=== PATIENT | male | born 1940 | race Caucasian/White ===

== ENCOUNTER 2017-09-22 16:06 | Inpatient (IN) | payer MEDICARE, BC ==
[2017-09-22] MEDS ORDERED: Sodium Chloride 0.9% 1000 ML 1,000 ML IV STA (16:39)
[2017-09-22] MEDS ORDERED: ROCEPHIN 1 Gm-D5w 50 ml Bag** 1 G/50 ML IVPB IV STA (17:02)
[2017-09-22] MEDS ORDERED: Zithromax 500 MG/ 250 ML NaCl Premix 500 MG/250 ML IVPB IV STA (17:02)
--- NOTE | 2017-09-22 17:09 | ERPHSYRPT ---
- History of Present Illness Time Seen by Provider: 09/22/17 16:54 Source: patient Exam Limitations: no limitations Patient Subjective Stated Complaint: sob, cough and weakness. pt states onset approx 1.5 weeks service [employer] with decreased appetite pt had chest xray on 09/21 MD called him today and told him to come to er for pneumonia Triage Nursing Assessment: To er c/o sob with exertion and cough. pt arrives p/w /d resp easy and non labored. pt able to ambulate to room without difficulty. coarseness noted to left lungs upper and lower right cta. Physician History: Pt has been coughing for 10 days, diagnosed with Sinusitis by his doctor and completed a Z-pack 4 days ago. He went to a fishing trip over the past weekend, and became worse. He denies productive cough, wheezing, severe SOB, chest pain, vomiting or fever. He smokes pipes, denies cardiac history. He was sent for Chest X ray yesterday, the result was reported today to his doctor, and he was contacted to come here. Timing/Duration: day(s) (10) Cough Quality/Degree: moderate Possible Cause: occasional episodes Modifying Factors: Improves With: nothing Associated Symptoms: cough International travel in last 2 weeks: No Allergies/Adverse Reactions: sulfamethoxazole [From Bactrim] Allergy (Verified 09/22/17 16:24) trimethoprim [From Bactrim] Allergy (Verified 09/22/17 16:24) Home Medications: Bethanechol Chloride [Urecholine] 50 mg PO TID 07/30/13 [History] Tamsulosin HCl 0.4 mg [Flomax 0.4 MG] 0.4 mg PO DAILY 07/30/13 [History] Folic Acid 1 mg PO DAILY 10/04/14 [History] Gabapentin 300 mg PO BID 04/12/15 [History] Hx Tetanus, Diphtheria Vaccination/Date Given: No (UNKNOWN) Hx Influenza Vaccination/Date Given: No Hx Pneumococcal Vaccination/Date Given: Yes (2018) - Review of Systems Constitutional: No Symptoms Respiratory: Cough, No Dyspnea Cardiac: No Chest Pain, No Edema All Other Systems: Reviewed and Negative - Past Medical History Pertinent Past Medical History: Yes Neurological History: Peripheral Neuropathy ENT History: No Pertinent History Cardiac History: No Pertinent History Respiratory History: No Pertinent History Endocrine Medical History: No Pertinent History Musculoskeletal History: No Pertinent History GI Medical History: Colitis, Other History: Renal Disease, Other Psycho-Social History: No Pertinent History Male Reproductive Disorders: No Pertinent History Other Medical History: kidneys function at 33% - Past Surgical History Past Surgical History: Yes Neuro Surgical History: No Pertinent History Gastrointestinal: Colon Resection Musculoskeletal: Other Other Surgical History: ileostomy, R rotator cuff,R knee surgery. - Social History Smoking Status: Current every day smoker How long have you smoked: 50 years Exposure to second hand smoke: No Drug Use: none Patient Lives Alone: No - Nursing Vital Signs Nursing Vital Signs: Initial Vital Signs Temperature 97.8 F 09/22/17 16:13 Pulse Rate 61 09/22/17 16:13 Respiratory Rate 16 09/22/17 16:13 Blood Pressure 110/68 09/22/17 16:13 O2 Sat by Pulse Oximetry 98 09/22/17 16:13 Pain Scale Pain Intensity 0 - Physical Exam General Appearance: no apparent distress Eye Exam: eyes nml inspection Ears, Nose, Throat Exam: normal ENT inspection, pharynx normal, moist mucous membranes Neck Exam: normal inspection, non-tender, supple, No mass, No JVD Respiratory Exam: normal breath sounds, lungs clear, airway intact, No chest tenderness, No respiratory distress Cardiovascular Exam: regular rate/rhythm, normal heart sounds, normal peripheral pulses, No murmur Gastrointestinal/Abdomen Exam: soft, normal bowel sounds, No tenderness Back Exam: normal inspection, No CVA tenderness Extremity Exam: normal inspection, No calf tenderness, No donita's sign, No pedal edema Neurologic Exam: alert, oriented x 3, normal mood/affect Skin Exam: normal color, warm, dry, No rash Lymphatic Exam: No adenopathy SpO2 Interpretation: normal SpO2: 98 Oxygen Delivery: Room Air - Course Nursing assessment & vital signs reviewed: Yes EKG Interpreted by Me: RATE (62/min.), Right Tyro Deviation, Right Bundle Branch Block, Non-specific ST Changes, Other (unchanged from 04/12/2015) Ordered Tests: Active Orders 24 hr Category Date Time Status EKG-ER Only STAT Care 09/22/17 16:39 Active IV Insertion STAT Care 09/22/17 16:39 Active BLOOD CULTURE Stat Lab 09/22/17 16:55 Received CBC W DIFF Stat Lab 09/22/17 16:55 Completed CMP Stat Lab 09/22/17 16:55 Completed Lactic Acid Stat Lab 09/22/17 17:20 Completed Manual Differential NC Stat Lab 09/22/17 16:55 Completed Medication Summary Discontinued Medications Generic Name Dose Route Start Last Admin Trade Name Pamela PRN Reason Stop Dose Admin Sodium Chloride 1,000 mls @ 999 mls/hr 09/22/17 16:39 09/22/17 17:20 Sodium Chloride 0.9% 1000 Ml IV 09/22/17 17:39 999 mls/hr .Q1H1M STA Administration Ceftriaxone Sodium/Dextrose 1 g in 50 mls @ 100 mls/hr 09/22/17 17:02 17:21 Rocephin 1 Gm-D5w 50 Ml Bag IV 09/22/17 17:31 100 mls/hr STAT STA 100 mls/hr Administration Azithromycin 500 mg in 250 mls @ 250 mls/hr 09/22/17 17:02 09/22/17 18:05 Zithromax 500 Mg/ 250 Ml Nacl Premix IV 09/22/17 18:01 250 mls/hr STAT STA Administration Sodium Chloride Confirm 09/22/17 17:14 Sodium Chloride 0.9% 1000 Ml Administered 09/22/17 17:15 Dose 1,000 mls @ ud .ROUTE .STK-MED ONE Ceftriaxone Sodium/Dextrose Confirm 09/22/17 17:14 Rocephin 1 Gm-D5w 50 Ml Bag Administered 09/22/17 17:15 Dose 1 g in 50 mls @ ud IV .STK-MED ONE Azithromycin Confirm 09/22/17 17:57 Zithromax 500 Mg/ 250 Ml Nacl Premix Administered 09/22/17 17:58 Dose 500 mg in 250 mls @ ud IV .STK-MED ONE Lab/Rad Data: Laboratory Result Diagrams 09/22/17 16:55 09/22/17 16:55 Laboratory Results 09/22/17 09/22/17 09/22/17 Range/Units 17:20 16:55 16:55 WBC 14.6 H (4.0-10.5) K/mm3 RBC 5.21 (4.1-5.6) M/mm3 Hgb 15.6 (12.5-18.0) gm/dl Hct 43.9 (42-50) % MCV 84.3 (78-100) fl MCH 29.9 (26-32) pg MCHC 35.5 (32-36) g/dl RDW 13.2 (11.5-14.0) % Plt Count 367 (150-450) K/mm3 MPV 10.2 H (6-9.5) fl Absolute Granulocytes 12.49 H (1.4-6.9) Segmented Neutrophils 77 H (36.-66.) % Band Neutrophils 3 H (0.0-2.0) % Lymphocytes (Manual) 6 L (24-44) % Monocytes (Manual) 11 (0.0-12.0) % Eosinophils (Manual) 2 (0.00-3.0) % Metamyelocytes 1 % Platelet Estimate NORMAL (NORMAL) RBC Morphology NORMAL Sodium 132 L (137-145) mmol/L Potassium 4.3 (3.5-5.1) mmol/L Chloride 101 (98-107) mmol/L Carbon Dioxide 16 L (22-30) mmol/L Anion Gap 19.3 H (5-15) MEQ/L BUN 66 H (9-20) mg/dL Creatinine 2.30 H (0.66-1.25) mg/dL Estimated GFR 29.3 ML/MIN Glucose 134 H (74-106) mg/dL Lactic Acid 1.6 (0.4-2.0) Calcium 9.7 (8.4-10.2) mg/dL Total Bilirubin 0.30 (0.2-1.3) mg/dL AST 36 (17-59) U/L ALT 46 (0-50) U/L Alkaline Phosphatase 195 H (38-126) U/L Serum Total Protein 8.8 H (6.3-8.2) g/dL Albumin 4.7 (3.5-5.0) g/dL - Progress Progress: improved Air Movement: fair Progress Note: 09/22/17 18:26 I discussed our results with dr Torres, he agreed to admit him for further treatment, iv antibiotics. I informed patient, he agreed. Discussed with : Brigida Will see patient in: hospital (full admit) Counseled pt/family regarding: lab results, diagnosis, need for follow-up, rad results - Departure Time of Disposition: 18:28 Departure Disposition: In-patient Admission Clinical Impression: Pneumonia Qualifiers: Pneumonia type: due to unspecified organism Laterality: left Lung location: lower lobe of lung Qualified Code(s): J18.1 - Lobar pneumonia, unspecified organism Renal failure, chronic Qualifiers: Chronic kidney disease stage: unspecified stage Qualified Code(s): N18.9 - Chronic kidney disease, unspecified Condition: Stable Critical Care Time: No Referrals: NINO TORRES MD [Primary Care Provider] -
[2017-09-22] MEDS ORDERED: Sodium Chloride 0.9% 1000 ML 1,000 ML ONE (17:14)
[2017-09-22] MEDS ORDERED: ROCEPHIN 1 Gm-D5w 50 ml Bag** 1 G/50 ML IVPB IV ONE (17:14)
[2017-09-22 17:17] LABS: Granulocyte Absolute (ANC) 12.49 (1.4-6.9); Hematocrit 43.9 % (42-50); Hemoglobin 15.6 gm/dl (12.5-18.0); Mean Cell Volume 84.3 fl (78-100); Mean Corpuscular Hemoglobin 29.9 pg (26-32); Mean Corpuscular Hgb Concent. 35.5 g/dl (32-36); Mean Platelet Volume 10.2 fl (6-9.5); Platelet Count 367 K/mm3 (150-450); Red Blood Count 5.21 M/mm3 (4.1-5.6); Red Cell Distribution Width 13.2 % (11.5-14.0); White Blood Count 14.6 K/mm3 (4.0-10.5)
[2017-09-22 17:25] LABS: ALBUMIN 4.7 g/dL (3.5-5.0); ANION GAP 19.3 MEQ/L (5-15); BILIRUBIN,TOTAL 0.3 mg/dL (0.2-1.3); Calcium 9.7 mg/dL (8.4-10.2); Creatinine 1 2.3 mg/dL (0.66-1.25); Potassium 4.3 mmol/L (3.5-5.1); Total Protein 8.8 g/dL (6.3-8.2)
[2017-09-22 17:53] LABS: BAND 3 % (0.0-2.0); Eosinophil 2 % (0.00-3.0); Lymphocytes 6 % (24-44); Metamyelocyte 1 %; Monocyte 11 % (0.0-12.0); Neutrophils 77 % (36.-66.); Platelet Estimate NORMAL (NORMAL); Total Cells Counted 100
[2017-09-22] MEDS ORDERED: Zithromax 500 MG/ 250 ML NaCl Premix 500 MG/250 ML IVPB IV ONE (17:57)
[2017-09-22] MEDS ORDERED: Zofran 4 MG/2 ML VIAL IV PRN (21:00)
[2017-09-22] MEDS ORDERED: MILK OF MAGNESIA 30 ML PO PRN (21:00)
[2017-09-22] MEDS ORDERED: MAALOX ES 30 ML UNIT DOSE PO PRN (21:00)
[2017-09-22] MEDS ORDERED: TYLENOL 325 MG PO PRN (21:00)
[2017-09-22] MEDS ORDERED: Senokot-S Tablet PO PRN (21:00)
[2017-09-22] MEDS: FOLATE 1 MG PO SCH (23:56)
[2017-09-22] MEDS: NEURONTIN 300 MG PO SCH (23:56)
[2017-09-22] MEDS: Flomax 0.4 MG PO SCH (23:56)
[2017-09-23] MEDS: Sodium Chloride 0.9% 500 ML 500 ML IV SCH ×2 (01:35→06:46)
[2017-09-23 04:19] LABS: Risk Ratio 2.5
[2017-09-23] MEDS ORDERED: MEDICATION INTERVENTION PO SCH (07:30)
[2017-09-23] MEDS: Ecotrin 325 MG PO SCH (09:14)
[2017-09-23] MEDS ORDERED: BETHANECHOL CHLORIDE 50 MG PO SCH (10:00)
[2017-09-23 10:42] LABS: Hematocrit 37.6 % (42-50); Hemoglobin 12.8 gm/dl (12.5-18.0); Mean Cell Volume 86.8 fl (78-100); Mean Corpuscular Hemoglobin 29.6 pg (26-32); Mean Platelet Volume 10.6 fl (6-9.5); Platelet Count 334 K/mm3 (150-450); Red Blood Count 4.33 M/mm3 (4.1-5.6); Red Cell Distribution Width 13.3 % (11.5-14.0); White Blood Count 12.3 K/mm3 (4.0-10.5)
[2017-09-23 12:50] LABS: Calcium 8.7 mg/dL (8.4-10.2); Creatinine 1 1.51 mg/dL (0.66-1.25); Potassium 4.7 mmol/L (3.5-5.1)
[2017-09-23] MEDS: Sodium Chloride 0.9% 1000 ML 1,000 ML IV SCH (14:34)
--- NOTE | 2017-09-23 15:32 | PCM.HP ---
History of Present Illness - Chief Complaint Chief Complaint: Pneumonia & FAILED OUTPATIENT History of Present Illness: is a 77 year old male.Pt has been coughing for 10 days, diagnosed with Sinusitis by his doctor and completed a Z-pack 4 days ago. He went to a fishing trip over the past weekend, and became worse. He denies productive cough, wheezing, severe SOB, chest pain, vomiting or fever. He smokes pipes, denies cardiac history. He was sent for Chest X ray yesterday, the result was reported today showing CHF and pneumonia changes - Review of Systems Constitutional: No Fever, No Chills Eyes: No Symptoms Ears, Nose, & Throat: No Symptoms Respiratory: No Cough, No Short Of Breath Cardiac: No Chest Pain, No Edema, No Syncope Abdominal/Gastrointestinal: No Abdominal Pain, No Nausea, No Vomiting, No Diarrhea Genitourinary Symptoms: No Dysuria Musculoskeletal: No Back Pain, No Neck Pain Skin: No Rash Neurological: No Dizziness, No Focal Weakness, No Sensory Changes Psychological: No Symptoms Endocrine: No Symptoms Hematologic/Lymphatic: No Symptoms Immunological/Allergic: No Symptoms Medications & Allergies Home Medications: Home Medication List Bethanechol Chloride [Urecholine] 50 mg PO TID 07/30/13 [History Confirmed 09/22] Tamsulosin HCl 0.4 mg [Flomax 0.4 MG] 0.4 mg PO QHS 07/30/13 [History Confirmed 09/22/17] Folic Acid 1 mg PO QHS 10/04/14 [History Confirmed 09/22/17] Gabapentin 600 mg PO QHS 04/12/15 [History Confirmed 09/22/17] Allergies/Adverse Reactions: Allergies Allergy/AdvReac Type Severity Reaction Status Date / Time sulfamethoxazole Allergy Verified 09/22/17 16:24 [From Bactrim] trimethoprim [From Bactrim] Allergy Verified 09/22/17 16:24 - Past Medical History Past Medical History: Yes Neurological History: Peripheral Neuropathy ENT History: No Pertinent History Cardiac History: No Pertinent History Respiratory History: No Pertinent History Endocrine Medical History: No Pertinent History Musculoskelatal History: No Pertinent History GI Medical History: Colitis, Other History: Renal Disease, Other Pyscho-Social History: No Pertinent History Male Reproductive Disorders: No Pertinent History Comment: kidneys function at 33% - Past Surgical History Past Surgical History: Yes Neuro Surgical History: No Pertinent History Cardiac History: No Pertinent History Respiratory Surgery: No Pertinent History GI Surgical History: Colon Resection Genitourinary Surgical Hx: No Pertinent History Musculskeletal Surgical Hx: Other Male Surgical History: No Pertinent History Other Surgical History: ileostomy, R rotator cuff,R knee surgery, colon resection x2 - Social History Smoking Status: Current every day smoker How long have you smoked: 60 years Exposure to second hand smoke: No Alcohol: None Drug Use: none - Physical Exam Vital Signs: Vital Signs - 24 hr Temp Pulse Resp BP Pulse Ox 09/23/17 12:00 18 09/23/17 11:34 97.8 F 56 L 18 107/56 98 09/23/17 07:59 18 09/23/17 07:34 98.7 F 58 L 18 109/56 96 09/23/17 04:00 98.1 F 53 L 17 100/59 95 09/23/17 00:00 98 F 58 L 18 112/57 97 09/22/17 21:36 98.1 F 62 17 110/60 92 L 09/22/17 21:00 97 09/22/17 18:28 98 09/22/17 18:26 98.1 F 60 18 100/46 95 09/22/17 16:57 99/56 96 09/22/17 16:13 97.8 F 61 16 110/68 97 General Appearance: no apparent distress, alert Neurologic Exam: alert, oriented x 3, cooperative, normal mood/affect, nml cerebellar function, nml station & gait, sensation nml, No motor deficits Eye Exam: PERRL/EOMI, eyes nml inspection Ears, Nose, Throat Exam: normal ENT inspection, TMs normal, pharynx normal, moist mucous membranes Neck Exam: normal inspection, non-tender, supple, full range of motion Respiratory Exam: diminished breath sounds, crackles/rales, rhonchi, wheezing, No respiratory distress Cardiovascular Exam: regular rate/rhythm, normal heart sounds, normal peripheral pulses Gastrointestinal/Abdomen Exam: soft, normal bowel sounds, No tenderness, No mass Back Exam: normal inspection, normal range of motion, No CVA tenderness, No vertebral tenderness Extremity Exam: normal inspection, normal range of motion, pelvis stable Skin Exam: normal color, warm, dry, No rash Lymphatic Exam: No adenopathy Results - Labs Lab/Micro Results: Lab Results-Last 24 Hours 09/22/17 09/22/17 09/22/17 Range/Units 16:55 16:55 17:20 WBC 14.6 H (4.0-10.5) K/mm3 RBC 5.21 (4.1-5.6) M/mm3 Hgb 15.6 (12.5-18.0) gm/dl Hct 43.9 (42-50) % MCV 84.3 (78-100) fl MCH 29.9 (26-32) pg MCHC 35.5 (32-36) g/dl RDW 13.2 (11.5-14.0) % Plt Count 367 (150-450) K/mm3 MPV 10.2 H (6-9.5) fl Absolute Granulocytes 12.49 H (1.4-6.9) Segmented Neutrophils 77 H (36.-66.) % Band Neutrophils 3 H (0.0-2.0) % Lymphocytes (Manual) 6 L (24-44) % Monocytes (Manual) 11 (0.0-12.0) % Eosinophils (Manual) 2 (0.00-3.0) % Metamyelocytes 1 % Platelet Estimate NORMAL (NORMAL) RBC Morphology NORMAL Sodium 132 L (137-145) mmol/L Potassium 4.3 (3.5-5.1) mmol/L Chloride 101 (98-107) mmol/L Carbon Dioxide 16 L (22-30) mmol/L Anion Gap 19.3 H (5-15) MEQ/L BUN 66 H (9-20) mg/dL Creatinine 2.30 H (0.66-1.25) mg/dL Estimated GFR 29.3 ML/MIN Glucose 134 H (74-106) mg/dL Lactic Acid 1.6 (0.4-2.0) Calcium 9.7 (8.4-10.2) mg/dL Total Bilirubin 0.30 (0.2-1.3) mg/dL AST 36 (17-59) U/L ALT 46 (0-50) U/L Alkaline Phosphatase 195 H (38-126) U/L Troponin I (0.000-0.034) ng/mL Serum Total Protein 8.8 H (6.3-8.2) g/dL Albumin 4.7 (3.5-5.0) g/dL Triglycerides (30-150) mg/dL Cholesterol (50-200) mg/dL LDL Cholesterol (30-100) mg/dL HDL Cholesterol (40-60) mg/dL Heart Disease Risk Ratio 09/22/17 09/22/17 09/23/17 Range/Units 18:30 21:44 00:56 WBC (4.0-10.5) K/mm3 RBC (4.1-5.6) M/mm3 Hgb (12.5-18.0) gm/dl Hct (42-50) % MCV (78-100) fl MCH (26-32) pg MCHC (32-36) g/dl RDW (11.5-14.0) % Plt Count (150-450) K/mm3 MPV (6-9.5) fl Absolute Granulocytes (1.4-6.9) Segmented Neutrophils (36.-66.) % Band Neutrophils (0.0-2.0) % Lymphocytes (Manual) (24-44) % Monocytes (Manual) (0.0-12.0) % Eosinophils (Manual) (0.00-3.0) % Metamyelocytes % Platelet Estimate (NORMAL) RBC Morphology Sodium (137-145) mmol/L Potassium (3.5-5.1) mmol/L Chloride (98-107) mmol/L Carbon Dioxide (22-30) mmol/L Anion Gap (5-15) MEQ/L BUN (9-20) mg/dL Creatinine (0.66-1.25) mg/dL Estimated GFR ML/MIN Glucose (74-106) mg/dL Lactic Acid (0.4-2.0) Calcium (8.4-10.2) mg/dL Total Bilirubin (0.2-1.3) mg/dL AST (17-59) U/L ALT (0-50) U/L Alkaline Phosphatase (38-126) U/L Troponin I 0.043 H* 0.044 H* 0.044 H* (0.000-0.034) ng/mL Serum Total Protein (6.3-8.2) g/dL Albumin (3.5-5.0) g/dL Triglycerides (30-150) mg/dL Cholesterol (50-200) mg/dL LDL Cholesterol (30-100) mg/dL HDL Cholesterol (40-60) mg/dL Heart Disease Risk Ratio 09/23/17 09/23/17 09/23/17 Range/Units 03:47 03:47 06:00 WBC 12.3 H (4.0-10.5) K/mm3 RBC 4.33 (4.1-5.6) M/mm3 Hgb 12.8 (12.5-18.0) gm/dl Hct 37.6 L (42-50) % MCV 86.8 (78-100) fl MCH 29.6 (26-32) pg MCHC 34.0 (32-36) g/dl RDW 13.3 (11.5-14.0) % Plt Count 334 (150-450) K/mm3 MPV 10.6 H (6-9.5) fl Absolute Granulocytes (1.4-6.9) Segmented Neutrophils (36.-66.) % Band Neutrophils (0.0-2.0) % Lymphocytes (Manual) (24-44) % Monocytes (Manual) (0.0-12.0) % Eosinophils (Manual) (0.00-3.0) % Metamyelocytes % Platelet Estimate (NORMAL) RBC Morphology Sodium (137-145) mmol/L Potassium (3.5-5.1) mmol/L Chloride (98-107) mmol/L Carbon Dioxide (22-30) mmol/L Anion Gap (5-15) MEQ/L BUN (9-20) mg/dL Creatinine (0.66-1.25) mg/dL Estimated GFR ML/MIN Glucose (74-106) mg/dL Lactic Acid (0.4-2.0) Calcium (8.4-10.2) mg/dL Total Bilirubin (0.2-1.3) mg/dL AST (17-59) U/L ALT (0-50) U/L Alkaline Phosphatase (38-126) U/L Troponin I 0.046 H* (0.000-0.034) ng/mL Serum Total Protein (6.3-8.2) g/dL Albumin (3.5-5.0) g/dL Triglycerides 86 (30-150) mg/dL Cholesterol 94 (50-200) mg/dL LDL Cholesterol 31 (30-100) mg/dL HDL Cholesterol 37 L (40-60) mg/dL Heart Disease Risk Ratio 2.5 09/23/17 09/23/17 Range/Units 06:00 06:28 WBC (4.0-10.5) K/mm3 RBC (4.1-5.6) M/mm3 Hgb (12.5-18.0) gm/dl Hct (42-50) % MCV (78-100) fl MCH (26-32) pg MCHC (32-36) g/dl RDW (11.5-14.0) % Plt Count (150-450) K/mm3 MPV (6-9.5) fl Absolute Granulocytes (1.4-6.9) Segmented Neutrophils (36.-66.) % Band Neutrophils (0.0-2.0) % Lymphocytes (Manual) (24-44) % Monocytes (Manual) (0.0-12.0) % Eosinophils (Manual) (0.00-3.0) % Metamyelocytes % Platelet Estimate (NORMAL) RBC Morphology Sodium 137 (137-145) mmol/L Potassium 4.7 (3.5-5.1) mmol/L Chloride 111 H (98-107) mmol/L Carbon Dioxide 15 L* (22-30) mmol/L Anion Gap 17.0 H (5-15) MEQ/L BUN 51 H (9-20) mg/dL Creatinine 1.51 H (0.66-1.25) mg/dL Estimated GFR 47.6 ML/MIN Glucose 82 (74-106) mg/dL Lactic Acid (0.4-2.0) Calcium 8.7 (8.4-10.2) mg/dL Total Bilirubin (0.2-1.3) mg/dL AST (17-59) U/L ALT (0-50) U/L Alkaline Phosphatase (38-126) U/L Troponin I 0.043 H* (0.000-0.034) ng/mL Serum Total Protein (6.3-8.2) g/dL Albumin (3.5-5.0) g/dL Triglycerides (30-150) mg/dL Cholesterol (50-200) mg/dL LDL Cholesterol (30-100) mg/dL HDL Cholesterol (40-60) mg/dL Heart Disease Risk Ratio - Other Procedures and Tests Respiratory Therapy 09/24/17 05:00 EKG ROUTINE 09/25/17 05:00 EKG ROUTINE 09/26/17 05:00 EKG ROUTINE Assessment/Plan (1) CHF (congestive heart failure), NYHA class III Current Visit: Yes Status: Acute Qualifiers: Congestive heart failure type: combined Congestive heart failure chronicity : acute on chronic Qualified Code(s): I50.43 - Acute on chronic combined systolic (congestive) and diastolic (congestive) heart failure Code(s): I50.9 - HEART FAILURE, UNSPECIFIED (2) CHF, acute on chronic Current Visit: Yes Status: Acute Qualifiers: Heart failure type: combined systolic and diastolic Qualified Code(s): I50.43 - Acute on chronic combined systolic (congestive) and diastolic ( congestive) heart failure Code(s): I50.9 - HEART FAILURE, UNSPECIFIED (3) Pneumonia Current Visit: Yes Status: Acute Onset Date: ~09/22/17 Qualifiers: Pneumonia type: due to unspecified organism Laterality: left Lung location: lower lobe of lung Qualified Code(s): J18.1 - Lobar pneumonia, unspecified organism Code(s): J18.9 - PNEUMONIA, UNSPECIFIED ORGANISM (4) Renal failure, chronic Current Visit: Yes Status: Chronic Qualifiers: Chronic kidney disease stage: unspecified stage Qualified Code(s): N18.9 - Chronic kidney disease, unspecified (5) Renal failure Current Visit: No Status: Acute
--- NOTE | 2017-09-23 15:37 | PCM.NOTE ---
Date and Time: 09/23/17 1532 Subjective Assessment: doing better - Review of Systems Constitutional: No Fever, No Chills Eyes: No Symptoms Ears, Nose, & Throat: No Symptoms Respiratory: Orthopnea, Short Of Breath, No Cough Cardiac: No Chest Pain, No Edema, No Syncope Abdominal/Gastrointestinal: No Abdominal Pain, No Nausea, No Vomiting, No Diarrhea Genitourinary Symptoms: No Dysuria Musculoskeletal: No Back Pain, No Neck Pain Skin: No Rash Neurological: No Dizziness, No Focal Weakness, No Sensory Changes Psychological: No Symptoms Endocrine: No Symptoms Hematologic/Lymphatic: No Symptoms Immunological/Allergic: No Symptoms Objective Exam General Appearance: no apparent distress, alert Neurologic Exam: alert, oriented x 3, cooperative, normal mood/affect, nml cerebellar function, sensation nml, No motor deficits Skin Exam: normal color, warm, dry Eye Exam: PERRL, EOMI, eyes nml inspection Ears, Nose, Throat Exam: normal ENT inspection, pharynx normal, moist mucous membranes Neck Exam: normal inspection, non-tender, supple, full range of motion Respiratory Exam: normal breath sounds, crackles/rales, rhonchi, wheezing, No respiratory distress Cardiovascular Exam: regular rate/rhythm, normal heart sounds Gastrointestinal/Abdomen Exam: soft, No tenderness, No mass Extremity Exam: normal inspection, normal range of motion Back Exam: normal inspection, normal range of motion, No CVA tenderness, No vertebral tenderness Male Genitalia Exam: deferred Rectal Exam: deferred OBJECTIVE DATA Vital Signs: Vital Signs - 24 hr Temp Pulse Resp BP Pulse Ox 09/23/17 12:00 18 09/23/17 11:34 97.8 F 56 L 18 107/56 98 09/23/17 07:59 18 09/23/17 07:34 98.7 F 58 L 18 109/56 96 09/23/17 04:00 98.1 F 53 L 17 100/59 95 09/23/17 00:00 98 F 58 L 18 112/57 97 09/22/17 21:36 98.1 F 62 17 110/60 92 L 09/22/17 21:00 97 09/22/17 18:28 98 09/22/17 18:26 98.1 F 60 18 100/46 95 09/22/17 16:57 99/56 96 09/22/17 16:13 97.8 F 61 16 110/68 97 Pain Assessment - Last Documented Pain Intensity 2 Pain Scale Used [facility] Intake and Output: Intake & Output 09/21/17 09/22/17 09/23/17 09/24/17 11:59 11:59 11:59 11:59 Intake Total 2877 250 Output Total 1 Balance 2876 250 Weight 63.4 kg Lab Results: Lab Results-Last 24 Hours 09/22/17 09/22/17 09/22/17 Range/Units 16:55 16:55 17:20 WBC 14.6 H (4.0-10.5) K/mm3 RBC 5.21 (4.1-5.6) M/mm3 Hgb 15.6 (12.5-18.0) gm/dl Hct 43.9 (42-50) % MCV 84.3 (78-100) fl MCH 29.9 (26-32) pg MCHC 35.5 (32-36) g/dl RDW 13.2 (11.5-14.0) % Plt Count 367 (150-450) K/mm3 MPV 10.2 H (6-9.5) fl Absolute Granulocytes 12.49 H (1.4-6.9) Segmented Neutrophils 77 H (36.-66.) % Band Neutrophils 3 H (0.0-2.0) % Lymphocytes (Manual) 6 L (24-44) % Monocytes (Manual) 11 (0.0-12.0) % Eosinophils (Manual) 2 (0.00-3.0) % Metamyelocytes 1 % Platelet Estimate NORMAL (NORMAL) RBC Morphology NORMAL Sodium 132 L (137-145) mmol/L Potassium 4.3 (3.5-5.1) mmol/L Chloride 101 (98-107) mmol/L Carbon Dioxide 16 L (22-30) mmol/L Anion Gap 19.3 H (5-15) MEQ/L BUN 66 H (9-20) mg/dL Creatinine 2.30 H (0.66-1.25) mg/dL Estimated GFR 29.3 ML/MIN Glucose 134 H (74-106) mg/dL Lactic Acid 1.6 (0.4-2.0) Calcium 9.7 (8.4-10.2) mg/dL Total Bilirubin 0.30 (0.2-1.3) mg/dL AST 36 (17-59) U/L ALT 46 (0-50) U/L Alkaline Phosphatase 195 H (38-126) U/L Troponin I (0.000-0.034) ng/mL Serum Total Protein 8.8 H (6.3-8.2) g/dL Albumin 4.7 (3.5-5.0) g/dL Triglycerides (30-150) mg/dL Cholesterol (50-200) mg/dL LDL Cholesterol (30-100) mg/dL HDL Cholesterol (40-60) mg/dL Heart Disease Risk Ratio 09/22/17 09/22/17 09/23/17 Range/Units 18:30 21:44 00:56 WBC (4.0-10.5) K/mm3 RBC (4.1-5.6) M/mm3 Hgb (12.5-18.0) gm/dl Hct (42-50) % MCV (78-100) fl MCH (26-32) pg MCHC (32-36) g/dl RDW (11.5-14.0) % Plt Count (150-450) K/mm3 MPV (6-9.5) fl Absolute Granulocytes (1.4-6.9) Segmented Neutrophils (36.-66.) % Band Neutrophils (0.0-2.0) % Lymphocytes (Manual) (24-44) % Monocytes (Manual) (0.0-12.0) % Eosinophils (Manual) (0.00-3.0) % Metamyelocytes % Platelet Estimate (NORMAL) RBC Morphology Sodium (137-145) mmol/L Potassium (3.5-5.1) mmol/L Chloride (98-107) mmol/L Carbon Dioxide (22-30) mmol/L Anion Gap (5-15) MEQ/L BUN (9-20) mg/dL Creatinine (0.66-1.25) mg/dL Estimated GFR ML/MIN Glucose (74-106) mg/dL Lactic Acid (0.4-2.0) Calcium (8.4-10.2) mg/dL Total Bilirubin (0.2-1.3) mg/dL AST (17-59) U/L ALT (0-50) U/L Alkaline Phosphatase (38-126) U/L Troponin I 0.043 H* 0.044 H* 0.044 H* (0.000-0.034) ng/mL Serum Total Protein (6.3-8.2) g/dL Albumin (3.5-5.0) g/dL Triglycerides (30-150) mg/dL Cholesterol (50-200) mg/dL LDL Cholesterol (30-100) mg/dL HDL Cholesterol (40-60) mg/dL Heart Disease Risk Ratio 09/23/17 09/23/17 09/23/17 Range/Units 03:47 03:47 06:00 WBC 12.3 H (4.0-10.5) K/mm3 RBC 4.33 (4.1-5.6) M/mm3 Hgb 12.8 (12.5-18.0) gm/dl Hct 37.6 L (42-50) % MCV 86.8 (78-100) fl MCH 29.6 (26-32) pg MCHC 34.0 (32-36) g/dl RDW 13.3 (11.5-14.0) % Plt Count 334 (150-450) K/mm3 MPV 10.6 H (6-9.5) fl Absolute Granulocytes (1.4-6.9) Segmented Neutrophils (36.-66.) % Band Neutrophils (0.0-2.0) % Lymphocytes (Manual) (24-44) % Monocytes (Manual) (0.0-12.0) % Eosinophils (Manual) (0.00-3.0) % Metamyelocytes % Platelet Estimate (NORMAL) RBC Morphology Sodium (137-145) mmol/L Potassium (3.5-5.1) mmol/L Chloride (98-107) mmol/L Carbon Dioxide (22-30) mmol/L Anion Gap (5-15) MEQ/L BUN (9-20) mg/dL Creatinine (0.66-1.25) mg/dL Estimated GFR ML/MIN Glucose (74-106) mg/dL Lactic Acid (0.4-2.0) Calcium (8.4-10.2) mg/dL Total Bilirubin (0.2-1.3) mg/dL AST (17-59) U/L ALT (0-50) U/L Alkaline Phosphatase (38-126) U/L Troponin I 0.046 H* (0.000-0.034) ng/mL Serum Total Protein (6.3-8.2) g/dL Albumin (3.5-5.0) g/dL Triglycerides 86 (30-150) mg/dL Cholesterol 94 (50-200) mg/dL LDL Cholesterol 31 (30-100) mg/dL HDL Cholesterol 37 L (40-60) mg/dL Heart Disease Risk Ratio 2.5 09/23/17 09/23/17 Range/Units 06:00 06:28 WBC (4.0-10.5) K/mm3 RBC (4.1-5.6) M/mm3 Hgb (12.5-18.0) gm/dl Hct (42-50) % MCV (78-100) fl MCH (26-32) pg MCHC (32-36) g/dl RDW (11.5-14.0) % Plt Count (150-450) K/mm3 MPV (6-9.5) fl Absolute Granulocytes (1.4-6.9) Segmented Neutrophils (36.-66.) % Band Neutrophils (0.0-2.0) % Lymphocytes (Manual) (24-44) % Monocytes (Manual) (0.0-12.0) % Eosinophils (Manual) (0.00-3.0) % Metamyelocytes % Platelet Estimate (NORMAL) RBC Morphology Sodium 137 (137-145) mmol/L Potassium 4.7 (3.5-5.1) mmol/L Chloride 111 H (98-107) mmol/L Carbon Dioxide 15 L* (22-30) mmol/L Anion Gap 17.0 H (5-15) MEQ/L BUN 51 H (9-20) mg/dL Creatinine 1.51 H (0.66-1.25) mg/dL Estimated GFR 47.6 ML/MIN Glucose 82 (74-106) mg/dL Lactic Acid (0.4-2.0) Calcium 8.7 (8.4-10.2) mg/dL Total Bilirubin (0.2-1.3) mg/dL AST (17-59) U/L ALT (0-50) U/L Alkaline Phosphatase (38-126) U/L Troponin I 0.043 H* (0.000-0.034) ng/mL Serum Total Protein (6.3-8.2) g/dL Albumin (3.5-5.0) g/dL Triglycerides (30-150) mg/dL Cholesterol (50-200) mg/dL LDL Cholesterol (30-100) mg/dL HDL Cholesterol (40-60) mg/dL Heart Disease Risk Ratio Assessment/Plan (1) CHF (congestive heart failure), NYHA class III Current Visit: Yes Status: Acute Qualifiers: Congestive heart failure type: combined Congestive heart failure chronicity : acute on chronic Qualified Code(s): I50.43 - Acute on chronic combined systolic (congestive) and diastolic (congestive) heart failure Code(s): I50.9 - HEART FAILURE, UNSPECIFIED (2) CHF, acute on chronic Current Visit: Yes Status: Acute Qualifiers: Heart failure type: combined systolic and diastolic Qualified Code(s): I50.43 - Acute on chronic combined systolic (congestive) and diastolic ( congestive) heart failure Code(s): I50.9 - HEART FAILURE, UNSPECIFIED (3) Pneumonia Current Visit: Yes Status: Acute Onset Date: ~09/22/17 Qualifiers: Pneumonia type: due to unspecified organism Laterality: left Lung location: lower lobe of lung Qualified Code(s): J18.1 - Lobar pneumonia, unspecified organism Code(s): J18.9 - PNEUMONIA, UNSPECIFIED ORGANISM (4) Renal failure, chronic Current Visit: Yes Status: Chronic Qualifiers: Chronic kidney disease stage: unspecified stage Qualified Code(s): N18.9 - Chronic kidney disease, unspecified (5) Renal failure Current Visit: No Status: Acute
[2017-09-23] MEDS: Flomax 0.4 MG PO SCH (22:20)
[2017-09-23] MEDS: NEURONTIN 300 MG PO SCH (22:20)
[2017-09-23] MEDS: FOLATE 1 MG PO SCH (22:21)
[2017-09-24] MEDS: Sodium Chloride 0.9% 1000 ML 1,000 ML IV SCH (00:51)
[2017-09-24] MEDS: Ecotrin 325 MG PO SCH (09:53)
[2017-09-24] MEDS ORDERED: ROCEPHIN 1 Gm-D5w 50 ml Bag** 1 G/50 ML IVPB IV SCH (10:00)
[2017-09-24] MEDS ORDERED: Zithromax 500 MG/ 250 ML NaCl Premix 500 MG/250 ML IVPB IV SCH (10:00)
--- NOTE | 2017-09-24 11:59 | PCM.DS ---
Discharge Summary Date of Admission: 09/22/17 20:41 Admitting Physician: NINO TORRES Primary Care Provider: NINO TORRES Allergies Allergies sulfamethoxazole [From Bactrim] Allergy (Verified 09/22/17 16:24) trimethoprim [From Bactrim] Allergy (Verified 09/22/17 16:24) Hospital Summary - Hospital Course Hospital Course: Chief Complaint Diagnosis Pneumonia & FAILED OUTPATIENT Allergies Allergy/AdvReac Type Severity Reaction Status Date / Time sulfamethoxazole Allergy Verified 09/22/17 16:24 [From Bactrim] trimethoprim [From Bactrim] Allergy Verified 09/22/17 16:24 Vital Signs (Last 24 hours) Temp Pulse Resp BP Pulse Ox 09/24/17 08:00 18 09/24/17 07:41 97.6 F 51 L 18 118/57 98 09/24/17 04:00 97.8 F 57 L 14 109/53 94 L 09/24/17 00:00 98.8 F 57 L 16 100/52 97 09/23/17 20:00 97.4 F 58 L 19 112/55 97 09/23/17 16:00 97.8 F 64 18 108/58 96 09/23/17 12:00 18 Home Medications Medication Instructions Recorded Confirmed Last Taken Type Cephalexin Mh 500 mg [Keflex 500 500 mg PO QID #28 capsule 09/24/17 Unknown Rx mg] Current Medications Generic Name Dose Route Start Last Admin Trade Name Freq PRN Reason Stop Dose Admin Acetaminophen 650 mg 09/22/17 21:00 Tylenol 325 Mg PO 10/22/17 20:59 Q4H PRN PRN PAIN AND/OR FEVER Al Hydrox/Mg Hydrox/Simethicone 30 ml 09/22/17 21:00 Maalox Es 30 Ml Unit Dose PO 10/22/17 20:59 Q4H PRN PRN INDIGESTION Aspirin 325 mg 09/23/17 10:00 09/24/17 09:53 Ecotrin 325 Mg PO 10/23/17 09:59 325 mg DAILY TUNG Administration Folic Acid 1 mg 09/22/17 23:45 09/23/17 22:21 Folate 1 Mg PO 10/22/17 23:44 1 mg QHS TUNG Administration Gabapentin 600 mg 09/22/17 23:46 09/23/17 22:20 Neurontin 300 Mg PO 10/22/17 23:45 600 mg HS TUNG Administration Sodium Chloride 1,000 mls @ 30 mls/hr 09/23/17 07:15 09/24/17 00:51 Sodium Chloride 0.9% 1000 Ml IV 10/23/17 07:14 100 mls/hr .Q24H TUNG Administration Azithromycin 500 mg in 250 mls @ 250 mls/hr 09/24/17 10:00 09/24/17 09:55 Zithromax 500 Mg/ 250 Ml Nacl Premix IV 10/24/17 09:59 250 mls/hr Q24H10 TUNG Administration Ceftriaxone Sodium/Dextrose 1 g in 50 mls @ 100 mls/hr 09/24/17 10:00 09:53 Rocephin 1 Gm-D5w 50 Ml Bag IV 10/24/17 09:59 100 mls/hr Q24H10 TUNG Administration Magnesium Hydroxide 30 - 60 ml 09/22/17 21:00 Milk Of Magnesia 30 Ml PO 10/22/17 20:59 QDP PRN CONSTIPATION Miscellaneous Information 1 each 09/23/17 07:30 Medication Intervention PO 10/23/17 07:29 .RN TO CHECK ON TUNG Ondansetron HCl 4 mg 09/22/17 21:00 Zofran 4 Mg/2 Ml Vial IV 10/22/17 20:59 Q4H PRN PRN NAUSEA/VOMITING Senna/Docusate Sodium 2 udtab 09/22/17 21:00 Senokot-S Tablet PO 10/22/17 20:59 BID PRN PRN CONSTIPATION Tamsulosin HCl 0.4 mg 09/22/17 23:45 09/23/17 22:20 Flomax 0.4 Mg PO 10/22/17 23:44 0.4 mg HS TUNG Administration Discontinued Medications Generic Name Dose Route Start Last Admin Trade Name Freq PRN Reason Stop Dose Admin Sodium Chloride 1,000 mls @ 999 mls/hr 09/22/17 16:39 09/22/17 19:11 Sodium Chloride 0.9% 1000 Ml IV 09/22/17 17:39 Infused .Q1H1M STA Infusion Ceftriaxone Sodium/Dextrose 1 g in 50 mls @ 100 mls/hr 09/22/17 17:02 19:10 Rocephin 1 Gm-D5w 50 Ml Bag IV 09/22/17 17:31 Infused STAT STA Infusion Azithromycin 500 mg in 250 mls @ 250 mls/hr 09/22/17 17:02 09/22/17 19:12 Zithromax 500 Mg/ 250 Ml Nacl Premix IV 09/22/17 18:01 Infused STAT STA Infusion Sodium Chloride Confirm 09/22/17 17:14 Sodium Chloride 0.9% 1000 Ml Administered 09/22/17 17:15 Dose 1,000 mls @ ud .ROUTE .STK-MED ONE Ceftriaxone Sodium/Dextrose Confirm 09/22/17 17:14 Rocephin 1 Gm-D5w 50 Ml Bag Administered 09/22/17 17:15 Dose 1 g in 50 mls @ ud IV .STK-MED ONE Azithromycin Confirm 09/22/17 17:57 Zithromax 500 Mg/ 250 Ml Nacl Premix Administered 09/22/17 17:58 Dose 500 mg in 250 mls @ ud IV .STK-MED ONE Sodium Chloride 500 mls @ 100 mls/hr 09/22/17 21:00 09/23/17 06:46 Sodium Chloride 0.9% 500 Ml IV 10/22/17 20:59 100 mls/hr .Q5H TUNG Administration Intake & Output (Last 24 hours) 09/21/17 09/22/17 09/23/17 09/24/17 11:59 11:59 11:59 11:59 Intake Total 2877 3592 Output Total 1 Balance 2876 3592 Weight 63.4 kg 64 kg Microbiology Results (Last 24 hours) 09/22/17 16:55 Blood Blood Culture Gram Stain - Pending 09/22/17 16:55 Blood Blood Culture - Preliminary NO GROWTH TO DATE 09/22/17 16:55 Blood Blood Culture Gram Stain - Pending 09/22/17 16:55 Blood Blood Culture - Preliminary NO GROWTH TO DATE Laboratory Results (Last 24 hours) 09/23/17 06:00 Sodium 137 Potassium 4.7 Chloride 111 H Carbon Dioxide 15 L* Anion Gap 17.0 H BUN 51 H Creatinine 1.51 H Estimated GFR 47.6 Glucose 82 Calcium 8.7 Orders (Last 24 hours) Category Date Time Status Discharge Routine Discharge 09/24/17 Ordered Azithromycin 500 mg/250 ml [Zithromax 500 MG/ 250 ML Med 09/24/17 10:00 Active NaCl Premix] 500 mg in 250 ml IV Q24H10 Ceftriaxone 1 GM/50 ML PREMIX* [ROCEPHIN 1 Gm-D5w 50 ml Med 09/24/17 10:00 Active Bag] 1 g in 50 ml IV Q24H10 EKG ROUTINE RT 09/24/17 05:00 Completed EKG ROUTINE RT 09/25/17 05:00 Active EKG ROUTINE RT 09/26/17 05:00 Active Patient Care Notes (Last 24 hours) 09/24/17 11:11 Nursing Note by Nimisha Smith delivered antibiotic. Discharge instructions reviewed with pt. Pt denies any questions at this time. Pt. states his son is going to pick him up after he is off work at 1430. Needs met at this time. Initialized on 09/24/17 11:11 - END OF NOTE 09/23/17 21:06 Nursing Note by Faye Alcala 20:00 VITAL SIGNS DONE BY ROSALIA, CHARTED BY FREDERICK [place] Initialized on 09/23/17 21:06 - END OF NOTE - Vitals & Intake/Output Vital Signs: Vital Signs Temperature 97.6 F 09/24/17 07:41 Pulse Rate 51 L 09/24/17 07:41 Respiratory Rate 18 09/24/17 08:00 Blood Pressure 118/57 09/24/17 07:41 O2 Sat by Pulse Oximetry 98 09/24/17 07:41 Intake & Output: Intake & Output 09/21/17 09/22/17 09/23/17 09/24/17 11:59 11:59 11:59 11:59 Intake Total 2877 3592 Output Total 1 Balance 2876 3592 Weight 63.4 kg 64 kg - Lab Result Diagrams: 09/23/17 06:00 09/23/17 06:00 Lab Results-Last 24 Hrs: Lab Results-Last 24 Hours 09/23/17 Range/Units 06:00 Sodium 137 (137-145) mmol/L Potassium 4.7 (3.5-5.1) mmol/L Chloride 111 H (98-107) mmol/L Carbon Dioxide 15 L* (22-30) mmol/L Anion Gap 17.0 H (5-15) MEQ/L BUN 51 H (9-20) mg/dL Creatinine 1.51 H (0.66-1.25) mg/dL Estimated GFR 47.6 ML/MIN Glucose 82 (74-106) mg/dL Calcium 8.7 (8.4-10.2) mg/dL Micro Results-Entire Visit: Microbiology 09/22/17 16:55 Blood Culture - Preliminary Blood NO GROWTH TO DATE 09/22/17 16:55 Blood Culture - Preliminary Blood NO GROWTH TO DATE - Procedures and Test Procedures and Tests throughout Hospitalization: Therapy Orders & Screens 09/22/17 22:08 Smoking Cessation Education ONCE Comment: Diagnosis: PNE Smoking Status: Current every day smoker How long have you smoked: 60 years Have you smoked in the past 12 months: Yes Approximately how many cigarettes per day: Smokes a pipe all day long. Do you dip or chew tobacco: No 09/23/17 01:09 EKG ROUTINE Comment: 09/24/17 05:00 EKG ROUTINE Comment: 09/25/17 05:00 EKG ROUTINE Comment: 09/26/17 05:00 EKG ROUTINE Comment: Discharge Exam General Appearance: no apparent distress, alert Neurologic Exam: alert, oriented x 3, cooperative, normal mood/affect, nml cerebellar function, sensation nml, No motor deficits Skin Exam: normal color, warm, dry Eye Exam: PERRL, EOMI, eyes nml inspection Ears, Nose, Throat Exam: normal ENT inspection, pharynx normal, moist mucous membranes Neck Exam: normal inspection, non-tender, supple, full range of motion Respiratory Exam: normal breath sounds, lungs clear, No respiratory distress Cardiovascular Exam: regular rate/rhythm, normal heart sounds Gastrointestinal/Abdomen Exam: soft, No tenderness, No mass Extremity Exam: normal inspection, normal range of motion Back Exam: normal inspection, normal range of motion, No CVA tenderness, No vertebral tenderness Male Genitalia Exam: deferred Rectal Exam: deferred Final Diagnosis/Problem List - Final Discharge Diagnosis/Problem (1) CHF (congestive heart failure), NYHA class III Current Visit: Yes Status: Resolved (2) CHF, acute on chronic Current Visit: Yes Status: Resolved (3) Pneumonia Current Visit: Yes Status: Resolved Onset Date: ~09/22/17 (4) Renal failure, chronic Current Visit: Yes Status: Chronic (5) Renal failure Current Visit: No Status: Chronic - Discharge Discharge Date: 09/24/17 Disposition: Home, Self-Care Condition: Stable Prescriptions: New Cephalexin Mh 500 mg [Keflex 500 mg] 500 mg PO QID #28 capsule Continue Bethanechol Chloride [Urecholine] 50 mg PO TID Tamsulosin HCl 0.4 mg [Flomax 0.4 MG] 0.4 mg PO QHS Folic Acid 1 mg PO QHS Gabapentin 600 mg PO QHS Instructions: Pneumonia, Adult (DC) Follow up with: NINO TORRES MD [Primary Care Provider] - 10/02/17 9:15 am ([facility]) Forms: Discharge Instructions
[2017-09-24 12:29] VITALS: BP 94/52; PULSE 53; O2SAT 99
== END 2017-09-24 14:42 | disposition home or self-care (01) | DRG 291 ==
LOC: ED 16:06 → MED SURG 20:41
PROVIDERS: ADMIT General Practice; ATTEND General Practice
DX: I50.43 Acute on chronic combined systolic (congestive) and diastolic (congestive) heart failure (principal); J18.9 Pneumonia, unspecified organism; I50.84 End stage heart failure; J18.1 Lobar pneumonia, unspecified organism; N18.9 Chronic kidney disease, unspecified; Z79.899 Other long term (current) drug therapy; G62.9 Polyneuropathy, unspecified; Z72.0 Tobacco use; Z90.49 Acquired absence of other specified parts of digestive tract
CPT/HCPCS: 36000; 36415; 80048; 80053; 80061; 83605; 83721; 84484; 85025; 85027; 87040; 93005; 96360; 96365; 96368; 99285; J0456; J0696; A9270-GY

== ENCOUNTER 2019-01-09 09:34 | Emergency (ER) | payer MEDICARE, BC ==
[2019-01-09] MEDS ORDERED: Sodium Chloride 0.9% 1000 ML 1,000 ML IV STA (09:51)
--- NOTE | 2019-01-09 09:53 | ERPHSYRPT ---
- History of Present Illness Time Seen by Provider: 01/09/19 09:45 Source: patient Exam Limitations: no limitations Physician History: Left sided angle of the jaw swelling, worsening. He saw his dentist two days ago after the swelling, but the dentist did not address the swelling, order any testing or start any treatments. Patient has not had any recent dental work. He denies any odynophagia, difficulty controlling secretions, throat swelling, or tongue swelling. Timing/Duration: abrupt onset, days (3) Severity: severe ENT Location: facial (left sided of the jaw in front of the ear) Prearrival Treatment: no prearrival treatment Modifying Factors: Worsens With: other (opening his mouth) Associated Symptoms: facial pain/swelling (left side of the jaw), jaw pain ( left side at the angle), No ear pain (R), No ear pain (L), No cough, No fever, No chills, No change in hearing, No dizziness, No drooling, No ear drainage, No headache, No hearing loss, No malaise, No motion sickness, No nasal congestion/ drainage, No epistaxis, No nasal foreign body, No neck pain, No poor fluid intake, No poor solids intake, No ringing of ears, No swollen glands, No sinus infection, No sore throat, No tooth pain, No difficulty swallowing, No voice change Allergies/Adverse Reactions: sulfamethoxazole [From Bactrim] Allergy (Verified 01/09/19 09:58) trimethoprim [From Bactrim] Allergy (Verified 09/22/17 16:24) Home Medications: Bethanechol Chloride [Urecholine] 50 mg PO TID 07/30/13 [History] Tamsulosin HCl 0.4 mg [Flomax 0.4 MG] 0.4 mg PO QHS 07/30/13 [History] Folic Acid 1 mg PO QHS 10/04/14 [History] Gabapentin 600 mg PO QHS 04/12/15 [History] Hx Tetanus, Diphtheria Vaccination/Date Given: No (UNKNOWN) Hx Influenza Vaccination/Date Given: No Hx Pneumococcal Vaccination/Date Given: Yes (2018) - Review of Systems Constitutional: No Fever, No Chills, No Fatigue, No Lethargy, No Malaise Eyes: No Discharge, No Eye Pain, No Vision Changes Ears, Nose, & Throat: No Ear Pain, No Nose Pain, No Nose Congestion, No Epistaxis, No Mouth Pain, No Mouth Swelling, No Throat Pain, No Painful Swallowing Respiratory: No Cough, No Dyspnea Cardiac: No Chest Pain, No Edema, No Palpitations Abdominal/Gastrointestinal: No Abdominal Pain, No Nausea, No Vomiting, No Hematochezia, No Melena Genitourinary Symptoms: No Dysuria, No Hematuria, No Flank Pain Musculoskeletal: No Back Pain, No Neck Pain Skin: No Pruritis, No Rash Neurological: No Focal Weakness, No Lethargy, No Parasthesia, No Tremors, No Vertigo Psychological: No Anxiety, No Emotional Lability Endocrine: No Polyuria, No Polydipsia Hematologic/Lymphatic: No Easy Bleeding, No Easy Bruising All Other Systems: Reviewed and Negative - Past Medical History Pertinent Past Medical History: Yes Neurological History: Peripheral Neuropathy ENT History: No Pertinent History Cardiac History: No Pertinent History Respiratory History: No Pertinent History Endocrine Medical History: No Pertinent History Musculoskeletal History: No Pertinent History GI Medical History: Colitis, Other History: Renal Disease, Other Psycho-Social History: No Pertinent History Male Reproductive Disorders: No Pertinent History Other Medical History: kidneys function at 33% - Past Surgical History Past Surgical History: Yes Neuro Surgical History: No Pertinent History Cardiac: No Pertinent History Respiratory: No Pertinent History Gastrointestinal: Colon Resection Genitourinary: No Pertinent History Musculoskeletal: Other Male Surgical History: No Pertinent History Other Surgical History: ileostomy, R rotator cuff,R knee surgery, colon resection x2 - Social History Smoking Status: Current every day smoker How long have you smoked: 60 years Exposure to second hand smoke: No Drug Use: none Patient Lives Alone: No - Nursing Vital Signs Nursing Vital Signs: Initial Vital Signs Temperature 97.7 F 01/09/19 09:46 Pulse Rate 59 L 01/09/19 09:46 Blood Pressure 106/52 01/09/19 09:46 O2 Sat by Pulse Oximetry 98 01/09/19 09:46 Pain Scale Pain Intensity 9 - Physical Exam General Appearance: no apparent distress Eye Exam: bilateral eye: normal inspection, PERRL, EOMI Ear Exam: left ear: other (swollen, enlarged and tender left parotid gland), bilateral ear: auricle normal, canal normal, TM normal Nasal Exam: normal inspection, No active bleeding, No dried blood Throat Exam: normal, pharynx normal, No dental tenderness, No excessive drooling , No mandibular swelling, No maxillary swelling, No pharynx swelling, No tongue swollen, No tonsillar swelling, No trismus, No uvula swelling Neck Exam: normal inspection, non-tender, supple, full range of motion, trachea midline, No JVD, No lymphadenopathy (R), No lymphadenopathy (L), No stiff neck Cardiovascular/Respiratory Exam: chest non-tender, normal breath sounds, regular rate/rhythm, heart sounds normal Abdominal Exam: non-tender, soft Neurologic Exam: alert, oriented x 3, cooperative, screwhead polisher II-XII nml as tested, normal mood/affect Skin Exam: normal color, warm, dry, No rash, No petechiae SpO2 Interpretation: normal O2 Delivery: Room Air - Course Nursing assessment & vital signs reviewed: Yes - CT Exams Maxillofacial Bones CT Interpretation: Other (per radiologist interpretation: Marked asymmetric enlargement/edema and inflammatory stranding seen associate of the left parotid gland which statistically more likely be postinflammatory or less likely postinfectious bronchitis. He more focal wanted to center focus containing mineralization seen within the superficial lobe is indeterminate but should be followup. No drainable collection/abscess is seen within the scope of this nondetailed evaluation. No acute abdomen I seen involving the left mandible proper. Eventually, MRI may be required to rule out underlying mass.) Ordered Tests: Active Orders 24 hr Category Date Time Status IV Insertion STAT Care 01/09/19 10:00 Active FACIAL BONES WO CONTRAST [CT] Stat Exams 01/09/19 09:54 Taken AMYLASE Stat Lab 01/09/19 10:20 Completed CBC W DIFF Stat Lab 01/09/19 10:10 Completed CMP Stat Lab 01/09/19 10:20 Completed Lactic Acid Stat Lab 01/09/19 10:01 Completed Medication Summary Discontinued Medications Generic Name Dose Route Start Last Admin Trade Name Freq PRN Reason Stop Dose Admin Furosemide 40 mg 01/09/19 10:27 01/09/19 11:01 Lasix 40 Mg/4 Ml IV 01/09/19 10:28 40 mg STAT ONE Administration Furosemide Confirm 01/09/19 10:56 Lasix 40 Mg/4 Ml Administered 01/09/19 10:57 Dose 40 mg .ROUTE .STK-MED ONE Sodium Chloride 1,000 mls @ 999 mls/hr 01/09/19 09:51 01/09/19 11:08 Sodium Chloride 0.9% 1000 Ml IV 01/09/19 10:51 Infused .Q1H1M STA Infusion Sodium Chloride Confirm 01/09/19 10:02 Sodium Chloride 0.9% 1000 Ml Administered 01/09/19 10:03 Dose 1,000 mls @ ud .ROUTE .STK-MED ONE Morphine Sulfate 4 mg 01/09/19 11:55 01/09/19 12:01 Morphine Sulfate 4 Mg Inj IV 01/09/19 11:56 4 mg STAT ONE Administration Morphine Sulfate Confirm 01/09/19 11:57 Morphine Sulfate 4 Mg Inj Administered 01/09/19 11:58 Dose 4 mg .ROUTE .STK-MED ONE Lab/Rad Data: Laboratory Result Diagrams 01/09/19 10:10 01/09/19 10:20 Laboratory Results 01/09/19 01/09/19 01/09/19 Range/Units 10:20 10:10 10:01 WBC 10.4 (4.0-10.5) K/mm3 RBC 4.34 (4.1-5.6) M/mm3 Hgb 13.3 (12.5-18.0) gm/dl Hct 39.8 L (42-50) % MCV 91.7 (78-100) fl MCH 30.6 (26-32) pg MCHC 33.4 (32-36) g/dl RDW 14.8 H (11.5-14.0) % Plt Count 184 (150-450) K/mm3 MPV 11.1 H (6-9.5) fl Gran % 81.8 H (36.0-66.0) % Eos # (Auto) 0.32 (0-0.5) Absolute Lymphs (auto) 0.53 L (1.0-4.6) Absolute Monos (auto) 1.00 (0.0-1.3) Lymphocytes % 5.1 L (24.0-44.0) % Monocytes % 9.6 (0.0-12.0) % Eosinophils % 3.1 (0.00-5.0) % Basophils % 0.4 (0.0-0.4) % Absolute Granulocytes 8.54 H (1.4-6.9) Basophils # 0.04 (0-0.4) Sodium 140 (137-145) mmol/L Potassium 4.2 (3.5-5.1) mmol/L Chloride 108 H (98-107) mmol/L Carbon Dioxide 21 L (22-30) mmol/L Anion Gap 16.1 H (5-15) MEQ/L BUN 26 H (9-20) mg/dL Creatinine 1.52 H (0.66-1.25) mg/dL Estimated GFR 47.1 ML/MIN Glucose 98 (74-106) mg/dL Lactic Acid 1.1 (0.4-2.0) Calcium 9.5 (8.4-10.2) mg/dL Total Bilirubin 0.60 (0.2-1.3) mg/dL AST 32 (17-59) U/L ALT 16 (0-50) U/L Alkaline Phosphatase 54 (38-126) U/L Serum Total Protein 7.7 (6.3-8.2) g/dL Albumin 4.5 (3.5-5.0) g/dL Amylase 131 H (30-110) U/L Slides for Path Review YES - Progress Progress: unchanged Progress Note: 01/09/19 10:28 Patient has no difficulty breathing or swallowing or any neck pain. 01/09/19 11:45 Patient is having pain to the left parotid gland. Family member will be able to drive him home. 01/09/19 12:36 Patient's pain is better controlled and patient denies any dyspnea. Counseled pt/family regarding: lab results, diagnosis, need for follow-up, rad results - Departure Departure Disposition: Home Clinical Impression: Acute parotitis Renal failure, chronic Qualifiers: Chronic kidney disease stage: stage 3 (moderate) Qualified Code(s): N18.3 - Chronic kidney disease, stage 3 (moderate) Condition: Good Critical Care Time: No Referrals: NINO TORRES MD [Primary Care Provider] - 01/10/19 BRYAN ABDI MD [CONSULTING PHYSICIAN] - 01/10/19 (ENT specialist for your reference) Instructions: Parotitis, Chronic Kidney Disease (DC) Additional Instructions: It is important to follow-up with your doctor or the ENT referral to check response to your Parotid gland inflammation. Multiple things can cause it, including mumps, stone blockage or an unseen mass. Return if pain is worse, difficulty opening your jaw, difficulty swallowing, any shortness of breath or problems breathing or any other concerning signs or symptoms that were not present at today's emergency department visit for immediate reevaluation in the emergency department. You may eventually need an MRI to figure out what is causing the swelling and inflammation to your left parotid gland. Prescriptions: Hydrocodone/APAP 5-325 Tab^^^ [[place] 5-325 Tablet^^^] 1 tab PO Q6HPRN PRN #12 tablet MDD 6 PRN Reason: Pain Amoxicillin/Potassium Clav [Augmentin 875-125 Tablet] 1 each PO BID #14 tablet
[2019-01-09] MEDS ORDERED: Sodium Chloride 0.9% 1000 ML 1,000 ML ONE (10:02)
[2019-01-09 10:24] LABS: Absolute Neutrophil Ct (ANC) 8.54 (1.4-6.9); BASOPHIL % 0.4 % (0.0-0.4); Basophil (Absolute #) 0.04 (0-0.4); Eosinophil % 3.1 % (0.00-5.0); Eosinophil (Absolute #) 0.32 (0-0.5); Hematocrit 39.8 % (42-50); Hemoglobin 13.3 gm/dl (12.5-18.0); Lymphocyte (Absolute #) 0.53 (1.0-4.6); Lymphocytes % 5.1 % (24.0-44.0); Mean Cell Volume 91.7 fl (78-100); Mean Corpuscular Hemoglobin 30.6 pg (26-32); Mean Corpuscular Hgb Concent. 33.4 g/dl (32-36); Mean Platelet Volume 11.1 fl (6-9.5); Monocytes % 9.6 % (0.0-12.0); Neutrophil % 81.8 % (36.0-66.0); Platelet Count 184 K/mm3 (150-450); Red Blood Count 4.34 M/mm3 (4.1-5.6); Red Cell Distribution Width 14.8 % (11.5-14.0); White Blood Count 10.4 K/mm3 (4.0-10.5)
[2019-01-09] MEDS ORDERED: Lasix 40 MG/4 ML IV ONE (10:27)
[2019-01-09 10:36] LABS: ALBUMIN 4.5 g/dL (3.5-5.0); ANION GAP 16.1 MEQ/L (5-15); BILIRUBIN,TOTAL 0.6 mg/dL (0.2-1.3); Calcium 9.5 mg/dL (8.4-10.2); Creatinine 1 1.52 mg/dL (0.66-1.25); Potassium 4.2 mmol/L (3.5-5.1); Total Protein 7.7 g/dL (6.3-8.2)
[2019-01-09] MEDS ORDERED: Lasix 40 MG/4 ML ONE (10:56)
[2019-01-09 11:01] LABS: Slide Review 1 YES
[2019-01-09] MEDS ORDERED: MORPHINE SULFATE 4 MG INJ IV ONE (11:55)
[2019-01-09] MEDS ORDERED: MORPHINE SULFATE 4 MG INJ ONE (11:57)
[2019-01-09 12:06] VITALS: BP 139/71; PULSE 60; O2SAT 99
--- NOTE | 2019-01-09 20:52 | XRAY ---
Indication: Left mandible pain/swelling. Multiple contiguous axial images obtained through the facial bones without contrast as ordered. Comparison: None A few bilateral dental amalgams produces beam artifact. Left parotid gland is enlarged with stranding favoring parotiditis. A few small bilateral cervical and submandibular lymph nodes probably reactive. No suspicious air or fluid collection. Submandibular glands are bilaterally symmetric. Elsewhere no acute fracture, suspicious bony lesions, or osseous destructive process. Orbits including roof, rodriguez, and floors intact. Minimal degenerative changes of the visualized cervical spine. Paranasal sinuses and nasal passages are clear. Mildly septal deviation to the left. Remaining visualized noncontrasted soft tissues including globes and base of the brain unremarkable. Impression: 1. Left parotiditis. 2. Incidental minimal degenerative changes of the cervical spine and mild nasal septal deviation. Comment: Preliminary interpretation was made by [facility]. No critical discrepancy. CTDI 59.47
== END 2019-01-09 13:02 | disposition home or self-care (01) ==
LOC: ED 09:34
DX: K11.20 Sialoadenitis, unspecified (principal); N18.3 Chronic kidney disease, stage 3 (moderate)
CPT/HCPCS: 36000; 36415; 70486; 80053; 82150; 83605; 85025; 86735; 96360; 96374; 96375; 99284; J1940; J2270

== ENCOUNTER 2020-10-29 15:40 | Inpatient (IN) | payer MEDICARE, BC ==
[2020-10-29] MEDS ORDERED: NON-FORMULARY ITEM (Hydrocodone/Apap 5-325 Tab^^^ 1 TAB) PO PRN (17:28)
[2020-10-29] MEDS ORDERED: NORCO 5/325 MG PO PRN (17:33)
[2020-10-29] MEDS: Lactated Ringers 1,000 ML IV SCH (18:05)
[2020-10-29 18:12] LABS: INR 0.92 (0.8-3.0); PROTIME 10.9 SECONDS (9.4-12.5)
[2020-10-29 18:14] LABS: Hematocrit 42.5 % (42-50); Hemoglobin 14.3 gm/dl (12.5-18.0); Mean Cell Volume 88.2 fl (78-100); Mean Corpuscular Hemoglobin 29.7 pg (26-32); Mean Corpuscular Hgb Concent. 33.6 g/dl (32-36); Mean Platelet Volume 11.9 fl (7.5-11.0); PTT 25.1 SECONDS (25.1-36.5); Platelet Count 260 K/mm3 (150-450); Red Blood Count 4.82 M/mm3 (4.1-5.6); Red Cell Distribution Width 13.7 % (11.5-14.0); White Blood Count 7.6 K/mm3 (4.0-10.5)
[2020-10-29 18:28] LABS: ALBUMIN 4.9 g/dL (3.5-5.0); ANION GAP 21.3 MEQ/L (5-15); BILIRUBIN,TOTAL 0.2 mg/dL (0.2-1.3); Calcium 9.4 mg/dL (8.4-10.2); Creatinine 1 4.44 mg/dL (0.66-1.25); EST GLOMERULAR FILTRATION RATE 13.6 ML/MIN
[2020-10-29] MEDS: NEURONTIN 300 MG PO SCH (21:31)
[2020-10-29] MEDS: FOLATE 1 MG PO SCH (21:31)
[2020-10-29] MEDS: NON-FORMULARY ITEM PO SCH (21:31)
[2020-10-29] MEDS: Flomax 0.4 MG PO SCH (21:31)
[2020-10-29] MEDS: QUESTRAN Light 4 GM Packet PO SCH (21:32)
[2020-10-29] MEDS ORDERED: BETHANECHOL CHLORIDE 50 MG PO SCH (22:00)
[2020-10-30 00:11] LABS: Basophil 1 % (0.0-1.0); Eosinophil 2 % (0.00-3.0); Lymphocytes 13 % (24-44); Monocyte 2 % (0.0-12.0); Neutrophils 82 % (36.-66.); Platelet Estimate NORMAL (NORMAL); Total Cells Counted 100
[2020-10-30 05:25] LABS: Absolute Neutrophil Ct (ANC) 4.74 (1.4-6.9); BASOPHIL % 0.2 % (0.0-0.4); Basophil (Absolute #) 0.01 (0-0.4); Eosinophil % 2.8 % (0.00-5.0); Eosinophil (Absolute #) 0.18 (0-0.5); Hematocrit 36.2 % (42-50); Hemoglobin 11.9 gm/dl (12.5-18.0); Lymphocyte (Absolute #) 0.67 (1.0-4.6); Lymphocytes % 10.3 % (24.0-44.0); Mean Cell Volume 88.9 fl (78-100); Mean Corpuscular Hemoglobin 29.2 pg (26-32); Mean Corpuscular Hgb Concent. 32.9 g/dl (32-36); Mean Platelet Volume 11.2 fl (7.5-11.0); Monocyte (Absolute #) 0.93 (0.0-1.3); Monocytes % 14.2 % (0.0-12.0); Neutrophil % 72.5 % (36.0-66.0); Platelet Count 214 K/mm3 (150-450); Red Blood Count 4.07 M/mm3 (4.1-5.6); Red Cell Distribution Width 13.6 % (11.5-14.0); White Blood Count 6.5 K/mm3 (4.0-10.5)
[2020-10-30] MEDS: Lactated Ringers 1,000 ML IV SCH (05:47)
[2020-10-30 06:05] LABS: ALBUMIN 3.8 g/dL (3.5-5.0); ANION GAP 15.9 MEQ/L (5-15); BILIRUBIN,TOTAL 0.2 mg/dL (0.2-1.3); Calcium 8.8 mg/dL (8.4-10.2); Creatinine 1 3.64 mg/dL (0.66-1.25); EST GLOMERULAR FILTRATION RATE 17.1 ML/MIN; Total Protein 6.6 g/dL (6.3-8.2)
--- NOTE | 2020-10-30 09:10 | XRAY ---
Indication: Short of breath. Comparison: September 21, 2017. Portable chest remains hyperinflated again with a few incidental tiny calcified granulomas. No focal infiltrate, consolidation, or large effusion. Heart not enlarged. Bony thorax intact again with mild osteopenia, degenerative changes, and distal right clavicle resection. Impression: Nonacute hyperinflated chest with chronic features.
[2020-10-30] MEDS: NON-FORMULARY ITEM PO SCH ×3 (10:01→21:18)
[2020-10-30] MEDS: ENOXAPARIN SODIUM SQ SCH (10:01)
[2020-10-30] MEDS: QUESTRAN Light 4 GM Packet PO SCH ×2 (10:02→21:18)
[2020-10-30] MEDS ORDERED: SODIUM BICARBONATE 50 MEQ/50 ML ABBOJECT IV ONE (18:34)
[2020-10-30] MEDS ORDERED: Dextrose 5%/Water IV Soln. 1000 ML 1,000 ML IV ONE (18:35)
[2020-10-30] MEDS ORDERED: Sodium Bicarbonate 50 MEQ/50 ML VIAL ONE (18:36)
--- NOTE | 2020-10-30 18:47 | PCM.HP ---
History of Present Illness - Chief Complaint Chief Complaint: shortness of breath, abnormal renal function History of Present Illness: is a 80 year old male.who is COVID positive started having shortness of breath and found to have sudden rise in his creatinine - Review of Systems Constitutional: No Fever, No Chills Eyes: No Symptoms Ears, Nose, & Throat: No Symptoms Respiratory: Orthopnea, Short Of Breath, No Cough Cardiac: Edema, No Chest Pain, No Syncope Abdominal/Gastrointestinal: No Abdominal Pain, No Nausea, No Vomiting, No Diarrhea Genitourinary Symptoms: No Dysuria Musculoskeletal: No Back Pain, No Neck Pain Skin: No Rash Neurological: No Dizziness, No Focal Weakness, No Sensory Changes Psychological: No Symptoms Endocrine: No Symptoms Hematologic/Lymphatic: No Symptoms Immunological/Allergic: No Symptoms Medications & Allergies Home Medications: Home Medication List Bethanechol Chloride [Urecholine] 50 mg PO TID 07/30/13 [History Confirmed 10/29/20] Tamsulosin HCl 0.4 mg [Flomax 0.4 MG] 0.4 mg PO QHS 07/30/13 [History Confirmed 10/29/20] Folic Acid 1 mg PO QHS 10/04/14 [History Confirmed 10/29/20] Gabapentin 600 mg PO QHS 04/12/15 [History Confirmed 10/29/20] Hydrocodone/APAP 5-325 Tab^^^ [Erwin 5-325 Tablet^^^] 1 tab PO Q6HPRN PRN #12 tablet MDD 6 01/09/19 [Rx Confirmed 10/29/20] Cholestyramine Light 4 gm [QUESTRAN Light 4 GM Packet] 2 gm PO BID 10/29/20 [History Confirmed 10/29/20] Allergies/Adverse Reactions: Allergies Allergy/AdvReac Type Severity Reaction Status Date / Time sulfamethoxazole Allergy Verified 01/09/19 09:58 [From Bactrim] trimethoprim [From Bactrim] Allergy Verified 09/22/17 16:24 - Past Medical History Past Medical History: Yes Neurological History: No Pertinent History, Peripheral Neuropathy ENT History: No Pertinent History Cardiac History: No Pertinent History Respiratory History: No Pertinent History Endocrine Medical History: No Pertinent History Musculoskelatal History: No Pertinent History GI Medical History: Colitis, Other History: Renal Disease, Other Pyscho-Social History: No Pertinent History Male Reproductive Disorders: No Pertinent History Comment: kidneys function at 33%. 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 - Past Surgical History Past Surgical History: Yes Neuro Surgical History: No Pertinent History Cardiac History: No Pertinent History Respiratory Surgery: No Pertinent History GI Surgical History: Colon Resection Genitourinary Surgical Hx: No Pertinent History Musculskeletal Surgical Hx: Other Male Surgical History: No Pertinent History Other Surgical History: ileostomy, R rotator cuff,R knee surgery, colon resection x2 - Social History Smoking Status: Current every day smoker How long have you smoked: 60 years Exposure to second hand smoke: No Alcohol: Rarely Drug Use: none - Physical Exam Vital Signs: Vital Signs - 24 hr Temp Pulse Resp BP Pulse Ox 10/30/20 18:00 20 10/30/20 17:55 70 16 97 10/30/20 16:15 97.9 F 60 16 92/52 95 10/30/20 16:00 20 10/30/20 14:00 18 10/30/20 13:44 61 16 97 10/30/20 12:18 97.7 F 68 18 98/54 96 10/30/20 12:00 18 10/30/20 10:00 18 10/30/20 09:54 104 H 18 95 10/30/20 07:46 97.6 F 60 16 101/55 97 10/30/20 07:41 16 10/30/20 07:05 94 L 10/30/20 06:00 55 L 16 94 L 10/30/20 04:00 97.8 F 60 18 119/53 95 10/30/20 02:00 60 18 95 10/29/20 23:27 98.7 F 70 16 100/53 96 10/29/20 22:00 64 16 94 L 10/29/20 20:00 72 16 101/59 96 10/29/20 19:54 95 General Appearance: no apparent distress, alert Neurologic Exam: alert, oriented x 3, cooperative, normal mood/affect, nml cerebellar function, nml station & gait, sensation nml, No motor deficits Eye Exam: PERRL/EOMI, eyes nml inspection Ears, Nose, Throat Exam: normal ENT inspection, TMs normal, pharynx normal, moist mucous membranes Neck Exam: normal inspection, non-tender, supple, full range of motion Respiratory Exam: diminished breath sounds, crackles/rales, rhonchi, No respiratory distress Cardiovascular Exam: regular rate/rhythm, normal heart sounds, normal peripheral pulses Gastrointestinal/Abdomen Exam: soft, normal bowel sounds, No tenderness, No mass Back Exam: normal inspection, normal range of motion, No CVA tenderness, No vertebral tenderness Extremity Exam: normal inspection, normal range of motion, pelvis stable Skin Exam: normal color, warm, dry, No rash Lymphatic Exam: No adenopathy Results - Labs Lab/Micro Results: Lab Results-Last 24 Hours 10/29/20 10/29/20 10/29/20 Range/Units 17:48 17:49 17:49 WBC 7.6 (4.0-10.5) K/mm3 RBC 4.82 (4.1-5.6) M/mm3 Hgb 14.3 (12.5-18.0) gm/dl Hct 42.5 (42-50) % MCV 88.2 (78-100) fl MCH 29.7 (26-32) pg MCHC 33.6 (32-36) g/dl RDW 13.7 (11.5-14.0) % Plt Count 260 (150-450) K/mm3 MPV 11.9 H (7.5-11.0) fl Gran % (36.0-66.0) % Eos # (Auto) (0-0.5) Absolute Lymphs (auto) (1.0-4.6) Absolute Monos (auto) (0.0-1.3) Lymphocytes % (24.0-44.0) % Monocytes % (0.0-12.0) % Eosinophils % (0.00-5.0) % Basophils % (0.0-0.4) % Absolute Granulocytes (1.4-6.9) Segmented Neutrophils 82 H (36.-66.) % Lymphocytes (Manual) 13 L (24-44) % Monocytes (Manual) 2 (0.0-12.0) % Eosinophils (Manual) 2 (0.00-3.0) % Basophils (Manual) 1 (0.0-1.0) % Basophils # (0-0.4) Platelet Estimate NORMAL (NORMAL) RBC Morphology NORMAL PT (9.4-12.5) SECONDS INR (0.8-3.0) APTT (25.1-36.5) SECONDS D-Dimer (215-500) ng/mL Sodium 133 L (137-145) mmol/L Potassium 5.0 (3.5-5.1) mmol/L Chloride 103 (98-107) mmol/L Carbon Dioxide 13 L* (22-30) mmol/L Anion Gap 21.3 H (5-15) MEQ/L BUN 79 H (9-20) mg/dL Creatinine 4.44 H (0.66-1.25) mg/dL Estimated GFR 13.6 ML/MIN Glucose 114 H (74-106) mg/dL Hemoglobin A1c (4.5-6.0) % Calcium 9.4 (8.4-10.2) mg/dL Total Bilirubin 0.20 (0.2-1.3) mg/dL AST 40 (17-59) U/L ALT 22 (0-50) U/L Alkaline Phosphatase 73 (38-126) U/L Troponin I 0.082 H* (0.000-0.034) ng/mL NT-Pro-B Natriuret Pep 7130 H (0-1800) pg/mL Serum Total Protein 8.0 (6.3-8.2) g/dL Albumin 4.9 (3.5-5.0) g/dL SARS-CoV-2 (PCR) (NEGATIVE) 10/29/20 10/29/20 10/30/20 Range/Units 17:49 19:00 04:43 WBC 6.5 (4.0-10.5) K/mm3 RBC 4.07 L (4.1-5.6) M/mm3 Hgb 11.9 L (12.5-18.0) gm/dl Hct 36.2 L (42-50) % MCV 88.9 (78-100) fl MCH 29.2 (26-32) pg MCHC 32.9 (32-36) g/dl RDW 13.6 (11.5-14.0) % Plt Count 214 (150-450) K/mm3 MPV 11.2 H (7.5-11.0) fl Gran % 72.5 H (36.0-66.0) % Eos # (Auto) 0.18 (0-0.5) Absolute Lymphs (auto) 0.67 L (1.0-4.6) Absolute Monos (auto) 0.93 (0.0-1.3) Lymphocytes % 10.3 L (24.0-44.0) % Monocytes % 14.2 H (0.0-12.0) % Eosinophils % 2.8 (0.00-5.0) % Basophils % 0.2 (0.0-0.4) % Absolute Granulocytes 4.74 (1.4-6.9) Segmented Neutrophils (36.-66.) % Lymphocytes (Manual) (24-44) % Monocytes (Manual) (0.0-12.0) % Eosinophils (Manual) (0.00-3.0) % Basophils (Manual) (0.0-1.0) % Basophils # 0.01 (0-0.4) Platelet Estimate (NORMAL) RBC Morphology PT 10.9 (9.4-12.5) SECONDS INR 0.92 (0.8-3.0) APTT 25.1 (25.1-36.5) SECONDS D-Dimer 3151 H* (215-500) ng/mL Sodium (137-145) mmol/L Potassium (3.5-5.1) mmol/L Chloride (98-107) mmol/L Carbon Dioxide (22-30) mmol/L Anion Gap (5-15) MEQ/L BUN (9-20) mg/dL Creatinine (0.66-1.25) mg/dL Estimated GFR ML/MIN Glucose (74-106) mg/dL Hemoglobin A1c (4.5-6.0) % Calcium (8.4-10.2) mg/dL Total Bilirubin (0.2-1.3) mg/dL AST (17-59) U/L ALT (0-50) U/L Alkaline Phosphatase (38-126) U/L Troponin I (0.000-0.034) ng/mL NT-Pro-B Natriuret Pep (0-1800) pg/mL Serum Total Protein (6.3-8.2) g/dL Albumin (3.5-5.0) g/dL SARS-CoV-2 (PCR) POSITIVE A (NEGATIVE) 10/30/20 10/30/20 10/30/20 Range/Units 04:43 05:00 14:14 WBC (4.0-10.5) K/mm3 RBC (4.1-5.6) M/mm3 Hgb (12.5-18.0) gm/dl Hct (42-50) % MCV (78-100) fl MCH (26-32) pg MCHC (32-36) g/dl RDW (11.5-14.0) % Plt Count (150-450) K/mm3 MPV (7.5-11.0) fl Gran % (36.0-66.0) % Eos # (Auto) (0-0.5) Absolute Lymphs (auto) (1.0-4.6) Absolute Monos (auto) (0.0-1.3) Lymphocytes % (24.0-44.0) % Monocytes % (0.0-12.0) % Eosinophils % (0.00-5.0) % Basophils % (0.0-0.4) % Absolute Granulocytes (1.4-6.9) Segmented Neutrophils (36.-66.) % Lymphocytes (Manual) (24-44) % Monocytes (Manual) (0.0-12.0) % Eosinophils (Manual) (0.00-3.0) % Basophils (Manual) (0.0-1.0) % Basophils # (0-0.4) Platelet Estimate (NORMAL) RBC Morphology PT (9.4-12.5) SECONDS INR (0.8-3.0) APTT (25.1-36.5) SECONDS D-Dimer (215-500) ng/mL Sodium 134 L (137-145) mmol/L Potassium 5.0 (3.5-5.1) mmol/L Chloride 109 H (98-107) mmol/L Carbon Dioxide 14 L* (22-30) mmol/L Anion Gap 15.9 H (5-15) MEQ/L BUN 75 H (9-20) mg/dL Creatinine 3.64 H (0.66-1.25) mg/dL Estimated GFR 17.1 ML/MIN Glucose 77 (74-106) mg/dL Hemoglobin A1c 5.79 (4.5-6.0) % Calcium 8.8 (8.4-10.2) mg/dL Total Bilirubin 0.20 (0.2-1.3) mg/dL AST 30 (17-59) U/L ALT 17 (0-50) U/L Alkaline Phosphatase 69 (38-126) U/L Troponin I 0.094 H* (0.000-0.034) ng/mL NT-Pro-B Natriuret Pep (0-1800) pg/mL Serum Total Protein 6.6 (6.3-8.2) g/dL Albumin 3.8 (3.5-5.0) g/dL SARS-CoV-2 (PCR) (NEGATIVE) Accuchecks Date 10/30/20 Date 10/30/20 - Radiology Impressions Radiology Exams & Impressions: Radiology Procedures Category Date Time Status BLADDER [US] Routine Exams 10/31/20 08:00 Ordered CHEST 1 VIEW (PORTABLE) Routine Exams 10/29/20 22:30 Completed Assessment/Plan (1) Acute kidney injury due to COVID-19 Current Visit: Yes Status: Acute Assessment & Plan: Chief Complaint Diagnosis shortness of breath, abnormal renal function Allergies Allergy/AdvReac Type Severity Reaction Status Date / Time sulfamethoxazole Allergy Verified 01/09/19 09:58 [From Bactrim] trimethoprim [From Bactrim] Allergy Verified 09/22/17 16:24 Vital Signs (Last 24 hours) Temp Pulse Resp BP Pulse Ox 10/30/20 18:00 20 10/30/20 17:55 70 16 97 10/30/20 16:15 97.9 F 60 16 92/52 95 10/30/20 16:00 20 10/30/20 14:00 18 10/30/20 13:44 61 16 97 10/30/20 12:18 97.7 F 68 18 98/54 96 10/30/20 12:00 18 10/30/20 10:00 18 10/30/20 09:54 104 H 18 95 10/30/20 07:46 97.6 F 60 16 101/55 97 10/30/20 07:41 16 10/30/20 07:05 94 L 10/30/20 06:00 55 L 16 94 L 10/30/20 04:00 97.8 F 60 18 119/53 95 10/30/20 02:00 60 18 95 10/29/20 23:27 98.7 F 70 16 100/53 96 10/29/20 22:00 64 16 94 L 10/29/20 20:00 72 16 101/59 96 10/29/20 19:54 95 Home Medications Medication Instructions Recorded Confirmed Last Taken Type Cholestyramine Light 4 gm 2 gm PO BID 10/29/20 10/29/20 Unknown History [QUESTRAN Light 4 GM Packet] Current Medications Generic Name Dose Route Start Last Admin Trade Name Freq PRN Reason Stop Dose Admin Hydrocodone Bitart/Acetaminophen 1 tab 10/29/20 17:33 Erwin 5/325 Mg PO 11/03/20 17:32 Q6HPRN PRN PAIN Cholestyramine Resin 2 gm 10/29/20 22:00 10/30/20 10:02 Questran Light 4 Gm Packet PO 11/28/20 21:59 2 gm BID TUNG Administration Enoxaparin Sodium 40 mg 10/30/20 10:00 10/30/20 10:01 Enoxaparin Sodium SQ 11/29/20 09:59 40 mg DAILY TUNG Administration Folic Acid 1 mg 10/29/20 22:00 10/29/20 21:31 Folate 1 Mg PO 11/28/20 21:59 1 mg QHS TUNG Administration Gabapentin 600 mg 10/29/20 22:00 10/29/20 21:31 Neurontin 300 Mg PO 11/28/20 21:59 600 mg QHS TUNG Administration Sodium Bicarbonate 150 meq/ 1,150 mls @ 100 mls/hr 10/30/20 18:30 Dextrose IV 11/29/20 18:29 .[id number] TUNG Bethanechol 50mg 1 each 10/29/20 22:00 10/30/20 14:27 Tablet PO 11/28/20 21:59 1 each TID TUNG Administration Tamsulosin HCl 0.4 mg 10/29/20 22:00 10/29/20 21:31 Flomax 0.4 Mg PO 11/28/20 21:59 0.4 mg QHS TUNG Administration Discontinued Medications Generic Name Dose Route Start Last Admin Trade Name Freq PRN Reason Stop Dose Admin Lactated Ringer's 1,000 mls @ 75 mls/hr 10/29/20 18:00 10/30/20 05:47 Lactated Ringers IV 11/28/20 17:59 75 mls/hr .[id number] TUNG Administration Dextrose Confirm 10/30/20 18:35 Dextrose 5%/Water Iv Soln. 1000 Ml Administered 10/30/20 18:36 Dose 1,000 mls @ ud IV .STK-MED ONE Non-Formulary Medication 50 mg 10/29/20 22:00 Bethanechol Chloride [Urecholine] PO 11/28/20 21:59 TID TUNG Sodium Bicarbonate Confirm 10/30/20 18:34 Sodium Bicarbonate 50 Meq/50 Ml Abboject Administered 10/30/20 18:35 Dose 100 meq IV .STK-MED ONE Sodium Bicarbonate Confirm 10/30/20 18:36 Sodium Bicarbonate 50 Meq/50 Ml Vial Administered 10/30/20 18:37 Dose 50 meq .ROUTE .STK-MED ONE Intake & Output (Last 24 hours) 10/28/20 10/29/20 10/30/20 10/31/20 11:59 11:59 11:59 11:59 Intake Total 1163 2121 Output Total 525 650 Balance 638 1471 Weight 61.1 kg Laboratory Results (Last 24 hours) 10/30/20 10/30/20 10/30/20 14:14 05:00 04:43 WBC RBC Hgb Hct MCV MCH MCHC RDW Plt Count MPV Gran % Eos # (Auto) Absolute Lymphs (auto) Absolute Monos (auto) Lymphocytes % Monocytes % Eosinophils % Basophils % Absolute Granulocytes Segmented Neutrophils Lymphocytes (Manual) Monocytes (Manual) Eosinophils (Manual) Basophils (Manual) Basophils # Platelet Estimate RBC Morphology PT INR APTT D-Dimer Sodium 134 L Potassium 5.0 Chloride 109 H Carbon Dioxide 14 L* Anion Gap 15.9 H BUN 75 H Creatinine 3.64 H Estimated GFR 17.1 Glucose 77 Hemoglobin A1c 5.79 Calcium 8.8 Total Bilirubin 0.20 AST 30 ALT 17 Alkaline Phosphatase 69 Troponin I 0.094 H* NT-Pro-B Natriuret Pep Serum Total Protein 6.6 Albumin 3.8 SARS-CoV-2 (PCR) 10/30/20 10/29/20 10/29/20 04:43 19:00 17:49 WBC 6.5 RBC 4.07 L Hgb 11.9 L Hct 36.2 L MCV 88.9 MCH 29.2 MCHC 32.9 RDW 13.6 Plt Count 214 MPV 11.2 H Gran % 72.5 H Eos # (Auto) 0.18 Absolute Lymphs (auto) 0.67 L Absolute Monos (auto) 0.93 Lymphocytes % 10.3 L Monocytes % 14.2 H Eosinophils % 2.8 Basophils % 0.2 Absolute Granulocytes 4.74 Segmented Neutrophils Lymphocytes (Manual) Monocytes (Manual) Eosinophils (Manual) Basophils (Manual) Basophils # 0.01 Platelet Estimate RBC Morphology PT 10.9 INR 0.92 APTT 25.1 D-Dimer 3151 H* Sodium Potassium Chloride Carbon Dioxide Anion Gap BUN Creatinine Estimated GFR Glucose Hemoglobin A1c Calcium Total Bilirubin AST ALT Alkaline Phosphatase Troponin I NT-Pro-B Natriuret Pep Serum Total Protein Albumin SARS-CoV-2 (PCR) POSITIVE A 10/29/20 10/29/20 10/29/20 17:49 17:49 17:48 WBC 7.6 RBC 4.82 Hgb 14.3 Hct 42.5 MCV 88.2 MCH 29.7 MCHC 33.6 RDW 13.7 Plt Count 260 MPV 11.9 H Gran % Eos # (Auto) Absolute Lymphs (auto) Absolute Monos (auto) Lymphocytes % Monocytes % Eosinophils % Basophils % Absolute Granulocytes Segmented Neutrophils 82 H Lymphocytes (Manual) 13 L Monocytes (Manual) 2 Eosinophils (Manual) 2 Basophils (Manual) 1 Basophils # Platelet Estimate NORMAL RBC Morphology NORMAL PT INR APTT D-Dimer Sodium 133 L Potassium 5.0 Chloride 103 Carbon Dioxide 13 L* Anion Gap 21.3 H BUN 79 H Creatinine 4.44 H Estimated GFR 13.6 Glucose 114 H Hemoglobin A1c Calcium 9.4 Total Bilirubin 0.20 AST 40 ALT 22 Alkaline Phosphatase 73 Troponin I 0.082 H* NT-Pro-B Natriuret Pep 7130 H Serum Total Protein 8.0 Albumin 4.9 SARS-CoV-2 (PCR) Orders (Last 24 hours) Category Date Time Status Miscellaneous Nursing Order ROUTINE Care 10/30/20 13:06 Active Consult Nephrology ROUTINE Cons 10/29/20 20:36 Completed BLADDER [US] Routine Exams 10/31/20 08:00 Ordered CHEST 1 VIEW (PORTABLE) Routine Exams 10/29/20 22:30 Completed CBC AM.LAB Lab 10/31/20 04:00 Ordered CBC AM.LAB Lab 11/01/20 04:00 Ordered CBC AM.LAB Lab 11/02/20 04:00 Ordered CBC W DIFF AM.LAB Lab 10/30/20 04:43 Completed CBC W DIFF Routine Lab 10/29/20 17:49 Completed CMP AM.LAB Lab 10/30/20 04:43 Completed CMP AM.LAB Lab 10/31/20 04:00 Ordered CMP AM.LAB Lab 11/01/20 04:00 Ordered CMP AM.LAB Lab 11/02/20 04:00 Ordered CMP Routine Lab 10/29/20 17:49 Completed D-DIMER QUANTITATIVE AM.LAB Lab 10/31/20 04:00 Ordered D-DIMER QUANTITATIVE Routine Lab 10/29/20 17:49 Completed HEMOGLOBIN A1C Urgent Lab 10/30/20 05:00 Completed MAG [MAGNESIUM] AM.LAB Lab 10/31/20 04:00 Ordered MAG [MAGNESIUM] AM.LAB Lab 11/01/20 04:00 Ordered MAG [MAGNESIUM] AM.LAB Lab 11/02/20 04:00 Ordered Manual Differential NC Routine Lab 10/29/20 17:49 Completed NT PRO BNP Routine Lab 10/29/20 17:49 Completed PROTIME WITH INR Routine Lab 10/29/20 17:49 Completed PTT Routine Lab 10/29/20 17:49 Completed SARS-CoV-2 Xpert Express Routine Lab 10/29/20 19:00 Completed TROPONIN Stat Lab 10/29/20 17:48 Completed TROPONIN Stat Lab 10/30/20 14:14 Completed Bethanechol Chloride [Urecholine] Med 10/29/20 22:00 Discontinued 50 mg PO TID Cholestyramine Light 4 gm [QUESTRAN Light 4 GM Med 10/29/20 22:00 Active Packet] 2 gm PO BID D5w 1000 ml [Dextrose 5%/Water IV Soln. 1000 ML] 1,000 Med 10/30/20 18:30 Ordered ml Sodium Bicarbonate 50Meq Vial* [Sodium Bicarbonate 50 MEQ/50 ML VIAL] 150 meq IV 100 mls/hr D5w 1000 ml [Dextrose 5%/Water IV Soln. 1000 ML] 1,000 Med 10/30/20 18:35 Discontinued ml IV UD Enoxaparin Sodium [Enoxaparin Sodium] Med 10/30/20 10:00 Active 40 mg SQ DAILY Folic Acid 1 mg [Folate 1 mg] Med 10/29/20 22:00 Active 1 mg PO QHS Gabapentin 300 mg [Neurontin 300 mg] Med 10/29/20 22:00 Active 600 mg PO QHS Non-Formulary Drug [Non-Formulary Item] Med 10/29/20 22:00 Active 1 each PO TID Ringers Solution,Lactated [Lactated Ringers] 1,000 ml Med 10/29/20 18:00 Discontinued IV 75 mls/hr Sodium Bicarbonate 50 Meq Abb* [Sodium Bicarbonate 50 Med 10/30/20 18:34 Discontinued Meq/50 ml Abboject] 100 meq IV .STK-MED ONE Sodium Bicarbonate 50Meq Vial* [Sodium Bicarbonate 50 Med 10/30/20 18:36 Discontinued MEQ/50 ML VIAL] 50 meq .ROUTE .STK-MED ONE Tamsulosin HCl 0.4 mg [Flomax 0.4 MG] Med 10/29/20 22:00 Active 0.4 mg PO QHS Patient Care Notes (Last 24 hours) 10/30/20 09:44 Nursing Note by Yu Gonsales CALLED DR GUAJARDO'S OFFICE TODAY @ [id number], SPOKE WITH CRYSTAL. SHE STATED THAT DR ARAGON IS COVERING FOR DR GUAJARDO. SHE TOOK ALL THE CONSULT INFORMATION AND SOMEONE WILL BE CALLING US BACK. Initialized on 10/30/20 09:44 - END OF NOTE 10/29/20 20:19 Nursing Note by Sonam Sommer Called and talked to Dr Allred regarding pt's labs. Dr Allred wishes Dr Aragon or Dr Guajardo to be consulted d/t BUN and creatinine values. Called Dr Guajardo's office since pt states he sees Dr Guajardo. Talked to after hours answering services for Dr Guajardo and they paged Dr Aragon who is information technology internship and tried to reach his cell. Dr Aragon did not answer so answering service left a message. Initialized on 10/29/20 20:19 - END OF NOTE Code(s): U07.1 - COVID-19; N17.9 - ACUTE KIDNEY FAILURE, UNSPECIFIED (2) Lab test positive for detection of COVID-19 virus Current Visit: Yes Status: Acute Code(s): U07.1 - COVID-19 (3) Renal failure, chronic Current Visit: No Status: Chronic
[2020-10-30] MEDS: Sodium Bicarbonate 50 MEQ/50 ML VIAL*** 150 MEQ in Dextrose 5%/Water IV Soln. 1000 ML 1... IV SCH (19:09)
--- NOTE | 2020-10-30 21:05 | PCM.NOTE ---
Date and Time: 10/30/202103 Subjective Assessment: doing better - Review of Systems Constitutional: No Fever, No Chills Eyes: No Symptoms Ears, Nose, & Throat: No Symptoms Respiratory: No Cough, No Short Of Breath Cardiac: No Chest Pain, No Edema, No Syncope Abdominal/Gastrointestinal: No Abdominal Pain, No Nausea, No Vomiting, No Diarrhea Genitourinary Symptoms: No Dysuria Musculoskeletal: No Back Pain, No Neck Pain Skin: No Rash Neurological: No Dizziness, No Focal Weakness, No Sensory Changes Psychological: No Symptoms Endocrine: No Symptoms Hematologic/Lymphatic: No Symptoms Immunological/Allergic: No Symptoms Objective Exam General Appearance: no apparent distress, alert Neurologic Exam: alert, oriented x 3, cooperative, normal mood/affect, nml cerebellar function, sensation nml, No motor deficits Skin Exam: normal color, warm, dry Eye Exam: PERRL, EOMI, eyes nml inspection Ears, Nose, Throat Exam: normal ENT inspection, pharynx normal, moist mucous membranes Neck Exam: normal inspection, non-tender, supple, full range of motion Respiratory Exam: normal breath sounds, lungs clear, No respiratory distress Cardiovascular Exam: regular rate/rhythm, normal heart sounds Gastrointestinal/Abdomen Exam: soft, No tenderness, No mass Extremity Exam: normal inspection, normal range of motion Back Exam: normal inspection, normal range of motion, No CVA tenderness, No vertebral tenderness Male Genitalia Exam: deferred Rectal Exam: deferred OBJECTIVE DATA Vital Signs: Vital Signs - 24 hr Temp Pulse Resp BP Pulse Ox 10/30/20 20:00 98.0 F 63 16 100/48 97 10/30/20 18:00 20 10/30/20 17:55 70 16 97 10/30/20 16:15 97.9 F 60 16 92/52 95 10/30/20 16:00 20 10/30/20 14:00 18 10/30/20 13:44 61 16 97 10/30/20 12:18 97.7 F 68 18 98/54 96 10/30/20 12:00 18 10/30/20 10:00 18 10/30/20 09:54 104 H 18 95 10/30/20 07:46 97.6 F 60 16 101/55 97 10/30/20 07:41 16 10/30/20 07:05 94 L 10/30/20 06:00 55 L 16 94 L 10/30/20 04:00 97.8 F 60 18 119/53 95 10/30/20 02:00 60 18 95 10/29/20 23:27 98.7 F 70 16 100/53 96 10/29/20 22:00 64 16 94 L Pain Assessment - Last Documented Pain Intensity 0 Intake and Output: Intake & Output 10/28/20 10/29/20 10/30/20 10/31/20 11:59 11:59 11:59 11:59 Intake Total 1163 2121 Output Total 525 650 Balance 638 3511 Weight 61.1 kg Lab Results: Lab Results-Last 24 Hours 10/29/20 10/30/20 10/30/20 Range/Units 17:49 04:43 04:43 WBC 6.5 (4.0-10.5) K/mm3 RBC 4.07 L (4.1-5.6) M/mm3 Hgb 11.9 L (12.5-18.0) gm/dl Hct 36.2 L (42-50) % MCV 88.9 (78-100) fl MCH 29.2 (26-32) pg MCHC 32.9 (32-36) g/dl RDW 13.6 (11.5-14.0) % Plt Count 214 (150-450) K/mm3 MPV 11.2 H (7.5-11.0) fl Gran % 72.5 H (36.0-66.0) % Eos # (Auto) 0.18 (0-0.5) Absolute Lymphs (auto) 0.67 L (1.0-4.6) Absolute Monos (auto) 0.93 (0.0-1.3) Lymphocytes % 10.3 L (24.0-44.0) % Monocytes % 14.2 H (0.0-12.0) % Eosinophils % 2.8 (0.00-5.0) % Basophils % 0.2 (0.0-0.4) % Absolute Granulocytes 4.74 (1.4-6.9) Segmented Neutrophils 82 H (36.-66.) % Lymphocytes (Manual) 13 L (24-44) % Monocytes (Manual) 2 (0.0-12.0) % Eosinophils (Manual) 2 (0.00-3.0) % Basophils (Manual) 1 (0.0-1.0) % Basophils # 0.01 (0-0.4) Platelet Estimate NORMAL (NORMAL) RBC Morphology NORMAL Sodium 134 L (137-145) mmol/L Potassium 5.0 (3.5-5.1) mmol/L Chloride 109 H (98-107) mmol/L Carbon Dioxide 14 L* (22-30) mmol/L Anion Gap 15.9 H (5-15) MEQ/L BUN 75 H (9-20) mg/dL Creatinine 3.64 H (0.66-1.25) mg/dL Estimated GFR 17.1 ML/MIN Glucose 77 (74-106) mg/dL Hemoglobin A1c (4.5-6.0) % Calcium 8.8 (8.4-10.2) mg/dL Total Bilirubin 0.20 (0.2-1.3) mg/dL AST 30 (17-59) U/L ALT 17 (0-50) U/L Alkaline Phosphatase 69 (38-126) U/L Troponin I (0.000-0.034) ng/mL Serum Total Protein 6.6 (6.3-8.2) g/dL Albumin 3.8 (3.5-5.0) g/dL 10/30/20 10/30/20 Range/Units 05:00 14:14 WBC (4.0-10.5) K/mm3 RBC (4.1-5.6) M/mm3 Hgb (12.5-18.0) gm/dl Hct (42-50) % MCV (78-100) fl MCH (26-32) pg MCHC (32-36) g/dl RDW (11.5-14.0) % Plt Count (150-450) K/mm3 MPV (7.5-11.0) fl Gran % (36.0-66.0) % Eos # (Auto) (0-0.5) Absolute Lymphs (auto) (1.0-4.6) Absolute Monos (auto) (0.0-1.3) Lymphocytes % (24.0-44.0) % Monocytes % (0.0-12.0) % Eosinophils % (0.00-5.0) % Basophils % (0.0-0.4) % Absolute Granulocytes (1.4-6.9) Segmented Neutrophils (36.-66.) % Lymphocytes (Manual) (24-44) % Monocytes (Manual) (0.0-12.0) % Eosinophils (Manual) (0.00-3.0) % Basophils (Manual) (0.0-1.0) % Basophils # (0-0.4) Platelet Estimate (NORMAL) RBC Morphology Sodium (137-145) mmol/L Potassium (3.5-5.1) mmol/L Chloride (98-107) mmol/L Carbon Dioxide (22-30) mmol/L Anion Gap (5-15) MEQ/L BUN (9-20) mg/dL Creatinine (0.66-1.25) mg/dL Estimated GFR ML/MIN Glucose (74-106) mg/dL Hemoglobin A1c 5.79 (4.5-6.0) % Calcium (8.4-10.2) mg/dL Total Bilirubin (0.2-1.3) mg/dL AST (17-59) U/L ALT (0-50) U/L Alkaline Phosphatase (38-126) U/L Troponin I 0.094 H* (0.000-0.034) ng/mL Serum Total Protein (6.3-8.2) g/dL Albumin (3.5-5.0) g/dL Radiology Exams: Radiology Procedures Category Date Time Status BLADDER [US] Routine Exams 10/31/20 08:00 Ordered CHEST 1 VIEW (PORTABLE) Routine Exams 10/29/20 22:30 Completed Assessment/Plan (1) Acute kidney injury due to COVID-19 Current Visit: Yes Status: Acute Assessment & Plan: Chief Complaint Diagnosis shortness of breath, abnormal renal function Allergies Allergy/AdvReac Type Severity Reaction Status Date / Time sulfamethoxazole Allergy Verified 01/09/19 09:58 [From Bactrim] trimethoprim [From Bactrim] Allergy Verified 09/22/17 16:24 Vital Signs (Last 24 hours) Temp Pulse Resp BP Pulse Ox 10/30/20 20:00 98.0 F 63 16 100/48 97 10/30/20 18:00 20 10/30/20 17:55 70 16 97 10/30/20 16:15 97.9 F 60 16 92/52 95 10/30/20 16:00 20 10/30/20 14:00 18 10/30/20 13:44 61 16 97 10/30/20 12:18 97.7 F 68 18 98/54 96 10/30/20 12:00 18 10/30/20 10:00 18 10/30/20 09:54 104 H 18 95 10/30/20 07:46 97.6 F 60 16 101/55 97 10/30/20 07:41 16 10/30/20 07:05 94 L 10/30/20 06:00 55 L 16 94 L 10/30/20 04:00 97.8 F 60 18 119/53 95 10/30/20 02:00 60 18 95 10/29/20 23:27 98.7 F 70 16 100/53 96 10/29/20 22:00 64 16 94 L Home Medications Medication Instructions Recorded Confirmed Last Taken Type Cholestyramine Light 4 gm 2 gm PO BID 10/29/20 10/29/20 Unknown History [QUESTRAN Light 4 GM Packet] Current Medications Generic Name Dose Route Start Last Admin Trade Name Freq PRN Reason Stop Dose Admin Hydrocodone Bitart/Acetaminophen 1 tab 10/29/20 17:33 [place] 5/325 Mg PO 11/03/20 17:32 [id number] PRN PAIN Cholestyramine Resin 2 gm 10/29/20 22:00 10/30/20 10:02 Questran Light 4 Gm Packet PO 11/28/20 21:59 2 gm BID TUNG Administration Enoxaparin Sodium 40 mg 10/30/20 10:00 10/30/20 10:01 Enoxaparin Sodium SQ 11/29/20 09:59 40 mg DAILY TUNG Administration Folic Acid 1 mg 10/29/20 22:00 10/29/20 21:31 Folate 1 Mg PO 11/28/20 21:59 1 mg QHS TUNG Administration Gabapentin 600 mg 10/29/20 22:00 10/29/20 21:31 Neurontin 300 Mg PO 11/28/20 21:59 600 mg QHS TUNG Administration Sodium Bicarbonate 150 meq/ 1,150 mls @ 100 mls/hr 10/30/20 18:30 10/30/20 19:09 Dextrose IV 11/29/20 18:29 100 mls/hr .[id number] TUNG 100 mls/hr Administration Bethanechol 50mg 1 each 10/29/20 22:00 10/30/20 14:27 Tablet PO 11/28/20 21:59 1 each TID TUNG Administration Tamsulosin HCl 0.4 mg 10/29/20 22:00 10/29/20 21:31 Flomax 0.4 Mg PO 11/28/20 21:59 0.4 mg QHS TUNG Administration Discontinued Medications Generic Name Dose Route Start Last Admin Trade Name Pamela PRN Reason Stop Dose Admin Lactated Ringer's 1,000 mls @ 75 mls/hr 10/29/20 18:00 10/30/20 05:47 Lactated Ringers IV 11/28/20 17:59 75 mls/hr .[id number] TUNG Administration Dextrose Confirm 10/30/20 18:35 Dextrose 5%/Water Iv Soln. 1000 Ml Administered 10/30/20 18:36 Dose 1,000 mls @ ud IV .STK-MED ONE Non-Formulary Medication 50 mg 10/29/20 22:00 Bethanechol Chloride [Urecholine] PO 11/28/20 21:59 TID TUNG Sodium Bicarbonate Confirm 10/30/20 18:34 Sodium Bicarbonate 50 Meq/50 Ml Abboject Administered 10/30/20 18:35 Dose 100 meq IV .STK-MED ONE Sodium Bicarbonate Confirm 10/30/20 18:36 Sodium Bicarbonate 50 Meq/50 Ml Vial Administered 10/30/20 18:37 Dose 50 meq .ROUTE .STK-MED ONE Intake & Output (Last 24 hours) 10/28/20 10/29/20 10/30/20 10/31/20 11:59 11:59 11:59 11:59 Intake Total 1163 2121 Output Total 525 650 Balance 638 1471 Weight 61.1 kg Laboratory Results (Last 24 hours) 10/30/20 10/30/20 10/30/20 14:14 05:00 04:43 WBC RBC Hgb Hct MCV MCH MCHC RDW Plt Count MPV Gran % Eos # (Auto) Absolute Lymphs (auto) Absolute Monos (auto) Lymphocytes % Monocytes % Eosinophils % Basophils % Absolute Granulocytes Segmented Neutrophils Lymphocytes (Manual) Monocytes (Manual) Eosinophils (Manual) Basophils (Manual) Basophils # Platelet Estimate RBC Morphology Sodium 134 L Potassium 5.0 Chloride 109 H Carbon Dioxide 14 L* Anion Gap 15.9 H BUN 75 H Creatinine 3.64 H Estimated GFR 17.1 Glucose 77 Hemoglobin A1c 5.79 Calcium 8.8 Total Bilirubin 0.20 AST 30 ALT 17 Alkaline Phosphatase 69 Troponin I 0.094 H* Serum Total Protein 6.6 Albumin 3.8 10/30/20 10/29/20 04:43 17:49 WBC 6.5 RBC 4.07 L Hgb 11.9 L Hct 36.2 L MCV 88.9 MCH 29.2 MCHC 32.9 RDW 13.6 Plt Count 214 MPV 11.2 H Gran % 72.5 H Eos # (Auto) 0.18 Absolute Lymphs (auto) 0.67 L Absolute Monos (auto) 0.93 Lymphocytes % 10.3 L Monocytes % 14.2 H Eosinophils % 2.8 Basophils % 0.2 Absolute Granulocytes 4.74 Segmented Neutrophils 82 H Lymphocytes (Manual) 13 L Monocytes (Manual) 2 Eosinophils (Manual) 2 Basophils (Manual) 1 Basophils # 0.01 Platelet Estimate NORMAL RBC Morphology NORMAL Sodium Potassium Chloride Carbon Dioxide Anion Gap BUN Creatinine Estimated GFR Glucose Hemoglobin A1c Calcium Total Bilirubin AST ALT Alkaline Phosphatase Troponin I Serum Total Protein Albumin Orders (Last 24 hours) Category Date Time Status Miscellaneous Nursing Order ROUTINE Care 10/30/20 13:06 Active Consult Nephrology ROUTINE Cons 10/29/20 20:36 Completed BLADDER [US] Routine Exams 10/31/20 08:00 Ordered CHEST 1 VIEW (PORTABLE) Routine Exams 10/29/20 22:30 Completed CBC AM.LAB Lab 10/31/20 04:00 Ordered CBC AM.LAB Lab 11/01/20 04:00 Ordered CBC AM.LAB Lab 11/02/20 04:00 Ordered CBC W DIFF AM.LAB Lab 10/30/20 04:43 Completed CMP AM.LAB Lab 10/30/20 04:43 Completed CMP AM.LAB Lab 10/31/20 04:00 Ordered CMP AM.LAB Lab 11/01/20 04:00 Ordered CMP AM.LAB Lab 11/02/20 04:00 Ordered D-DIMER QUANTITATIVE AM.LAB Lab 10/31/20 04:00 Ordered HEMOGLOBIN A1C Urgent Lab 10/30/20 05:00 Completed MAG [MAGNESIUM] AM.LAB Lab 10/31/20 04:00 Ordered MAG [MAGNESIUM] AM.LAB Lab 11/01/20 04:00 Ordered MAG [MAGNESIUM] AM.LAB Lab 11/02/20 04:00 Ordered TROPONIN Stat Lab 10/30/20 14:14 Completed Bethanechol Chloride [Urecholine] Med 10/29/20 22:00 Discontinued 50 mg PO TID Cholestyramine Light 4 gm [QUESTRAN Light 4 GM Med 10/29/20 22:00 Active Packet] 2 gm PO BID D5w 1000 ml [Dextrose 5%/Water IV Soln. 1000 ML] 1,000 Med 10/30/20 18:30 Ordered ml Sodium Bicarbonate 50Meq Vial* [Sodium Bicarbonate 50 MEQ/50 ML VIAL] 150 meq IV 100 mls/hr D5w 1000 ml [Dextrose 5%/Water IV Soln. 1000 ML] 1,000 Med 10/30/20 18:35 Discontinued ml IV UD Enoxaparin Sodium [Enoxaparin Sodium] Med 10/30/20 10:00 Active 40 mg SQ DAILY Folic Acid 1 mg [Folate 1 mg] Med 10/29/20 22:00 Active 1 mg PO QHS Gabapentin 300 mg [Neurontin 300 mg] Med 10/29/20 22:00 Active 600 mg PO QHS Non-Formulary Drug [Non-Formulary Item] Med 10/29/20 22:00 Active 1 each PO TID Sodium Bicarbonate 50 Meq Abb* [Sodium Bicarbonate 50 Med 10/30/20 18:34 Discontinued Meq/50 ml Abboject] 100 meq IV .STK-MED ONE Sodium Bicarbonate 50Meq Vial* [Sodium Bicarbonate 50 Med 10/30/20 18:36 Discontinued MEQ/50 ML VIAL] 50 meq .ROUTE .STK-MED ONE Tamsulosin HCl 0.4 mg [Flomax 0.4 MG] Med 10/29/20 22:00 Active 0.4 mg PO QHS Patient Care Notes (Last 24 hours) 10/30/20 09:44 Nursing Note by Yu Gonsales CALLED DR SCHWARTZ'S OFFICE TODAY @ [id number], SPOKE WITH ESMER. SHE STATED THAT DR BIGGS IS COVERING FOR DR SCHWARTZ. SHE TOOK ALL THE CONSULT INFORMATION AND SOMEONE WILL BE CALLING US BACK. Initialized on 10/30/20 09:44 - END OF NOTE Code(s): U07.1 - COVID-19; N17.9 - ACUTE KIDNEY FAILURE, UNSPECIFIED (2) Lab test positive for detection of COVID-19 virus Current Visit: Yes Status: Acute Code(s): U07.1 - COVID-19 (3) Renal failure, chronic Current Visit: Yes Status: Chronic Qualifiers: Chronic kidney disease stage: stage 4 (severe) Qualified Code(s): N18.4 - Chronic kidney disease, stage 4 (severe)
[2020-10-30] MEDS: NEURONTIN 300 MG PO SCH (21:18)
[2020-10-30] MEDS: Flomax 0.4 MG PO SCH (21:18)
[2020-10-30] MEDS: FOLATE 1 MG PO SCH (21:18)
[2020-10-31] MEDS ORDERED: SODIUM BICARBONATE 50 MEQ/50 ML ABBOJECT IV ONE (04:56)
[2020-10-31] MEDS ORDERED: Dextrose 5%/Water IV Soln. 1000 ML 1,000 ML IV ONE (04:57)
[2020-10-31] MEDS: Sodium Bicarbonate 50 MEQ/50 ML VIAL*** 150 MEQ in Dextrose 5%/Water IV Soln. 1000 ML 1... IV SCH ×2 (05:05→20:15)
[2020-10-31 05:51] LABS: Hematocrit 32.1 % (42-50); Hemoglobin 10.4 gm/dl (12.5-18.0); Mean Cell Volume 88.7 fl (78-100); Mean Corpuscular Hemoglobin 28.7 pg (26-32); Mean Corpuscular Hgb Concent. 32.4 g/dl (32-36); Mean Platelet Volume 10.7 fl (7.5-11.0); Platelet Count 189 K/mm3 (150-450); Red Blood Count 3.62 M/mm3 (4.1-5.6); Red Cell Distribution Width 13.5 % (11.5-14.0); White Blood Count 5.7 K/mm3 (4.0-10.5)
[2020-10-31 06:12] LABS: ANION GAP 12.4 MEQ/L (5-15); BILIRUBIN,TOTAL 0.4 mg/dL (0.2-1.3); Calcium 7.3 mg/dL (8.4-10.2); Creatinine 1 2.39 mg/dL (0.66-1.25); EST GLOMERULAR FILTRATION RATE 27.8 ML/MIN; MAGNESIUM 1.4 mg/dL (1.6-2.3); Potassium 3.7 mmol/L (3.5-5.1); Total Protein 5.4 g/dL (6.3-8.2)
--- NOTE | 2020-10-31 09:29 | CONS ---
CONSULT DATE: 10/30/2020 REASON FOR CONSULT: Acute kidney injury, underlying chronic kidney disease. HISTORY: The patient is an 80 year-old gentleman who follows with Dr. Guajardo for chronic kidney disease and related problems. He apparently was feeling poorly and was seen by Dr. Allred and was a directly admitted to the hospital. The patient said he was diagnosed with COVID about two weeks ago. He denies any active vomiting. No diarrhea. He has noticed some increased output from his ostomy. He tries to empty it more than three or four times a day. He denies any vomiting or fever. He said he does not drink much water. REVIEW OF SYSTEMS: No vomiting. No fever. No chest pain. He said he has some shortness of breath on minimal exertion, denies any urinary difficulties. All other systems were reviewed and negative except as stated above. PAST MEDICAL HISTORY: Chronic kidney disease. Overactive bladder. Benign prostatic hypertrophy. MEDICATIONS: Home medications and medicines in the hospital were reviewed per the medication sheet. ALLERGIES: SULFAMETHOXAZOLE. TRIMETHOPRIM. SOCIAL HISTORY: Denies any tobacco, alcohol or illicit substance abuse. He lives at home by himself. PHYSICAL EXAMINATION: The patient is awake, alert, oriented and not in any acute distress. Vital signs reviewed. HEENT: Head normocephalic. Eyes nonicteric. No pallor. ENT mucosa moist. NECK: No JVD. Trachea midline. CHEST: Bilateral clear to auscultation. No rhonchi. No rales. No respiratory distress. CVS: Appears regular. EXTREMITIES: No peripheral edema. ABDOMEN: Soft, nontender, positive bowel sounds. No palpable edema or cyanosis. The patient has an ostomy. NEUROLOGIC: Awake, alert, oriented x3. Following commands and answering all questions appropriately. PSYCHIATRIC: Appropriate mood and affect. SKIN: Warm and dry. LAB DATA AND TESTS: Labs reviewed. BUN 75, creatinine 3.6, sodium 134, bicarb 14. Hemoglobin 11.9 and yesterday hemoglobin 14.3. COVID was positive. BUN 79, creatinine 4.4, bicarb 13. Troponin 0.082. A1C 5.79. Chest x-ray showed no focal infiltrate. COVID is positive. ASSESSMENT AND PLAN: An 80 year-old gentleman with medical problems of: 1) Acute kidney injury with creatinine of around 2, underlying acute kidney disease stage IV. Acute kidney injury likely related to dehydration and possibly increased ostomy output. Urinary retention needs to be ruled out. I will order a bladder stent. I will also order IV fluids with bicarb of 12 with acidosis and increased output from the ostomy. I agree with continuing cholestyramine and also may need Imodium, monitor fluid and electrolytes, monitor input/output at this time and will continue to follow him closely. 2) Metabolic acidosis, hyperkalemic, nonanion gap hyperkalemic likely due to bicarb loss from ostomy and from poor renal function. I will start bicarb drip and will monitor acid base levels closely; rule out overactive bladder. 3) Urinary retention. He is on Bethanechol which I will continue. I will check a bladder scan to rule out any ongoing retention. 4) High ostomy output. I will recommend cholestyramine and he may need Imodium as well as monitor bicarb and IV fluids. 5) COVID-19. The patient's chest x-ray is clear. He is on room air. He is two weeks out from his initial diagnosis so at this time he does not seem to require treatment. He was vaccinated. Continue to monitor his progress. Thank you for this consultation. Please do not hesitate to contact me if there are any questions.
--- NOTE | 2020-10-31 10:22 | XRAY ---
Indication: Bladder retention. Two-dimensional urinary bladder sonogram performed. Comparison: September 07, 2013. Urinary bladder moderately distended without focal mass or wall thickening. Ureteral jets not seen within the allotted exam time. Prevoid volume is 1012 cc. Postvoid volume is 740 cc. Impression: Large urinary bladder post void residual as detailed.
[2020-10-31] MEDS: QUESTRAN Light 4 GM Packet PO SCH ×2 (10:38→21:02)
[2020-10-31] MEDS: NON-FORMULARY ITEM PO SCH ×3 (10:38→21:01)
[2020-10-31] MEDS: ENOXAPARIN SODIUM SQ SCH (10:38)
--- NOTE | 2020-10-31 20:05 | PCM.NOTE ---
Date and Time: 10/31/202003 Subjective Assessment: doing better - Review of Systems Constitutional: No Fever, No Chills Eyes: No Symptoms Ears, Nose, & Throat: No Symptoms Respiratory: No Cough, No Short Of Breath Cardiac: No Chest Pain, No Edema, No Syncope Abdominal/Gastrointestinal: No Abdominal Pain, No Nausea, No Vomiting, No Diarrhea Genitourinary Symptoms: No Dysuria Musculoskeletal: No Back Pain, No Neck Pain Skin: No Rash Neurological: No Dizziness, No Focal Weakness, No Sensory Changes Psychological: No Symptoms Endocrine: No Symptoms Hematologic/Lymphatic: No Symptoms Immunological/Allergic: No Symptoms Objective Exam General Appearance: no apparent distress, alert Neurologic Exam: alert, oriented x 3, cooperative, normal mood/affect, nml cerebellar function, sensation nml, No motor deficits Skin Exam: normal color, warm, dry Eye Exam: PERRL, EOMI, eyes nml inspection Ears, Nose, Throat Exam: normal ENT inspection, pharynx normal, moist mucous membranes Neck Exam: normal inspection, non-tender, supple, full range of motion Respiratory Exam: normal breath sounds, lungs clear, No respiratory distress Cardiovascular Exam: regular rate/rhythm, normal heart sounds Gastrointestinal/Abdomen Exam: soft, No tenderness, No mass Extremity Exam: normal inspection, normal range of motion Back Exam: normal inspection, normal range of motion, No CVA tenderness, No vertebral tenderness Male Genitalia Exam: deferred Rectal Exam: deferred OBJECTIVE DATA Vital Signs: Vital Signs - 24 hr Temp Pulse Resp BP Pulse Ox 10/31/20 19:38 98.0 F 86 15 103/49 95 10/31/20 19:21 95 10/31/20 18:00 61 12 99 10/31/20 16:00 98.0 F 61 16 101/53 96 10/31/20 14:00 72 20 96 10/31/20 12:00 20 10/31/20 11:52 97.6 F 66 16 97/43 96 10/31/20 10:00 72 18 96 10/31/20 08:00 18 10/31/20 07:55 97.8 F 65 19 117/68 95 10/31/20 07:25 95 10/31/20 05:48 57 L 15 94 L 10/31/20 04:00 97.7 F 63 17 91/46 94 L 10/31/20 01:47 56 L 14 94 L 10/31/20 00:44 98/43 10/31/20 00:00 98.6 F 62 14 91/39 94 L 10/30/20 22:00 18 10/30/20 21:55 63 19 97 10/30/20 21:18 97 Pain Assessment - Last Documented Pain Intensity 0 Intake and Output: Intake & Output 10/29/20 10/30/20 10/31/20 11/01/20 11:59 11:59 11:59 11:59 Intake Total 1163 4467 480 Output Total 525 1900 1400 Balance 638 2567 -920 Weight 61.1 kg 61.3 kg Lab Results: Lab Results-Last 24 Hours 10/31/20 10/31/20 10/31/20 Range/Units 05:40 05:40 05:40 WBC 5.7 (4.0-10.5) K/mm3 RBC 3.62 L (4.1-5.6) M/mm3 Hgb 10.4 L (12.5-18.0) gm/dl Hct 32.1 L (42-50) % MCV 88.7 (78-100) fl MCH 28.7 (26-32) pg MCHC 32.4 (32-36) g/dl RDW 13.5 (11.5-14.0) % Plt Count 189 (150-450) K/mm3 MPV 10.7 (7.5-11.0) fl D-Dimer 2059 H* (215-500) ng/mL Sodium 134 L (137-145) mmol/L Potassium 3.7 D (3.5-5.1) mmol/L Chloride 107 (98-107) mmol/L Carbon Dioxide 18 L (22-30) mmol/L Anion Gap 12.4 (5-15) MEQ/L BUN 60 H (9-20) mg/dL Creatinine 2.39 H (0.66-1.25) mg/dL Estimated GFR 27.8 ML/MIN Glucose 90 (74-106) mg/dL Calcium 7.3 L D (8.4-10.2) mg/dL Magnesium 1.4 L (1.6-2.3) mg/dL Total Bilirubin 0.40 (0.2-1.3) mg/dL AST 31 (17-59) U/L ALT 13 (0-50) U/L Alkaline Phosphatase 45 (38-126) U/L Serum Total Protein 5.4 L (6.3-8.2) g/dL Albumin 3.0 L (3.5-5.0) g/dL Radiology Exams: Radiology Procedures Category Date Time Status BLADDER [US] Routine Exams 10/31/20 08:00 Completed CHEST 1 VIEW (PORTABLE) Routine Exams 10/29/20 22:30 Completed Multi-Disciplinary Progress Notes: Multi-Disciplinary Progress Notes 10/31/20 12:06 Case Management Note by Lila Black S/W APS TODAY- THEY ARE GETTING AHOLD OF THE OFFICE TO GET PATIENT'S FINANCIAL INFORMATION Initialized on 10/31/20 12:06 - END OF NOTE 10/31/20 10:33 Case Management Note by Lila Black S/Rajani PATIENT THIS AM- HE CONTINUES TO DENY ANY NEW NEEDS REGARDING DC AT THIS TIME- WILL CONTINUE TO FOLLOW Initialized on 10/31/20 10:33 - END OF NOTE Assessment/Plan (1) Acute kidney injury due to COVID-19 Current Visit: Yes Status: Acute Assessment & Plan: Chief Complaint Diagnosis ACUTE KIDNEY INJURY, METABOLIC ACIDOSIS Allergies Allergy/AdvReac Type Severity Reaction Status Date / Time sulfamethoxazole Allergy Verified 01/09/19 09:58 [From Bactrim] trimethoprim [From Bactrim] Allergy Verified 09/22/17 16:24 Vital Signs (Last 24 hours) Temp Pulse Resp BP Pulse Ox 10/31/20 19:38 98.0 F 86 15 103/49 95 10/31/20 19:21 95 10/31/20 18:00 61 12 99 10/31/20 16:00 98.0 F 61 16 101/53 96 10/31/20 14:00 72 20 96 10/31/20 12:00 20 10/31/20 11:52 97.6 F 66 16 97/43 96 10/31/20 10:00 72 18 96 10/31/20 08:00 18 10/31/20 07:55 97.8 F 65 19 117/68 95 10/31/20 07:25 95 10/31/20 05:48 57 L 15 94 L 10/31/20 04:00 97.7 F 63 17 91/46 94 L 10/31/20 01:47 56 L 14 94 L 10/31/20 00:44 98/43 10/31/20 00:00 98.6 F 62 14 91/39 94 L 10/30/20 22:00 18 10/30/20 21:55 63 19 97 10/30/20 21:18 97 Home Medications Medication Instructions Recorded Confirmed Last Taken Type Cholestyramine Light 4 gm 2 gm PO BID 10/29/20 10/29/20 Unknown History [QUESTRAN Light 4 GM Packet] Current Medications Generic Name Dose Route Start Last Admin Trade Name Freq PRN Reason Stop Dose Admin Hydrocodone Bitart/Acetaminophen 1 tab 10/29/20 17:33 [place] 5/325 Mg PO 11/03/20 17:32 Q6HPRN PRN PAIN Cholestyramine Resin 2 gm 10/29/20 22:00 10/31/20 10:38 Questran Light 4 Gm Packet PO 11/28/20 21:59 2 gm BID TUNG Administration Enoxaparin Sodium 40 mg 10/30/20 10:00 10/31/20 10:38 Enoxaparin Sodium SQ 11/29/20 09:59 40 mg DAILY UTNG Administration Folic Acid 1 mg 10/29/20 22:00 10/30/20 21:18 Folate 1 Mg PO 11/28/20 21:59 1 mg QHS TUNG Administration Gabapentin 600 mg 10/29/20 22:00 10/30/20 21:18 Neurontin 300 Mg PO 11/28/20 21:59 600 mg QHS TUNG Administration Sodium Bicarbonate 150 meq/ 1,150 mls @ 100 mls/hr 10/30/20 18:30 10/31/20 05:05 Dextrose IV 11/29/20 18:29 100 mls/hr .[id number] TUNG 100 mls/hr Administration Bethanechol 50mg 1 each 10/29/20 22:00 10/31/20 15:02 Tablet PO 11/28/20 21:59 1 each TID TUNG Administration Tamsulosin HCl 0.4 mg 10/29/20 22:00 10/30/20 21:18 Flomax 0.4 Mg PO 11/28/20 21:59 0.4 mg QHS TUNG Administration Discontinued Medications Generic Name Dose Route Start Last Admin Trade Name Freq PRN Reason Stop Dose Admin Lactated Ringer's 1,000 mls @ 75 mls/hr 10/29/20 18:00 10/30/20 05:47 Lactated Ringers IV 11/28/20 17:59 75 mls/hr .[id number] TUNG Administration Dextrose Confirm 10/30/20 18:35 Dextrose 5%/Water Iv Soln. 1000 Ml Administered 10/30/20 18:36 Dose 1,000 mls @ ud IV .STK-MED ONE Dextrose Confirm 10/31/20 04:57 Dextrose 5%/Water Iv Soln. 1000 Ml Administered 10/31/20 04:58 Dose 1,000 mls @ ud IV .STK-MED ONE Non-Formulary Medication 50 mg 10/29/20 22:00 Bethanechol Chloride [Urecholine] PO 11/28/20 21:59 TID TUNG Sodium Bicarbonate Confirm 10/30/20 18:34 Sodium Bicarbonate 50 Meq/50 Ml Abboject Administered 10/30/20 18:35 Dose 100 meq IV .STK-MED ONE Sodium Bicarbonate Confirm 10/30/20 18:36 Sodium Bicarbonate 50 Meq/50 Ml Vial Administered 10/30/20 18:37 Dose 50 meq .ROUTE .STK-MED ONE Sodium Bicarbonate Confirm 10/31/20 04:56 Sodium Bicarbonate 50 Meq/50 Ml Abboject Administered 10/31/20 04:57 Dose 50 meq IV .STK-MED ONE Intake & Output (Last 24 hours) 10/29/20 10/30/20 10/31/20 11/01/20 11:59 11:59 11:59 11:59 Intake Total 1163 4467 480 Output Total 525 1900 1400 Balance 638 2567 -920 Weight 61.1 kg 61.3 kg Laboratory Results (Last 24 hours) 10/31/20 10/31/20 10/31/20 05:40 05:40 05:40 WBC 5.7 RBC 3.62 L Hgb 10.4 L Hct 32.1 L MCV 88.7 MCH 28.7 MCHC 32.4 RDW 13.5 Plt Count 189 MPV 10.7 D-Dimer 2059 H* Sodium 134 L Potassium 3.7 D Chloride 107 Carbon Dioxide 18 L Anion Gap 12.4 BUN 60 H Creatinine 2.39 H Estimated GFR 27.8 Glucose 90 Calcium 7.3 L D Magnesium 1.4 L Total Bilirubin 0.40 AST 31 ALT 13 Alkaline Phosphatase 45 Serum Total Protein 5.4 L Albumin 3.0 L Orders (Last 24 hours) Category Date Time Status BLADDER [US] Routine Exams 10/31/20 08:00 Completed CBC AM.LAB Lab 10/31/20 05:40 Completed CBC AM.LAB Lab 11/01/20 04:00 Ordered CBC AM.LAB Lab 11/02/20 04:00 Ordered CMP AM.LAB Lab 10/31/20 05:40 Completed CMP AM.LAB Lab 11/01/20 04:00 Ordered CMP AM.LAB Lab 11/02/20 04:00 Ordered D-DIMER QUANTITATIVE AM.LAB Lab 10/31/20 05:40 Completed MAG [MAGNESIUM] AM.LAB Lab 10/31/20 05:40 Completed MAG [MAGNESIUM] AM.LAB Lab 11/01/20 04:00 Ordered MAG [MAGNESIUM] AM.LAB Lab 11/02/20 04:00 Ordered D5w 1000 ml [Dextrose 5%/Water IV Soln. 1000 ML] 1,000 Med 10/31/20 04:57 Discontinued ml IV UD Sodium Bicarbonate 50 Meq Abb* [Sodium Bicarbonate 50 Med 10/31/20 04:56 Discontinued Meq/50 ml Abboject] 50 meq IV .STK-MED ONE Patient Care Notes (Last 24 hours) 10/31/20 12:06 Case Management Note by Lila Black S/W APS TODAY- THEY ARE GETTING AHOLD OF THE OFFICE TO GET PATIENT'S FINANCIAL INFORMATION Initialized on 10/31/20 12:06 - END OF NOTE 10/31/20 10:33 Case Management Note by Lila Black S/Rajani PATIENT THIS AM- HE CONTINUES TO DENY ANY NEW NEEDS REGARDING DC AT THIS TIME- WILL CONTINUE TO FOLLOW Initialized on 10/31/20 10:33 - END OF NOTE 10/31/20 00:44 ADMINISTRATIVE SALES ASSISTANT Note by Ivette Devine was done on pts BP. FREDERICK Masters aware that is 98/43 Initialized on 10/31/20 00:44 - END OF NOTE 10/31/20 00:12 ADMINISTRATIVE SALES ASSISTANT Note by Ivette Devine RN is aware of pts BP being 91/39 will repeat within the hour Initialized on 10/31/20 00:12 - END OF NOTE Code(s): U07.1 - COVID-19; N17.9 - ACUTE KIDNEY FAILURE, UNSPECIFIED (2) Lab test positive for detection of COVID-19 virus Current Visit: Yes Status: Acute Code(s): U07.1 - COVID-19 (3) Renal failure, chronic Current Visit: Yes Status: Chronic Qualifiers: Chronic kidney disease stage: stage 4 (severe) Qualified Code(s): N18.4 - Chronic kidney disease, stage 4 (severe)
[2020-10-31] MEDS: Flomax 0.4 MG PO SCH (21:01)
[2020-10-31] MEDS: NEURONTIN 300 MG PO SCH (21:01)
[2020-10-31] MEDS: FOLATE 1 MG PO SCH (21:01)
[2020-11-01 05:20] LABS: Hematocrit 34.4 % (42-50); Hemoglobin 11.1 gm/dl (12.5-18.0); Mean Cell Volume 89.8 fl (78-100); Mean Corpuscular Hgb Concent. 32.3 g/dl (32-36); Mean Platelet Volume 11.1 fl (7.5-11.0); Platelet Count 200 K/mm3 (150-450); Red Blood Count 3.83 M/mm3 (4.1-5.6); Red Cell Distribution Width 13.4 % (11.5-14.0)
[2020-11-01 06:03] LABS: ALBUMIN 3.4 g/dL (3.5-5.0); ANION GAP 11.1 MEQ/L (5-15); BILIRUBIN,TOTAL 0.1 mg/dL (0.2-1.3); Calcium 7.3 mg/dL (8.4-10.2); Creatinine 1 2.1 mg/dL (0.66-1.25); EST GLOMERULAR FILTRATION RATE 32.3 ML/MIN; MAGNESIUM 1.3 mg/dL (1.6-2.3); Potassium 3.5 mmol/L (3.5-5.1); Total Protein 5.9 g/dL (6.3-8.2)
[2020-11-01 07:53] VITALS: BP 94/61
--- NOTE | 2020-11-01 08:18 | PCM.NOTE ---
Date and Time: 11/01/20816 Subjective Assessment: doing better, no COVID related symptoms - Review of Systems Constitutional: No Fever, No Chills Eyes: No Symptoms Ears, Nose, & Throat: No Symptoms Respiratory: No Cough, No Short Of Breath Cardiac: No Chest Pain, No Edema, No Syncope Abdominal/Gastrointestinal: No Abdominal Pain, No Nausea, No Vomiting, No Diarrhea Genitourinary Symptoms: No Dysuria Musculoskeletal: No Back Pain, No Neck Pain Skin: No Rash Neurological: No Dizziness, No Focal Weakness, No Sensory Changes Psychological: No Symptoms Endocrine: No Symptoms Hematologic/Lymphatic: No Symptoms Immunological/Allergic: No Symptoms Objective Exam General Appearance: no apparent distress, alert Neurologic Exam: alert, oriented x 3, cooperative, normal mood/affect, nml cerebellar function, sensation nml, No motor deficits Skin Exam: normal color, warm, dry Eye Exam: PERRL, EOMI, eyes nml inspection Ears, Nose, Throat Exam: normal ENT inspection, pharynx normal, moist mucous membranes Neck Exam: normal inspection, non-tender, supple, full range of motion Respiratory Exam: normal breath sounds, lungs clear, No respiratory distress Cardiovascular Exam: regular rate/rhythm, normal heart sounds Gastrointestinal/Abdomen Exam: soft, No tenderness, No mass Extremity Exam: normal inspection, normal range of motion Back Exam: normal inspection, normal range of motion, No CVA tenderness, No vertebral tenderness Male Genitalia Exam: deferred Rectal Exam: deferred OBJECTIVE DATA Vital Signs: Vital Signs - 24 hr Temp Pulse Resp BP Pulse Ox 11/01/20 08:00 12 11/01/20 07:50 96.9 F 82 12 94/61 93 L 11/01/20 06:39 92 L 11/01/20 05:45 66 22 93 L 11/01/20 04:00 16 11/01/20 03:43 98.5 F 60 20 84/42 94 L 11/01/20 01:49 65 16 94 L 11/01/20 01:47 16 11/01/20 00:00 97.7 F 76 15 145/48 95 10/31/20 22:00 62 18 96 10/31/20 20:00 66 10/31/20 19:38 98.0 F 86 15 103/49 95 10/31/20 19:21 95 10/31/20 18:00 61 12 99 10/31/20 16:00 98.0 F 61 16 101/53 96 10/31/20 14:00 72 20 96 10/31/20 12:00 20 10/31/20 11:52 97.6 F 66 16 97/43 96 10/31/20 10:00 72 18 96 Pain Assessment - Last Documented Pain Intensity 0 Intake and Output: Intake & Output 10/29/20 10/30/20 10/31/20 11/01/20 11:59 11:59 11:59 11:59 Intake Total 1163 4466 3648 Output Total 525 1900 1999 Balance 639 6040 0978 Weight 61.1 kg 61.3 kg Lab Results: Lab Results-Last 24 Hours 11/01/20 11/01/20 Range/Units 05:05 05:05 WBC 9.0 (4.0-10.5) K/mm3 RBC 3.83 L (4.1-5.6) M/mm3 Hgb 11.1 L (12.5-18.0) gm/dl Hct 34.4 L (42-50) % MCV 89.8 (78-100) fl MCH 29.0 (26-32) pg MCHC 32.3 (32-36) g/dl RDW 13.4 (11.5-14.0) % Plt Count 200 (150-450) K/mm3 MPV 11.1 H (7.5-11.0) fl Sodium 136 L (137-145) mmol/L Potassium 3.5 (3.5-5.1) mmol/L Chloride 100 (98-107) mmol/L Carbon Dioxide 28 (22-30) mmol/L Anion Gap 11.1 (5-15) MEQ/L BUN 46 H (9-20) mg/dL Creatinine 2.10 H (0.66-1.25) mg/dL Estimated GFR 32.3 ML/MIN Glucose 68 L (74-106) mg/dL Calcium 7.3 L (8.4-10.2) mg/dL Magnesium 1.3 L (1.6-2.3) mg/dL Total Bilirubin 0.10 L (0.2-1.3) mg/dL AST 34 (17-59) U/L ALT 14 (0-50) U/L Alkaline Phosphatase 46 (38-126) U/L Serum Total Protein 5.9 L (6.3-8.2) g/dL Albumin 3.4 L (3.5-5.0) g/dL Radiology Exams: Radiology Procedures Category Date Time Status BLADDER [US] Routine Exams 10/31/20 08:00 Completed Multi-Disciplinary Progress Notes: Multi-Disciplinary Progress Notes 10/31/20 12:06 Case Management Note by Lila Black S/Rajani APS TODAY- THEY ARE GETTING AHOLD OF THE OFFICE TO GET PATIENT'S FINANCIAL INFORMATION Initialized on 10/31/20 12:06 - END OF NOTE 10/31/20 10:33 Case Management Note by Lila Black/Rajani PATIENT THIS AM- HE CONTINUES TO DENY ANY NEW NEEDS REGARDING DC AT THIS TIME- WILL CONTINUE TO FOLLOW Initialized on 10/31/20 10:33 - END OF NOTE Assessment/Plan (1) Acute kidney injury due to COVID-19 Current Visit: Yes Status: Acute Assessment & Plan: Chief Complaint Diagnosis ACUTE KIDNEY INJURY, METABOLIC ACIDOSIS Allergies Allergy/AdvReac Type Severity Reaction Status Date / Time sulfamethoxazole Allergy Verified 01/09/19 09:58 [From Bactrim] trimethoprim [From Bactrim] Allergy Verified 09/22/17 16:24 Vital Signs (Last 24 hours) Temp Pulse Resp BP Pulse Ox 11/01/20 08:00 12 11/01/20 07:50 96.9 F 82 12 94/61 93 L 11/01/20 06:39 92 L 11/01/20 05:45 66 22 93 L 11/01/20 04:00 16 11/01/20 03:43 98.5 F 60 20 84/42 94 L 11/01/20 01:49 65 16 94 L 11/01/20 01:47 16 11/01/20 00:00 97.7 F 76 15 145/48 95 10/31/20 22:00 62 18 96 10/31/20 20:00 66 10/31/20 19:38 98.0 F 86 15 103/49 95 10/31/20 19:21 95 10/31/20 18:00 61 12 99 10/31/20 16:00 98.0 F 61 16 101/53 96 10/31/20 14:00 72 20 96 10/31/20 12:00 20 10/31/20 11:52 97.6 F 66 16 97/43 96 10/31/20 10:00 72 18 96 Home Medications Medication Instructions Recorded Confirmed Last Taken Type Cholestyramine Light 4 gm 2 gm PO BID 10/29/20 10/29/20 Unknown History [QUESTRAN Light 4 GM Packet] Current Medications Generic Name Dose Route Start Last Admin Trade Name Freq PRN Reason Stop Dose Admin Hydrocodone Bitart/Acetaminophen 1 tab 10/29/20 17:33 [place] 5/325 Mg PO 11/03/20 17:32 Q6HPRN PRN PAIN Cholestyramine Resin 2 gm 10/29/20 22:00 10/31/20 21:02 Questran Light 4 Gm Packet PO 11/28/20 21:59 2 gm BID TUNG Administration Enoxaparin Sodium 40 mg 10/30/20 10:00 10/31/20 10:38 Enoxaparin Sodium SQ 11/29/20 09:59 40 mg DAILY TUNG Administration Folic Acid 1 mg 10/29/20 22:00 10/31/20 21:01 Folate 1 Mg PO 11/28/20 21:59 1 mg QHS TUNG Administration Gabapentin 600 mg 10/29/20 22:00 10/31/20 21:01 Neurontin 300 Mg PO 11/28/20 21:59 600 mg QHS TUNG Administration Sodium Bicarbonate 150 meq/ 1,150 mls @ 100 mls/hr 10/30/20 18:30 10/31/20 20:15 Dextrose IV 11/29/20 18:29 100 mls/hr .[id number] TUNG 100 mls/hr Administration Bethanechol 50mg 1 each 10/29/20 22:00 10/31/20 21:01 Tablet PO 11/28/20 21:59 1 each TID TUNG Administration Tamsulosin HCl 0.4 mg 10/29/20 22:00 10/31/20 21:01 Flomax 0.4 Mg PO 11/28/20 21:59 0.4 mg QHS TUNG Administration Discontinued Medications Generic Name Dose Route Start Last Admin Trade Name Freq PRN Reason Stop Dose Admin Lactated Ringer's 1,000 mls @ 75 mls/hr 10/29/20 18:00 10/30/20 05:47 Lactated Ringers IV 11/28/20 17:59 75 mls/hr .[id number] TUNG Administration Dextrose Confirm 10/30/20 18:35 Dextrose 5%/Water Iv Soln. 1000 Ml Administered 10/30/20 18:36 Dose 1,000 mls @ ud IV .STK-MED ONE Dextrose Confirm 10/31/20 04:57 Dextrose 5%/Water Iv Soln. 1000 Ml Administered 10/31/20 04:58 Dose 1,000 mls @ ud IV .STK-MED ONE Non-Formulary Medication 50 mg 10/29/20 22:00 Bethanechol Chloride [Urecholine] PO 11/28/20 21:59 TID TUNG Sodium Bicarbonate Confirm 10/30/20 18:34 Sodium Bicarbonate 50 Meq/50 Ml Abboject Administered 10/30/20 18:35 Dose 100 meq IV .STK-MED ONE Sodium Bicarbonate Confirm 10/30/20 18:36 Sodium Bicarbonate 50 Meq/50 Ml Vial Administered 10/30/20 18:37 Dose 50 meq .ROUTE .STK-MED ONE Sodium Bicarbonate Confirm 10/31/20 04:56 Sodium Bicarbonate 50 Meq/50 Ml Abboject Administered 10/31/20 04:57 Dose 50 meq IV .STK-MED ONE Intake & Output (Last 24 hours) 10/29/20 10/30/20 10/31/20 11/01/20 11:59 11:59 11:59 11:59 Intake Total 1163 4467 3648 Output Total 525 1900 2000 Balance 638 2567 1648 Weight 61.1 kg 61.3 kg Laboratory Results (Last 24 hours) 11/01/20 11/01/20 05:05 05:05 WBC 9.0 RBC 3.83 L Hgb 11.1 L Hct 34.4 L MCV 89.8 MCH 29.0 MCHC 32.3 RDW 13.4 Plt Count 200 MPV 11.1 H Sodium 136 L Potassium 3.5 Chloride 100 Carbon Dioxide 28 Anion Gap 11.1 BUN 46 H Creatinine 2.10 H Estimated GFR 32.3 Glucose 68 L Calcium 7.3 L Magnesium 1.3 L Total Bilirubin 0.10 L AST 34 ALT 14 Alkaline Phosphatase 46 Serum Total Protein 5.9 L Albumin 3.4 L Orders (Last 24 hours) Category Date Time Status BLADDER [US] Routine Exams 10/31/20 08:00 Completed CBC AM.LAB Lab 11/01/20 05:05 Completed CBC AM.LAB Lab 11/02/20 04:00 Ordered CMP AM.LAB Lab 11/01/20 05:05 Completed CMP AM.LAB Lab 11/02/20 04:00 Ordered MAG [MAGNESIUM] AM.LAB Lab 11/01/20 05:05 Completed MAG [MAGNESIUM] AM.LAB Lab 11/02/20 04:00 Ordered Patient Care Notes (Last 24 hours) 11/01/20 03:45 LICENSING OFFICER Note by Ivette Devine RN Sonam aware of pts BP being 82/42 Initialized on 11/01/20 03:45 - END OF NOTE 10/31/20 12:06 Case Management Note by Lila Black S/W APS TODAY- THEY ARE GETTING AHOLD OF THE OFFICE TO GET PATIENT'S FINANCIAL INFORMATION Initialized on 10/31/20 12:06 - END OF NOTE 10/31/20 10:33 Case Management Note by Lila Black/Rajani PATIENT THIS AM- HE CONTINUES TO DENY ANY NEW NEEDS REGARDING DC AT THIS TIME- WILL CONTINUE TO FOLLOW Initialized on 10/31/20 10:33 - END OF NOTE Code(s): U07.1 - COVID-19; N17.9 - ACUTE KIDNEY FAILURE, UNSPECIFIED (2) Lab test positive for detection of COVID-19 virus Current Visit: Yes Status: Acute Code(s): U07.1 - COVID-19 (3) Renal failure, chronic Current Visit: Yes Status: Chronic Qualifiers: Chronic kidney disease stage: stage 4 (severe) Qualified Code(s): N18.4 - Chronic kidney disease, stage 4 (severe)
[2020-11-01] MEDS: Sodium Bicarbonate 50 MEQ/50 ML VIAL*** 150 MEQ in Dextrose 5%/Water IV Soln. 1000 ML 1... IV SCH (08:36)
[2020-11-01] MEDS: QUESTRAN Light 4 GM Packet PO SCH (09:04)
[2020-11-01] MEDS: NON-FORMULARY ITEM PO SCH (09:04)
[2020-11-01] MEDS: ENOXAPARIN SODIUM SQ SCH (09:05)
[2020-11-01 10:01] VITALS: PULSE 112; O2SAT 95
== END 2020-11-01 14:50 | disposition home or self-care (01) | DRG 178 ==
LOC: MED SURG 15:40 → OBSVTOIN 10-30 17:55
PROVIDERS: ADMIT General Practice; ATTEND General Practice
DX: U07.1 COVID-19 (principal); N17.9 Acute kidney failure, unspecified; N18.4 Chronic kidney disease, stage 4 (severe); E87.2 Acidosis; R06.02 Shortness of breath; Z20.822 Contact with and (suspected) exposure to COVID-19; R33.9 Retention of urine, unspecified; E87.5 Hyperkalemia; Z79.899 Other long term (current) drug therapy; E86.0 Dehydration
CPT/HCPCS: 36415; 71045; 76705; 80053; 83036; 83735; 83880; 84484; 85025; 85027; 85379; 85610; 85730; 93268; 94762; G0378; U0003; J1650; A9270-GY

== ENCOUNTER 2022-10-24 20:44 | Observation (INO) | payer MEDICARE, BC ==
[2022-10-24] MEDS ORDERED: Zofran 4 MG/2 ML VIAL IV ONE (21:22)
[2022-10-24] MEDS ORDERED: Sodium Chloride 0.9% 500 ML 500 ML IV ONE ×2 (21:22→21:37)
[2022-10-24] MEDS ORDERED: MORPHINE SULFATE 4 MG INJ IV ONE ×2 (21:22→23:16)
[2022-10-24 21:32] LABS: Absolute Neutrophil Ct (ANC) 6.63 x10^3/uL (1.4-6.9); Basophil (Absolute #) 0.08 x10^3/uL (0-0.4); Eosinophil % 2.7 % (0.00-5.0); Eosinophil (Absolute #) 0.22 x10^3/uL (0-0.5); Hematocrit 43.6 % (42-50); Hemoglobin 13.7 g/dL (12.5-18.0); IMMATURE GRAN # 0.02 x10^3u/L (0.00-0.03); IMMATURE GRAN % 0.2 % (0.00-0.4); Lymphocyte (Absolute #) 0.67 x10^3/uL (1.0-4.6); Lymphocytes % 8.1 % (24.0-44.0); Mean Cell Volume 96.2 fL (78-100); Mean Corpuscular Hemoglobin 30.2 pg (26-32); Mean Corpuscular Hgb Concent. 31.4 g/dL (32-36); Mean Platelet Volume 11.7 fL (7.5-11.0); Monocyte (Absolute #) 0.63 x10^3/uL (0.0-1.3); Monocytes % 7.6 % (0.0-12.0); Neutrophil % 80.4 % (36.0-66.0); Platelet Count 215 x10^3/uL (150-450); Red Blood Count 4.53 x10^6/uL (4.1-5.6); Red Cell Distribution Width 14.8 % (11.5-14.0); White Blood Count 8.3 x10^3/uL (4.0-10.5)
--- NOTE | 2022-10-24 21:34 | ERPHSYRPT ---
- History of Present Illness Time Seen by Provider: 10/24/22 20:47 Historian: patient Exam Limitations: no limitations Patient Subjective Stated Complaint: pt states that he ate a plate of spaghetti and 2 pieces of bread at 1600 then at 1630 started having bilat lower abdominal cramping that comes and goes and is rated 7/10 at max at with constant aching when cramping is gone. 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 states he has had several revision and stoma moved from side to side. he reports "I almost because I blew out the back of it". Triage Nursing Assessment: pt ambulated independently to room 6 with slow steady gait after standing on scales for weight acquisition. pt is alert and oriented times three, [place], able to speak in complete sentences, able to move all extremities, and is with resp even and unlabored. right lower abd ostomy with nonopaque appliance prohibiting visualization of contents but pt states that it is generally mostly liquid/ soft and reports no change this evening. denies nausea, vomiting, difficulty with urination. abd soft nontender and nondistended. Physician History: 82 years old male with history of hypertension, diabetes mellitus, permanent ostomy presented in the ER with chief complaint of abdominal cramping after he ate spaghetti's around 4:30 PM. Patient reports moderate intensity cramping without any significant aggravating or relieving factors. Reports associated nausea but no vomiting. Patient reports having similar symptoms in the past with obstruction. Allergies/Adverse Reactions: sulfamethoxazole [From Bactrim] Allergy (Verified 10/24/22 20:50) trimethoprim [From Bactrim] Allergy (Verified 10/24/22 20:50) Home Medications: Bethanechol Chloride [Urecholine] 1.5 tab PO TID 07/30/13 [History] Tamsulosin HCl 0.4 mg [Flomax 0.4 MG] 0.4 mg PO QHS 07/30/13 [History] Folic Acid 1 mg PO QHS 10/04/14 [History] Gabapentin 600 mg PO QHS 04/12/15 [History] Sodium Bicarbonate 1 tab PO HS 10/24/22 [History] Hx Tetanus, Diphtheria Vaccination/Date Given: No Hx Influenza Vaccination/Date Given: Yes Hx Pneumococcal Vaccination/Date Given: Yes Immunizations Up to Date: No Travel Risk - International Travel Have you traveled outside of the country in past 3 weeks: No - Coronavirus Screening Are you exhibiting any of the following symptoms?: No Close contact with a COVID-19 positive Pt in past 14-21 Days: No - Vaccine Status Have you recieved a Covid-19 vaccination: Yes Dairy Clerk: Unknown - Vaccination Dates Dates if Unknown: Apr 2020 - Review of Systems Constitutional: No Symptoms Eyes: No Symptoms Ears, Nose, & Throat: No Symptoms Respiratory: No Symptoms Cardiac: No Symptoms Abdominal/Gastrointestinal: Abdominal Pain, Nausea Genitourinary Symptoms: No Symptoms Musculoskeletal: Arthralgias Skin: No Symptoms Neurological: No Symptoms Psychological: No Symptoms Endocrine: No Symptoms Hematologic/Lymphatic: No Symptoms - Past Medical History Pertinent Past Medical History: Yes Neurological History: No Pertinent History, Peripheral Neuropathy ENT History: No Pertinent History Cardiac History: No Pertinent History Respiratory History: No Pertinent History Endocrine Medical History: No Pertinent History Musculoskeletal History: No Pertinent History GI Medical History: Colitis, Other History: Renal Disease, Other Psycho-Social History: No Pertinent History Male Reproductive Disorders: No Pertinent History Other Medical History: kidneys function at 33%. 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 - Past Surgical History Past Surgical History: Yes Neuro Surgical History: No Pertinent History Cardiac: No Pertinent History Respiratory: No Pertinent History Gastrointestinal: Colon Resection Genitourinary: No Pertinent History Musculoskeletal: Other Male Surgical History: No Pertinent History Other Surgical History: ileostomy, R rotator cuff,R knee surgery, colon resection x2 - Social History Smoking Status: Current every day smoker How long have you smoked: 60 years Exposure to second hand smoke: No Drug Use: none Patient Lives Alone: No - Nursing Vital Signs Nursing Vital Signs: Initial Vital Signs Temperature 97.5 F 10/24/22 20:51 Pulse Rate 87 10/24/22 20:51 Respiratory Rate 16 10/24/22 20:51 Blood Pressure 121/81 10/24/22 20:51 O2 Sat by Pulse Oximetry 98 10/24/22 20:51 Pain Scale Pain Intensity 4 - Physical Exam General Appearance: no apparent distress, alert Eye Exam: PERRL/EOMI, eyes nml inspection Ears, Nose, Throat Exam: normal ENT inspection, TMs normal, pharynx normal, moist mucous membranes Neck Exam: normal inspection, non-tender, supple, full range of motion Respiratory Exam: normal breath sounds, lungs clear Cardiovascular Exam: regular rate/rhythm, normal heart sounds Gastrointestinal/Abdomen Exam: soft, tenderness (Generalized), No normal bowel sounds (Hyperactive) Back Exam: normal inspection, normal range of motion Extremity Exam: normal inspection, normal range of motion Neurologic Exam: alert, oriented x 3, cooperative Skin Exam: normal color, warm SpO2 Interpretation: normal SpO2: 98 O2 Delivery: Room Air Ordered Tests: Active Orders 24 hr Category Date Time Status IV Insertion STAT Care 10/24/22 21:20 Active NPO (ED) STAT Care 10/24/22 21:20 Active ABDOMEN AND PELVIS W/0 CONTRAS [CT] Stat Exams 10/24/22 21:21 Completed BNPII [NT PRO BNPII] Stat Lab 10/24/22 22:00 Completed CBC W DIFF Stat Lab 10/24/22 21:25 Completed CMP Stat Lab 10/24/22 21:25 Completed LIPASE Stat Lab 10/24/22 21:25 Completed Lactic Acid Stat Lab 10/24/22 21:35 Completed UA W/RFX UR CULTURE Stat Lab 10/24/22 22:50 Completed Medication Summary Discontinued Medications Generic Name Dose Route Start Last Admin Trade Name Freq PRN Reason Stop Dose Admin Sodium Chloride 500 mls @ 500 mls/hr 10/24/22 21:22 10/24/22 22:38 Sodium Chloride 0.9% 500 Ml IV 10/24/22 22:21 Infused .Q1H ONE Infusion Sodium Chloride Confirm 10/24/22 21:37 Sodium Chloride 0.9% 500 Ml Administered 10/24/22 21:38 Dose 500 mls @ ud IV .STK-MED ONE Lidocaine HCl Confirm 10/24/22 22:56 Lidocaine Hcl 2% Viscous 15 Ml Udcup Administered 10/24/22 22:57 Dose 15 ml .ROUTE .STK-MED ONE Morphine Sulfate 4 mg 10/24/22 21:22 10/24/22 21:41 Morphine Sulfate 4 Mg/Ml Injection IV 10/24/22 21:23 4 mg STAT ONE Administration Morphine Sulfate Confirm 10/24/22 21:36 Morphine Sulfate 4 Mg/Ml Injection Administered 10/24/22 21:37 Dose 4 mg .ROUTE .STK-MED ONE Ondansetron HCl 4 mg 10/24/22 21:22 10/24/22 21:41 Ondansetron Hcl 4 Mg/2 Ml Vial IV 10/24/22 21:23 4 mg STAT ONE Administration Ondansetron HCl Confirm 10/24/22 21:36 Ondansetron Hcl 4 Mg/2 Ml Vial Administered 10/24/22 21:37 Dose 4 mg .ROUTE .STK-MED ONE Lab/Rad Data: Laboratory Result Diagrams 10/24/22 21:25 10/24/22 21:25 Laboratory Results 10/24/22 10/24/22 10/24/22 Range/Units 22:50 22:00 21:35 WBC (4.0-10.5) x10^3/uL RBC (4.1-5.6) x10^6/uL Hgb (12.5-18.0) g/dL Hct (42-50) % MCV (78-100) fL MCH (26-32) pg MCHC (32-36) g/dL RDW (11.5-14.0) % Plt Count (150-450) x10^3/uL MPV (7.5-11.0) fL Gran % (36.0-66.0) % Immature Gran % (Auto) (0.00-0.4) % Nucleat RBC Rel Count (0.00-0.1) % Eos # (Auto) (0-0.5) x10^3/uL Immature Gran # (Auto) (0.00-0.03) x10^3u/L Absolute Lymphs (auto) (1.0-4.6) x10^3/uL Absolute Monos (auto) (0.0-1.3) x10^3/uL Absolute Nucleated RBC (0.00-0.01) x10^3u/L Lymphocytes % (24.0-44.0) % Monocytes % (0.0-12.0) % Eosinophils % (0.00-5.0) % Basophils % (0.0-0.4) % Absolute Granulocytes (1.4-6.9) x10^3/uL Basophils # (0-0.4) x10^3/uL Sodium (137-145) mmol/L Potassium (3.5-5.1) mmol/L Chloride (98-107) mmol/L Carbon Dioxide (22-30) mmol/L Anion Gap (5-15) MEQ/L BUN (9-20) mg/dL Creatinine (0.66-1.25) mg/dL Estimated GFR ML/MIN Glucose (74-106) mg/dL Lactic Acid 1.2 (0.4-2.0) Calcium (8.4-10.2) mg/dL Total Bilirubin (0.2-1.3) mg/dL AST (17-59) U/L ALT (0-50) U/L Alkaline Phosphatase (38-126) U/L NT-Pro-B Natriuret Pep 08437 (<300) pg/mL Serum Total Protein (6.3-8.2) g/dL Albumin (3.5-5.0) g/dL Lipase (23-300) U/L Urine Color Yellow (Yellow) Urine Appearance Clear (Clear) Urine pH 5.5 (4.6-8.0) Ur Specific Excel 1.020 (1.005-1.030) Urine Protein 30 (Negative) Urine Glucose (UA) Negative (Negative) mg/dL Urine Ketones Negative (Negative) Urine Blood Negative (Negative) Urine Nitrite Negative (Negative) Urine Bilirubin Negative (Negative) Urine Urobilinogen 0.2 (0.2) mg/dL Ur Leukocyte Esterase Negative (Negative) U Hyaline Cast (Auto) 11-20 (0-2) /LPF Urine Microscopic RBC 0-2 (0-5) /HPF Urine Microscopic WBC 0-2 (0-5) /HPF Ur Epithelial Cells None Seen (None Seen) /HPF Urine Bacteria None Seen (None Seen) /HPF Urine Culture Reflexed NO (NO) 10/24/22 10/24/22 Range/Units 21:25 21:25 WBC 8.3 (4.0-10.5) x10^3/uL RBC 4.53 (4.1-5.6) x10^6/uL Hgb 13.7 (12.5-18.0) g/dL Hct 43.6 (42-50) % MCV 96.2 (78-100) fL MCH 30.2 (26-32) pg MCHC 31.4 L (32-36) g/dL RDW 14.8 H (11.5-14.0) % Plt Count 215 (150-450) x10^3/uL MPV 11.7 H (7.5-11.0) fL Gran % 80.4 H (36.0-66.0) % Immature Gran % (Auto) 0.2 (0.00-0.4) % Nucleat RBC Rel Count 0.0 (0.00-0.1) % Eos # (Auto) 0.22 (0-0.5) x10^3/uL Immature Gran # (Auto) 0.02 (0.00-0.03) x10^3u/L Absolute Lymphs (auto) 0.67 L (1.0-4.6) x10^3/uL Absolute Monos (auto) 0.63 (0.0-1.3) x10^3/uL Absolute Nucleated RBC 0.00 (0.00-0.01) x10^3u/L Lymphocytes % 8.1 L (24.0-44.0) % Monocytes % 7.6 (0.0-12.0) % Eosinophils % 2.7 (0.00-5.0) % Basophils % 1.0 (0.0-0.4) % Absolute Granulocytes 6.63 (1.4-6.9) x10^3/uL Basophils # 0.08 (0-0.4) x10^3/uL Sodium 137 (137-145) mmol/L Potassium 5.2 H (3.5-5.1) mmol/L Chloride 109 H (98-107) mmol/L Carbon Dioxide 15 L* (22-30) mmol/L Anion Gap 19.5 H (5-15) MEQ/L BUN 38 H (9-20) mg/dL Creatinine 2.20 H (0.66-1.25) mg/dL Estimated GFR 30.5 ML/MIN Glucose 111 H (74-106) mg/dL Lactic Acid (0.4-2.0) Calcium 9.4 (8.4-10.2) mg/dL Total Bilirubin 0.60 (0.2-1.3) mg/dL AST 38 (17-59) U/L ALT 27 (0-50) U/L Alkaline Phosphatase 86 (38-126) U/L NT-Pro-B Natriuret Pep (<300) pg/mL Serum Total Protein 7.4 (6.3-8.2) g/dL Albumin 4.5 (3.5-5.0) g/dL Lipase 684 H (23-300) U/L Urine Color (Yellow) Urine Appearance (Clear) Urine pH (4.6-8.0) Ur Specific Excel (1.005-1.030) Urine Protein (Negative) Urine Glucose (UA) (Negative) mg/dL Urine Ketones (Negative) Urine Blood (Negative) Urine Nitrite (Negative) Urine Bilirubin (Negative) Urine Urobilinogen (0.2) mg/dL Ur Leukocyte Esterase (Negative) U Hyaline Cast (Auto) (0-2) /LPF Urine Microscopic RBC (0-5) /HPF Urine Microscopic WBC (0-5) /HPF Ur Epithelial Cells (None Seen) /HPF Urine Bacteria (None Seen) /HPF Urine Culture Reflexed (NO) - Progress Progress: improved Progress Note: 10/24/22 21:34 82 years old male with history of hypertension, diabetes mellitus, permanent ostomy presented in the ER with chief complaint of abdominal cramping after he ate spaghetti's around 4:30 PM. Patient reports moderate intensity cramping without any significant aggravating or relieving factors. Reports associated nausea but no vomiting. Patient reports having similar symptoms in the past with obstruction. Abdominal exam reveals diffuse tenderness. Mild guarding. Hyperactive bowel sounds. Ostomy well in place. Will give fluids, symptomatic treatment for pain and CT abdomen pelvis along with acute abdomen labs. 10/24/22 23:10 Patient has normal white count and lactate. Bicarb of 15 and a gap of 19. Given fluids bolus. Feeling much better on reevaluation. Pain is better after morphine. I have obtained CT abdomen pelvis which showed distal small bowel obstruction with periumbilical hernia with a loop of bowel which is probably causing the obstruction. Discussed with Dr. Sona Sharma general surgery on-call, reviewed history, work-up, recommended NG tube placement and admission to hospitalist service. Discussed with , reviewed history, work-up, general surgery recommendations, agreed with admission. I have discussed the results of work-up and recommendations of general surgeon and hospitalist with patient and he agrees with admission. Patient does have CHF kind of picture wit h bilateral effusion and cardiomegaly with no known history of CHF. Patient clinically does not seem to be in CHF. We will give gentle hydration and keep him n.p.o. 10/24/22 23:[address] Samantha (At 2250) Will see patient in: hospital (observation) Counseled pt/family regarding: lab results, diagnosis, rad results Medical Desision Making - Independent Historian Additional History obtained from: Child - Discussion of managment Care discussed with:: hospitalist ( at 2300) Reviewed:: Test results Agreed on:: Treatment plan, place in obs Will see patient: in hospital - Diagnostic Testing Diagnostic test were ordered, analyzed, and reviewed by me: Yes Radiological Interpretation: Reviewed by me, Teleradiologist Report - Risk of complications The pt has a high risk of morbidity or mortality based on: Decision regarding hospitilization or escalation of hosp level of care - Departure Departure Disposition: Observation Clinical Impression: Small bowel obstruction, Urinary retention Condition: Stable Critical Care Time: No Referrals: NINO TORRES MD [Primary Care Provider] - Follow up/PCP as directed
[2022-10-24] MEDS ORDERED: Zofran 4 MG/2 ML VIAL ONE (21:36)
[2022-10-24] MEDS ORDERED: MORPHINE SULFATE 4 MG INJ ONE ×2 (21:36→23:16)
[2022-10-24 21:51] LABS: ALBUMIN 4.5 g/dL (3.5-5.0); ANION GAP 19.5 MEQ/L (5-15); BILIRUBIN,TOTAL 0.6 mg/dL (0.2-1.3); Calcium 9.4 mg/dL (8.4-10.2); Creatinine 1 2.2 mg/dL (0.66-1.25); EST GLOMERULAR FILTRATION RATE 30.5 ML/MIN; Potassium 5.2 mmol/L (3.5-5.1); Total Protein 7.4 g/dL (6.3-8.2)
--- NOTE | 2022-10-24 22:13 | XRAY ---
Indication: Abdomen pain and cramping. Obstruction. Multiple contiguous axial images obtained through the abdomen and pelvis without contrast. Comparison: July 30, 2013 Lung bases demonstrates new cardiomegaly with small right and tiny left effusions. Stable small hiatal hernia. Stomach again mildly fluid distended. There remains abnormal fluid distended bowel loops up to 3.7 cm with fluid leveling favoring obstruction. Stable umbilical hernia with a knuckle of small bowel loop, potential etiology for obstruction. Again colectomy with right lower quadrant ostomy and herniated decompressed small bowel loops. No free fluid/air. Again massively distended urinary bladder concerning for outlet obstruction versus neurogenic bladder. Stable 1.6 mm gallstone and splenic calcified granulomas. Remaining liver, pancreas, adrenal glands, kidneys, and ureters are unremarkable for noncontrast exam. Again mild scattered aortoiliac calcifications without AAA. Osseous structures intact again with mild degenerative changes throughout the spine and mild levoscoliosis. Progressive worsening advanced left hip and moderate right hip degenerative arthropathy. Impression: 1. Stable total colectomy with right lower quadrant ostomy. 2. Again distal small bowel obstruction. Suspect small periumbilical ventral hernia with herniated bowel loop as cause. 3. Again massive distended urinary bladder. Rule out outlet obstruction versus neurogenic bladder. 4. New cardiomegaly with bibasilar effusions, right greater than left. Rule out cardiac decompensation/CHF. Superimposed pneumonia not completely excluded. 5. Chronic findings including cholelithiasis, arteriosclerotic disease, chronic bony findings, and old granulomatous disease.
[2022-10-24] MEDS ORDERED: XYLOCAINE VISCOUS 2% 15 ML CUP ONE (22:56)
[2022-10-24 23:00] LABS: Appearance Clear (Clear); Bacteria None Seen /HPF (None Seen); Bilirubin Negative (Negative); Blood Negative (Negative); Epithelial Cells None Seen /HPF (None Seen); Glucose, Urine Negative (Negative); Ketones Negative (Negative); Leukocyte Esterase Negative (Negative); Nitrite Negative (Negative); Ph 5.5 (4.6-8.0); Protein,Urine Dip 30 (Negative); RBC 0-2 /HPF (0-5); Urobilinogen 0.2 mg/dL (0.2); WBC 0-2 /HPF (0-5)
[2022-10-24 23:01] LABS: ADD URINE CULTURE? NO (NO)
--- NOTE | 2022-10-24 23:27 | PCM.HP ---
History of Present Illness - Chief Complaint Chief Complaint: abd pain History of Present Illness: is a 82 year old male with hx of UC with permanent ostomy since age 16, CKD 3, chronic acidosis, and BPH presented tonight with c/o abd pain after eating dinner at 4pm. Pain came on 30 mins thereafter. No diarrhea, nausea, vomiting. He has had a few ostomy revisions over the years. Says he has had similar experiences in the past when eats too much and gets abd pain. Denies fever, chills. In ER, he is in NAD, no abd distention. Abd CT showed distal SBO. General surgery, Dr Moreira, who will see pt in AM. Plan NGT, NPO, and IVF - Review of Systems Constitutional: No Symptoms Eyes: No Symptoms Ears, Nose, & Throat: No Symptoms Respiratory: No Symptoms Cardiac: No Symptoms Abdominal/Gastrointestinal: Abdominal Pain Genitourinary Symptoms: No Symptoms Musculoskeletal: No Symptoms Skin: No Symptoms Neurological: No Symptoms Psychological: No Symptoms Endocrine: No Symptoms Hematologic/Lymphatic: No Symptoms Immunological/Allergic: No Symptoms Medications & Allergies Home Medications: Home Medication List Bethanechol Chloride [Urecholine] 1.5 tab PO TID 07/30/13 [History Confirmed 10/24/22] Tamsulosin HCl 0.4 mg [Flomax 0.4 MG] 0.4 mg PO QHS 07/30/13 [History Co nfirmed 10/24/22] Folic Acid 1 mg PO QHS 10/04/14 [History Confirmed 10/24/22] Gabapentin 600 mg PO QHS 04/12/15 [History Confirmed 10/24/22] Sodium Bicarbonate 1 tab PO HS 10/24/22 [History Confirmed 10/24/22] Allergies/Adverse Reactions: Allergies Allergy/AdvReac Type Severity Reaction Status Date / Time sulfamethoxazole Allergy Verified 10/24/22 20:50 [From Bactrim] trimethoprim [From Bactrim] Allergy Verified 10/24/22 20:50 - Past Medical History Past Medical History: Yes Neurological History: No Pertinent History, Peripheral Neuropathy ENT History: No Pertinent History Cardiac History: No Pertinent History Respiratory History: No Pertinent History Endocrine Medical History: No Pertinent History Musculoskelatal History: No Pertinent History GI Medical History: Colitis, Other History: Renal Disease, Other Pyscho-Social History: No Pertinent History Male Reproductive Disorders: No Pertinent History Comment: kidneys function at 33%. 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 - Past Surgical History Past Surgical History: Yes Neuro Surgical History: No Pertinent History Cardiac History: No Pertinent History Respiratory Surgery: No Pertinent History GI Surgical History: Colon Resection Genitourinary Surgical Hx: No Pertinent History Musculskeletal Surgical Hx: Other Male Surgical History: No Pertinent History Other Surgical History: ileostomy, R rotator cuff,R knee surgery, colon resection x2 - Social History Smoking Status: Current every day smoker How long have you smoked: 60 years Exposure to second hand smoke: No Alcohol: Rarely Drug Use: none - Physical Exam Vital Signs: Vital Signs - 24 hr Temp Pulse Resp BP BP Pulse Ox 10/24/22 23:13 98 10/24/22 22:00 68 18 112/70 98 10/24/22 21:00 76 16 131/85 99 10/24/22 20:51 97.5 F 87 16 121/81 98 General Appearance: no apparent distress Neurologic Exam: alert, oriented x 3, cooperative Eye Exam: PERRL/EOMI Ears, Nose, Throat Exam: normal ENT inspection Neck Exam: normal inspection, supple Respiratory Exam: normal breath sounds, lungs clear Cardiovascular Exam: regular rate/rhythm, normal heart sounds Gastrointestinal/Abdomen Exam: soft, normal bowel sounds, tenderness Rectal Exam: deferred Extremity Exam: normal inspection, normal range of motion Skin Exam: normal color, warm, dry Results - Labs Lab/Micro Results: Lab Results-Last 24 Hours 10/24/22 10/24/22 10/24/22 Range/Units 21:25 21:25 21:35 WBC 8.3 (4.0-10.5) x10^3/uL RBC 4.53 (4.1-5.6) x10^6/uL Hgb 13.7 (12.5-18.0) g/dL Hct 43.6 (42-50) % MCV 96.2 (78-100) fL MCH 30.2 (26-32) pg MCHC 31.4 L (32-36) g/dL RDW 14.8 H (11.5-14.0) % Plt Count 215 (150-450) x10^3/uL MPV 11.7 H (7.5-11.0) fL Gran % 80.4 H (36.0-66.0) % Immature Gran % (Auto) 0.2 (0.00-0.4) % Nucleat RBC Rel Count 0.0 (0.00-0.1) % Eos # (Auto) 0.22 (0-0.5) x10^3/uL Immature Gran # (Auto) 0.02 (0.00-0.03) x10^3u/L Absolute Lymphs (auto) 0.67 L (1.0-4.6) x10^3/uL Absolute Monos (auto) 0.63 (0.0-1.3) x10^3/uL Absolute Nucleated RBC 0.00 (0.00-0.01) x10^3u/L Lymphocytes % 8.1 L (24.0-44.0) % Monocytes % 7.6 (0.0-12.0) % Eosinophils % 2.7 (0.00-5.0) % Basophils % 1.0 (0.0-0.4) % Absolute Granulocytes 6.63 (1.4-6.9) x10^3/uL Basophils # 0.08 (0-0.4) x10^3/uL Sodium 137 (137-145) mmol/L Potassium 5.2 H (3.5-5.1) mmol/L Chloride 109 H (98-107) mmol/L Carbon Dioxide 15 L* (22-30) mmol/L Anion Gap 19.5 H (5-15) MEQ/L BUN 38 H (9-20) mg/dL Creatinine 2.20 H (0.66-1.25) mg/dL Estimated GFR 30.5 ML/MIN Glucose 111 H (74-106) mg/dL Lactic Acid 1.2 (0.4-2.0) Calcium 9.4 (8.4-10.2) mg/dL Total Bilirubin 0.60 (0.2-1.3) mg/dL AST 38 (17-59) U/L ALT 27 (0-50) U/L Alkaline Phosphatase 86 (38-126) U/L NT-Pro-B Natriuret Pep (<300) pg/mL Serum Total Protein 7.4 (6.3-8.2) g/dL Albumin 4.5 (3.5-5.0) g/dL Lipase 684 H (23-300) U/L Urine Color (Yellow) Urine Appearance (Clear) Urine pH (4.6-8.0) Ur Specific [place] (1.005-1.030) Urine Protein (Negative) Urine Glucose (UA) (Negative) mg/dL Urine Ketones (Negative) Urine Blood (Negative) Urine Nitrite (Negative) Urine Bilirubin (Negative) Urine Urobilinogen (0.2) mg/dL Ur Leukocyte Esterase (Negative) U Hyaline Cast (Auto) (0-2) /LPF Urine Microscopic RBC (0-5) /HPF Urine Microscopic WBC (0-5) /HPF Ur Epithelial Cells (None Seen) /HPF Urine Bacteria (None Seen) /HPF Urine Culture Reflexed (NO) 10/24/22 10/24/22 Range/Units 22:00 22:50 WBC (4.0-10.5) x10^3/uL RBC (4.1-5.6) x10^6/uL Hgb (12.5-18.0) g/dL Hct (42-50) % MCV (78-100) fL MCH (26-32) pg MCHC (32-36) g/dL RDW (11.5-14.0) % Plt Count (150-450) x10^3/uL MPV (7.5-11.0) fL Gran % (36.0-66.0) % Immature Gran % (Auto) (0.00-0.4) % Nucleat RBC Rel Count (0.00-0.1) % Eos # (Auto) (0-0.5) x10^3/uL Immature Gran # (Auto) (0.00-0.03) x10^3u/L Absolute Lymphs (auto) (1.0-4.6) x10^3/uL Absolute Monos (auto) (0.0-1.3) x10^3/uL Absolute Nucleated RBC (0.00-0.01) x10^3u/L Lymphocytes % (24.0-44.0) % Monocytes % (0.0-12.0) % Eosinophils % (0.00-5.0) % Basophils % (0.0-0.4) % Absolute Granulocytes (1.4-6.9) x10^3/uL Basophils # (0-0.4) x10^3/uL Sodium (137-145) mmol/L Potassium (3.5-5.1) mmol/L Chloride (98-107) mmol/L Carbon Dioxide (22-30) mmol/L Anion Gap (5-15) MEQ/L BUN (9-20) mg/dL Creatinine (0.66-1.25) mg/dL Estimated GFR ML/MIN Glucose (74-106) mg/dL Lactic Acid (0.4-2.0) Calcium (8.4-10.2) mg/dL Total Bilirubin (0.2-1.3) mg/dL AST (17-59) U/L ALT (0-50) U/L Alkaline Phosphatase (38-126) U/L NT-Pro-B Natriuret Pep 15689 (<300) pg/mL Serum Total Protein (6.3-8.2) g/dL Albumin (3.5-5.0) g/dL Lipase (23-300) U/L Urine Color Yellow (Yellow) Urine Appearance Clear (Clear) Urine pH 5.5 (4.6-8.0) Ur Specific [place] 1.020 (1.005-1.030) Urine Protein 30 (Negative) Urine Glucose (UA) Negative (Negative) mg/dL Urine Ketones Negative (Negative) Urine Blood Negative (Negative) Urine Nitrite Negative (Negative) Urine Bilirubin Negative (Negative) Urine Urobilinogen 0.2 (0.2) mg/dL Ur Leukocyte Esterase Negative (Negative) U Hyaline Cast (Auto) 11-20 (0-2) /LPF Urine Microscopic RBC 0-2 (0-5) /HPF Urine Microscopic WBC 0-2 (0-5) /HPF Ur Epithelial Cells None Seen (None Seen) /HPF Urine Bacteria None Seen (None Seen) /HPF Urine Culture Reflexed NO (NO) - Radiology Impressions Radiology Exams & Impressions: Radiology Procedures Category Date Time Status ABDOMEN AND PELVIS W/0 CONTRAS [CT] Stat Exams 10/24/22 21:21 Completed Assessment/Plan (1) Small bowel obstruction Current Visit: Yes Status: Acute Assessment & Plan: Hx of UC and ostomy. CT abd shows SBO. NPO, NGT to suction. IVF. General Surgery consulted, Dr Moreira, on and will see pt. Code(s): K56.609 - UNSP INTESTNL OBST, UNSP TO PARTIAL VERSUS COMPLETE OBST (2) Renal failure, chronic Current Visit: No Status: Chronic Qualifiers: Chronic kidney disease stage: stage 4 (severe) Qualified Code(s): N18.4 - Chronic kidney disease, stage 4 (severe) Assessment & Plan: Has hx of CKD. Baseline eGFR reportedly is around 33. GFR is 30.5 at this time, so not far off from his baseline. Avoid further nephrotoxins - IV contrast, NSAIDs, hypotension. Dose all meds accordingly BNP noted to be 14,000. CT shows BL basilar effusion and cardiomegaly - per ra diology report. But pt has no overt sign of CHF. He is getting IVF for NPO status, but will run it cautiously at 70ml/hr. He is not septic on arrival, so no need for aggressive fluid either (3) Acidosis, metabolic Current Visit: Yes Status: Acute Assessment & Plan: Has a hx of this, takes bicarb at home. HCO3 15. He is NPO due to SBO. Plan IVF Code(s): E87.20 - ACIDOSIS, UNSPECIFIED (4) Ulcerative colitis Current Visit: Yes Status: Acute Assessment & Plan: Has a hx of this and is not on any home med for this. Has ostomy creation/revisions over the years. CT did not show any inflammation, nor does pt have any symptoms to suggest an acute flare Code(s): K51.90 - ULCERATIVE COLITIS, UNSPECIFIED, WITHOUT COMPLICATIONS (5) BPH (benign prostatic hyperplasia) Current Visit: Yes Status: Acute Assessment & Plan: On Flomax at home, no acute complaint here. Once able to take oral, will resume home med Code(s): N40.0 - BENIGN PROSTATIC HYPERPLASIA WITHOUT LOWER URINRY TRACT SYMP (6) Pancreatitis Current Visit: Yes Status: Acute Assessment & Plan: Lipase 680s. May be due to lack of renal clearance. He has no hx of this. Monitor Code(s): K85.90 - ACUTE PANCREATITIS WITHOUT NECROSIS OR INFECTION, UNSP Telemedicine Encounter - Telemedicine Encounter Telemedicine Encounter: The entirety of this encounter was performed via Telemedicine" Pt gave me verbal consent to have this telemedicine visit
[2022-10-24] MEDS ORDERED: HUMALOG SQ PRN (23:39)
[2022-10-24] MEDS ORDERED: MORPHINE SULFATE 2 MG INJ IV PRN (23:44)
[2022-10-24] MEDS ORDERED: Sodium Chloride 0.9% 1000 ML 1,000 ML IV SCH (23:45)
[2022-10-24] MEDS ORDERED: Sodium Chloride 0.9% 1000 ML 1,000 ML ONE (23:53)
[2022-10-25] MEDS ORDERED: Lactated Ringers 1,000 ML IV SCH (00:01)
[2022-10-25] MEDS ORDERED: DUONEB 0.5-3 MG/3 ml Neb IH PRN (00:01)
[2022-10-25] MEDS ORDERED: MORPHINE SULFATE 2 MG INJ IV PRN (00:01)
[2022-10-25] MEDS ORDERED: Zofran 4 MG/2 ML VIAL IV PRN (00:01)
[2022-10-25] MEDS ORDERED: Sodium Chloride 0.9% 1000 ML 1,000 ML IV SCH (00:30)
[2022-10-25] MEDS ORDERED: MORPHINE SULFATE 2 MG INJ ONE (01:12)
[2022-10-25] MEDS: MORPHINE SULFATE 2 MG INJ IV PRN ×7 (03:43→23:48)
[2022-10-25 05:53] LABS: Hematocrit 42.9 % (42-50); Hemoglobin 13.5 g/dL (12.5-18.0); Mean Cell Volume 95.8 fL (78-100); Mean Corpuscular Hemoglobin 30.1 pg (26-32); Mean Corpuscular Hgb Concent. 31.5 g/dL (32-36); Mean Platelet Volume 11.2 fL (7.5-11.0); Platelet Count 193 x10^3/uL (150-450); Red Blood Count 4.48 x10^6/uL (4.1-5.6); Red Cell Distribution Width 14.8 % (11.5-14.0); White Blood Count 7.6 x10^3/uL (4.0-10.5)
[2022-10-25 06:21] LABS: BILIRUBIN,TOTAL 0.6 mg/dL (0.2-1.3); Calcium 8.7 mg/dL (8.4-10.2); Creatinine 1 2.17 mg/dL (0.66-1.25); EST GLOMERULAR FILTRATION RATE 30.9 ML/MIN; PREALBUMIN 20.92 mg/dL (17.6-36.0); Potassium 4.8 mmol/L (3.5-5.1); Total Protein 6.9 g/dL (6.3-8.2)
[2022-10-25 06:31] LABS: ANION GAP 17.8 MEQ/L (5-15)
--- NOTE | 2022-10-25 06:54 | XRAY ---
Indication: NG tube placement. Comparison: October 29, 2020 Portable chest demonstrates new NG tube traversing chest with tip in proximal stomach. Heart now enlarged. Lungs inflated and clear with a few incidental calcified granulomas. Bony thorax intact again with osteopenia and minimal dextroscoliosis.
[2022-10-25] MEDS: PROTONIX 40 MG IV IV SCH (10:19)
[2022-10-25] MEDS: HEPARIN 5000 UNITS/0.5 ML (HIGH RISK MED) SQ SCH ×2 (10:20→21:09)
[2022-10-25] MEDS: Dextrose 5%/Water IV Soln. 1000 ML 1,000 ML IV SCH (15:05)
[2022-10-26] MEDS: MORPHINE SULFATE 2 MG INJ IV PRN ×4 (04:06→21:11)
[2022-10-26 05:42] LABS: Hemoglobin 13.6 g/dL (12.5-18.0); Mean Cell Volume 97.6 fL (78-100); Mean Corpuscular Hemoglobin 30.2 pg (26-32); Mean Corpuscular Hgb Concent. 30.9 g/dL (32-36); Mean Platelet Volume 11.3 fL (7.5-11.0); Platelet Count 168 x10^3/uL (150-450); Red Blood Count 4.51 x10^6/uL (4.1-5.6); Red Cell Distribution Width 14.4 % (11.5-14.0); White Blood Count 4.3 x10^3/uL (4.0-10.5)
[2022-10-26 05:57] LABS: ANION GAP 16.2 MEQ/L (5-15); Calcium 8.5 mg/dL (8.4-10.2); Creatinine 1 2.41 mg/dL (0.66-1.25); EST GLOMERULAR FILTRATION RATE 27.4 ML/MIN; Potassium 5.2 mmol/L (3.5-5.1)
--- NOTE | 2022-10-26 07:02 | PCM.NOTE ---
Date and Time: 10/25/22 1251 Subjective Assessment: Seen by surgeon; ice chips today; not passinggas or stool; still with 2/10 abdominal pain that is crampy, not an imdiate surgical candidate due to renal function, had radical ileostomy in 1958, having some blood tinged urine since west insertion - Review of Systems Eyes: No Symptoms Ears, Nose, & Throat: No Symptoms Respiratory: No Symptoms Cardiac: No Symptoms Abdominal/Gastrointestinal: Abdominal Pain Genitourinary Symptoms: No Symptoms Musculoskeletal: No Symptoms Skin: No Symptoms Neurological: No Symptoms Objective Exam Neurologic Exam: alert, oriented x 3 Skin Exam: normal color Wound Assessment: Skin/Wound Assessment Wound/Incision Assessment Start: 10/25/22 00:57 Text: Status: Active Freq: Q6H Protocol: Document 10/26/22 02:00 MP (Rec: 10/26/22 03:22 MP [id number]) Wound/Incision Assessment Right Elbow Wound Assessment Shift Assessment Wound Type Skin Tear Wound Stage Non Pressure Wound Dressing Status Dry & Intact Drainage Amount None Primary Dressing steri strips Left Elbow Wound Assessment Shift Assessment Wound Type Skin Tear Wound Stage Non Pressure Wound Dressing Status Dry & Intact Drainage Amount None Drainage Odor None/Absent Length (cm) (cm) 7 Width (cm) (cm) 4 Depth (cm) (cm) 2 Primary Dressing window dressing Wound Photo Photo Taken No Eye Exam: PERRL Neck Exam: normal inspection Respiratory Exam: normal breath sounds Cardiovascular Exam: regular rate/rhythm, normal heart sounds Gastrointestinal/Abdomen Exam: soft OBJECTIVE DATA Vital Signs: Vital Signs - 24 hr Temp Pulse Resp BP Pulse Ox 10/26/22 03:56 97.7 F 73 16 93/58 97 10/26/22 00:00 97.8 F 72 16 118/56 90 L 10/25/22 19:52 97.8 F 76 16 95/53 90 L 10/25/22 15:55 97.9 F 73 16 106/62 97 10/25/22 11:30 97.7 F 76 16 102/56 96 Pain Assessment - Last Documented Pain Intensity 5 Pain Scale Used 0-10 Pain Scale Intake and Output: Intake & Output 10/23/22 10/24/22 10/25/22 10/26/22 11:59 11:59 11:59 11:59 Intake Total 248 1026 Output Total 2925 900 Balance -1597 126 Weight 68.719 kg Lab Results: Lab Results-Last 24 Hours 10/25/22 10/25/22 10/25/22 Range/Units 10:20 11:12 18:26 WBC (4.0-10.5) x10^3/uL RBC (4.1-5.6) x10^6/uL Hgb (12.5-18.0) g/dL Hct (42-50) % MCV (78-100) fL MCH (26-32) pg MCHC (32-36) g/dL RDW (11.5-14.0) % Plt Count (150-450) x10^3/uL MPV (7.5-11.0) fL Sodium (137-145) mmol/L Potassium (3.5-5.1) mmol/L Chloride (98-107) mmol/L Carbon Dioxide (22-30) mmol/L Anion Gap (5-15) MEQ/L BUN (9-20) mg/dL Creatinine (0.66-1.25) mg/dL Estimated GFR ML/MIN Glucose (74-106) mg/dL POC Glucometer 87 104 (74 to 106) mg/dL Hemoglobin A1c 5.83 (4.5-6.0) % Calcium (8.4-10.2) mg/dL 10/26/22 10/26/22 10/26/22 Range/Units 02:18 05:35 05:35 WBC 4.3 (4.0-10.5) x10^3/uL RBC 4.51 (4.1-5.6) x10^6/uL Hgb 13.6 (12.5-18.0) g/dL Hct 44.0 (42-50) % MCV 97.6 (78-100) fL MCH 30.2 (26-32) pg MCHC 30.9 L (32-36) g/dL RDW 14.4 H (11.5-14.0) % Plt Count 168 (150-450) x10^3/uL MPV 11.3 H (7.5-11.0) fL Sodium 137 (137-145) mmol/L Potassium 5.2 H (3.5-5.1) mmol/L Chloride 109 H (98-107) mmol/L Carbon Dioxide 18 L (22-30) mmol/L Anion Gap 16.2 H (5-15) MEQ/L BUN 46 H (9-20) mg/dL Creatinine 2.41 H (0.66-1.25) mg/dL Estimated GFR 27.4 ML/MIN Glucose 108 H (74-106) mg/dL POC Glucometer 111 H (74 to 106) mg/dL Hemoglobin A1c (4.5-6.0) % Calcium 8.5 (8.4-10.2) mg/dL Radiology Exams: Radiology Procedures Category Date Time Status ABDOMEN AND PELVIS W/0 CONTRAS [CT] Stat Exams 10/24/22 21:21 Completed CHEST 1 VIEW (PORTABLE) Stat Exams 10/24/22 23:33 Completed Assessment/Plan (1) Small bowel obstruction Current Visit: Yes Status: Acute Assessment & Plan: (1) Small bowel obstruction Current Visit: Yes Status: Acute Assessment & Plan: Hx of UC and ostomy. CT abd shows SBO. NPO, NGT to suction. IVF. General Surgery consulted, Dr Moreira, saw patient, not surgical candidate due to renal function, will reach out to surgeon and see if can advance diet if patient tolerates chips. Code(s): K56.609 - UNSP INTESTNL OBST, UNSP TO PARTIAL VERSUS COMPLETE OBST (2) Renal failure, chronic Current Visit: No Status: Chronic Qualifiers: Chronic kidney disease stage: stage 4 (severe) Qualified Code(s): N18.4 - Chronic kidney disease, stage 4 (severe) Assessment & Plan: Has hx of CKD. Baseline eGFR reportedly is around 33. GFR is 30.5 at this time, so not far off from his baseline. Avoid further nephrotoxins - IV contrast, NSAIDs, hypotension. Dose all meds accordingly BNP noted to be 14,000. CT shows BL basilar effusion and cardiomegaly - per radiology report. But pt has no overt sign of CHF. He is getting IVF for NPO status, but will run it cautiously at 70ml/hr. He is not septic on arrival, so no need for aggressive fluid either (3) Acidosis, metabolic Current Visit: Yes Status: Acute Assessment & Plan: Has a hx of this, takes bicarb at home. HCO3 15. He is NPO due to SBO. Plan IVF Code(s): E87.20 - ACIDOSIS, UNSPECIFIED (4) Ulcerative colitis Current Visit: Yes Status: Acute Assessment & Plan: Has a hx of this and is not on any home med for this. Has ostomy creation/revisions over the years. CT did not show any inflammation, nor does pt have any symptoms to suggest an acute flare Code(s): K51.90 - ULCERATIVE COLITIS, UNSPECIFIED, WITHOUT COMPLICATIONS (5) BPH (benign prostatic hyperplasia) Current Visit: Yes Status: Acute Assessment & Plan: On Flomax at home, no acute complaint here. Once able to take oral, will resume home med Code(s): N40.0 - BENIGN PROSTATIC HYPERPLASIA WITHOUT LOWER URINRY TRACT SYMP (6) Pancreatitis Current Visit: Yes Status: Acute Assessment & Plan: Lipase 680s. May be due to lack of renal clearance. He has no hx of this. Monitor Code(s): K85.90 - ACUTE PANCREATITIS WITHOUT NECROSIS OR INFECTION, UNSP Code(s): K56.609 - UNSP INTESTNL OBST, UNSP TO PARTIAL VERSUS COMPLETE OBST Telemedicine Encounter - Telemedicine Encounter Telemedicine Encounter: The entirety of this encounter was performed via Telemedicine"
--- NOTE | 2022-10-26 09:15 | PCM.NOTE ---
Date and Time: 10/26/22907 Subjective Assessment: Doing better today, more bowel sounds; no surgeon`s notes available for review - but it is unclear if surgeon wanted to suggest conservative management vs transfer for other surgical evaluation. Extensive discussion had with patient regarding option to trtansfer now to [facility]ional vs trial of NG tube clamping and ice chips - patient prefers to stay and try clamping. If does not tolerate, will initiate transfer to [facility] for surgical eval and urological eval ( Dr Cerda was planning suprapubic catheter per patient - Review of Systems Eyes: No Symptoms Ears, Nose, & Throat: No Symptoms Respiratory: No Symptoms Cardiac: No Symptoms Genitourinary Symptoms: No Symptoms Musculoskeletal: No Symptoms Objective Exam Neurologic Exam: alert, oriented x 3, cooperative Skin Exam: normal color Wound Assessment: Skin/Wound Assessment Wound/Incision Assessment Start: 10/25/22 00:57 Text: Status: Active Freq: Q6H Protocol: Document 10/26/22 07:59 ROXANA (Rec: 10/26/22 08:11 ROXANA [id number]) Wound/Incision Assessment Right Elbow Wound Assessment Shift Assessment Wound Type Skin Tear Wound Stage Non Pressure Wound Dressing Status Dry & Intact Drainage Amount None Primary Dressing steri strips Left Elbow Wound Assessment Shift Assessment Wound Type Skin Tear Wound Stage Non Pressure Wound Dressing Status Dry & Intact Drainage Amount None Drainage Odor None/Absent Length (cm) (cm) 7 Width (cm) (cm) 4 Depth (cm) (cm) 2 Primary Dressing window dressing Comment DRESSING REMAINS INTACT Wound Photo Photo Taken No Neck Exam: normal inspection Respiratory Exam: normal breath sounds Cardiovascular Exam: regular rate/rhythm, normal heart sounds OBJECTIVE DATA Vital Signs: Vital Signs - 24 hr Temp Pulse Resp BP Pulse Ox 10/26/22 07:24 97.8 F 88 17 108/55 96 10/26/22 03:56 97.7 F 73 16 93/58 97 10/26/22 00:00 97.8 F 72 16 118/56 90 L 10/25/22 19:52 97.8 F 76 16 95/53 90 L 10/25/22 15:55 97.9 F 73 16 106/62 97 10/25/22 11:30 97.7 F 76 16 102/56 96 Pain Assessment - Last Documented Pain Intensity 4 Pain Scale Used 0-10 Pain Scale Intake and Output: Intake & Output 10/23/22 10/24/22 10/25/22 10/26/22 11:59 11:59 11:59 11:59 Intake Total 248 1592 Output Total 0132 3208 Balance -1587 -267 Weight 68.719 kg Lab Results: Lab Results-Last 24 Hours 10/25/22 10/25/22 10/25/22 Range/Units 10:20 11:12 18:26 WBC (4.0-10.5) x10^3/uL RBC (4.1-5.6) x10^6/uL Hgb (12.5-18.0) g/dL Hct (42-50) % MCV (78-100) fL MCH (26-32) pg MCHC (32-36) g/dL RDW (11.5-14.0) % Plt Count (150-450) x10^3/uL MPV (7.5-11.0) fL Sodium (137-145) mmol/L Potassium (3.5-5.1) mmol/L Chloride (98-107) mmol/L Carbon Dioxide (22-30) mmol/L Anion Gap (5-15) MEQ/L BUN (9-20) mg/dL Creatinine (0.66-1.25) mg/dL Estimated GFR ML/MIN Glucose (74-106) mg/dL POC Glucometer 87 104 (74 to 106) mg/dL Hemoglobin A1c 5.83 (4.5-6.0) % Calcium (8.4-10.2) mg/dL 10/26/22 10/26/22 10/26/22 Range/Units 02:18 05:35 05:35 WBC 4.3 (4.0-10.5) x10^3/uL RBC 4.51 (4.1-5.6) x10^6/uL Hgb 13.6 (12.5-18.0) g/dL Hct 44.0 (42-50) % MCV 97.6 (78-100) fL MCH 30.2 (26-32) pg MCHC 30.9 L (32-36) g/dL RDW 14.4 H (11.5-14.0) % Plt Count 168 (150-450) x10^3/uL MPV 11.3 H (7.5-11.0) fL Sodium 137 (137-145) mmol/L Potassium 5.2 H (3.5-5.1) mmol/L Chloride 109 H (98-107) mmol/L Carbon Dioxide 18 L (22-30) mmol/L Anion Gap 16.2 H (5-15) MEQ/L BUN 46 H (9-20) mg/dL Creatinine 2.41 H (0.66-1.25) mg/dL Estimated GFR 27.4 ML/MIN Glucose 108 H (74-106) mg/dL POC Glucometer 111 H (74 to 106) mg/dL Hemoglobin A1c (4.5-6.0) % Calcium 8.5 (8.4-10.2) mg/dL 10/26/22 Range/Units 07:07 WBC (4.0-10.5) x10^3/uL RBC (4.1-5.6) x10^6/uL Hgb (12.5-18.0) g/dL Hct (42-50) % MCV (78-100) fL MCH (26-32) pg MCHC (32-36) g/dL RDW (11.5-14.0) % Plt Count (150-450) x10^3/uL MPV (7.5-11.0) fL Sodium (137-145) mmol/L Potassium (3.5-5.1) mmol/L Chloride (98-107) mmol/L Carbon Dioxide (22-30) mmol/L Anion Gap (5-15) MEQ/L BUN (9-20) mg/dL Creatinine (0.66-1.25) mg/dL Estimated GFR ML/MIN Glucose (74-106) mg/dL POC Glucometer 98 (74 to 106) mg/dL Hemoglobin A1c (4.5-6.0) % Calcium (8.4-10.2) mg/dL Radiology Exams: Radiology Procedures Category Date Time Status ABDOMEN AND PELVIS W/0 CONTRAS [CT] Stat Exams 10/24/22 21:21 Completed CHEST 1 VIEW (PORTABLE) Stat Exams 10/24/22 23:33 Completed Assessment/Plan (1) Small bowel obstruction Current Visit: Yes Status: Acute Assessment & Plan: (1) Small bowel obstruction Current Visit: Yes Status: Acute Assessment & Plan: Hx of UC and ostomy. CT abd shows SBO. NPO, NGT to suction. IVF. General Surgery consulted, Dr Moreira, saw patient, not surgical candidate due to renal function, surgical rec not entirely clear - transfer to regional vs conservative management. r patient, would like to stay and try clamping NG tube. if not tolerated; if diet cannot be advanced; will transfer to regional. Urologist Isis Cerda also there and was planning potential suprapubic catheter per patient in clinic Code(s): K56.609 - UNSP INTESTNL OBST, UNSP TO PARTIAL VERSUS COMPLETE OBST (2) Renal failure, chronic Current Visit: No Status: Chronic Qualifiers: Chronic kidney disease stage: stage 4 (severe) Qualified Code(s): N18.4 - Chronic kidney disease, stage 4 (severe) Assessment & Plan: Has hx of CKD. Baseline eGFR reportedly is around 33. GFR is 30.5 at this time, so not far off from his baseline. Avoid further nephrotoxins - IV contrast, NSAIDs, hypotension. Dose all meds accordingly BNP noted to be 14,000. CT shows BL basilar effusion and cardiomegaly - per radiology report. But pt has no overt sign of CHF. He is getting IVF for NPO status, but will run it cautiously at 70ml/hr. He is not septic on arrival, so no need for aggressive fluid either (3) Acidosis, metabolic Current Visit: Yes Status: Acute Assessment & Plan: Has a hx of this, takes bicarb at home. HCO3 15. He is NPO due to SBO. Plan IVF Code(s): E87.20 - ACIDOSIS, UNSPECIFIED (4) Ulcerative colitis Current Visit: Yes Status: Acute Assessment & Plan: Has a hx of this and is not on any home med for this. Has ostomy creation/revisions over the years. CT did not show any inflammation, nor does pt have any symptoms to suggest an acute flare Code(s): K51.90 - ULCERATIVE COLITIS, UNSPECIFIED, WITHOUT COMPLICATIONS (5) BPH (benign prostatic hyperplasia) Current Visit: Yes Status: Acute Assessment & Plan: On Flomax at home, no acute complaint here. Once able to take oral, will resume home med Code(s): N40.0 - BENIGN PROSTATIC HYPERPLASIA WITHOUT LOWER URINRY TRACT SYMP (6) Pancreatitis Current Visit: Yes Status: Acute Assessment & Plan: Lipase 680s. May be due to lack of renal clearance. He has no hx of this. Monitor Code(s): K85.90 - ACUTE PANCREATITIS WITHOUT NECROSIS OR INFECTION, UNSP Code(s): K56.609 - UNSP INTESTNL OBST, UNSP TO PARTIAL VERSUS COMPLETE OBST Code(s): K56.609 - UNSP INTESTNL OBST, UNSP TO PARTIAL VERSUS COMPLETE OBST Telemedicine Encounter - Telemedicine Encounter Telemedicine Encounter: The entirety of this encounter was performed via Telemedicine"
[2022-10-26] MEDS: PROTONIX 40 MG IV IV SCH (09:52)
[2022-10-26] MEDS: HEPARIN 5000 UNITS/0.5 ML (HIGH RISK MED) SQ SCH ×2 (09:52→21:11)
[2022-10-26] MEDS: Dextrose 5%/Water IV Soln. 1000 ML 1,000 ML IV SCH (10:50)
[2022-10-26 19:48] VITALS: BP 115/58; PULSE 81; RESP 16; TEMP 99.1; O2SAT 92
--- NOTE | 2022-10-26 22:14 | TM.IN ---
Tele-Medicine Incident Note - Incident Note Tel-Medicine Incident Note: 10/26/22 3588 Based on the recommendation for transfer by Dr. Moreira via the nursing staff, and the failed attempt to clamp the patient's NG tube, and the patient's renal failure and uropathy history, a request for transfer to [facility] has been initiated. Based on the initial dialog with the the hospitalist child care team lead production operations inspector, a repeat CT abdomen/pelvis without contrast has been ordered for reassessment. The on-call provider is attempting to further discuss the case with Dr. Moreira with the coordination of the transfer centerl, to determine whether the transfer will be accepted. Telemedicine Encounter - Telemedicine Encounter Telemedicine Encounter: The entirety of this encounter was performed via Telemedicine"
--- NOTE | 2022-10-26 22:48 | TM.IN ---
Tele-Medicine Incident Note - Incident Note Tel-Medicine Incident Note: 10/26/[address] scan pending, but in the interim, Dr. Moreira had a discussion with [facility] about surgical recommendations, and Sloane Blancas NP of the hospitalist service has accepted the transfer. Full discharge summary to be completed by Dr. Kim. Telemedicine Encounter - Telemedicine Encounter Telemedicine Encounter: The entirety of this encounter was performed via Telemedicine"
--- NOTE | 2022-10-27 00:18 | XRAY ---
CLINICAL HISTORY:BOWEL OBSTRUCTION COMPARISON:10/25/2022. TECHNIQUE:CT scan of the abdomen and pelvis was performed without contrast. Coronal and sagittal reconstructive images were also obtained. FINDINGS: An ostomy site is seen in the anterior right lower quadrant of the abdomen with herniated bowel. A bowel loop containing anterior hypogastric hernia is noted with dilation of the proximal bowel loops, likely the jejunum. The duodenum is normal in diameter. The stomach is normal distended with NGT within. A suspicious duodenal diverticulum with air-fluid level is seen along the medial aspect of the 3rd and 4th duodenum. The urinary bladder exhibit air-fluid levels with thickened wall and surrounding fat strandings. An indwelling Moncada catheter is noted within. New free fluid in the pelvis. The liver is normal in size measuring 12.6 cm craniocaudally. There are tiny calcifications in the caudate and left liver lobes. The portal vein, intrahepatic biliary radicals, and bile ducts are normal. The spleen is normal in size. Multiple tiny calcifications are scattered in the parenchyma. The pancreas is normal in size. Multiple coarse calcifications are seen adjacent to the pancreatic head and 2nd part of the duodenum. The adrenal glands are unremarkable. The kidneys are normal in size and shape. No cysts, mass, calculi, or hydronephrosis. The gallbladder is distended with a 1.4 cm stone within. There is no evidence of wall thickening/ pericholecystic collection. There is no evidence of significant enlargement of the mesenteric or retroperitoneal lymph nodes. Atherosclerotic aorta and its branches. No evidence of pelvic lymphadenopathy. Osteophytes are notes along the anterior endplates of the vertebrae. There is grade 1 retrolisthesis of L5 over S1. The rest of the osseous structures in the pelvis, lower rib cage, and lumbar spine show no abnormality. There is minimal bilateral pleural effusion. Consolidations are seen in the basal segment of the right lower lobe. IMPRESSION: 1. Ostomy site in the anterior right lower quadrant of the abdomen with herniated bowel. No signs of bowel obstruction. 2. Acute bowel obstruction involving the jejunum, secondary to bowel-loop containing hypogastric/epigastric hernia. Mild interval increase in bowel dilatation when compared with the previous study. No evidence of perforation. 3. Thickened urinary bladder wall with intraluminal air-fluid levels. An indwelling Moncada catheter is present. The air may be iatrogenic. 4. Free fluid in the pelvis. 5. Cholelithiasis with no sign of cholecystitis 6. Minimal bilateral pleural effusion with new consolidations in the basal segment of the right lower lobe, may be inflammatory or infectious in origin. Electronically Signed by: Ermias Alicia MD. (10/26/2022 23:16:57 [facility])
--- NOTE | 2022-10-27 10:17 | CONS ---
CONSULT DATE: 10/25/2022 HISTORY: I was called during the night for this 82-year-old with history of ulcerative colitis. It sounds like he had total colectomy or subtotal colectomy in the past. He has problems with benign prostatic hypertrophy and apparently Dr. Cerda had recommended what sounds like a suprapubic catheter or something in the past. He had ostomy revisions over the years. Dr. Limon worked on him in the past about three years ago. He came in and had a little bit of cramping. He had some fluid and gas-filled bowel loops. He does have multiple chronic hernias and question if he had obstruction. It was felt he needed admission. The emergency room doctor talked to me but did not tell me about his significant renal problems. He is followed by Dr. Cerda. Apparently his kidney function was 30-32% in the past. He has seen Dr. Guajardo. Dr. Cerda recommended suprapubic catheter in the past. PAST MEDICAL HISTORY: Ulcerative colitis. Renal disease. Renal failure which they did not notify me of the fact that he had been followed by wanda and Dr. Cerda in the past, this was not passed on to me from the emergency room physician. PAST SURGICAL HISTORY: Colectomy. Ileostomy. He had some ostomy revision in the past. Knee surgery. Rotator cuff. HOME MEDICATIONS: Urecholine, Flomax, folic acid, gabapentin, sodium bicarbonate. ALLERGIES: SULFAMETHOXAZOLE. TRIMETHOPRIM. FAMILY HISTORY: Negative in regards to this specific problem. SOCIAL HISTORY: No smoking or alcohol abuse. REVIEW OF SYSTEMS: Fourteen systems reviewed pertinent for as noted above in admission assessment. No chest pain or palpitations currently. PHYSICAL EXAMINATION: His vitals are on the chart. Blood pressure 112/70, pulse 68, respiratory rate 18. Pulse ox 92. GENERAL: No acute distress. HEENT: Sclera nonicteric. EOMI. Oral mucous membranes moist. NECK: No JVD. CHEST: Equal excursion, nonlabored breathing. CVS: Regular rate and rhythm. ABDOMEN: Very soft. He has got some mild distention but the palpable hernia mentioned by the radiology department on abdominal wall is soft and reducible at this time. He does have some stool and gas in his ostomy in the right abdomen. No peritoneal signs. EXTREMITIES: No significant edema. NEURO: Alert, moving extremities symmetrically. PSYCH: Appropriate mood and affect. : He does have a Moncada in place. There is a little bit of blood and urine in the catheter. SKIN: Dry. LAB DATA AND TESTS: White count 8.3, hemoglobin 13.7. PLT count 215,000. Liver function test unremarkable. Lipase elevated 684. Lactic acid 1.2. IMPRESSION: An 82-year-old has problem with benign prostatic hypertrophy. He has had renal failure and renal failure issues and in fact he is followed by Dr. Cerda which was not passed on to me when they called me last night. Otherwise he was admitted here. His abdomen was completely soft. He is nontoxic. He is medically stable. He does not need any emergent surgical intervention. He does have an NG and he is to continue bowel rest, IV hydration. He may very well have a hostile abdomen and the fact that he has had several ostomy revisions in the past. He has palpable but reducible hernias on his abdominal wall in the stomal area. So whether he has partial obstruction or whether he has some enteritis or ileus either way no emergent surgery is necessary. He would likely not be an easy case if he required surgery. He wants to continue trial of conservative management. If he fails to improve, will need consideration of operative intervention most likely would not be easy. He will have his bridge engineer and urologist to follow up. I will follow with you. No emergent surgery is necessary. Monitor his renal issues and obstructive bladder issues closely to decide if he needs to see nephrology. I will follow with you.
--- NOTE | 2022-10-27 12:03 | PROG NOTE ---
DATE: 10/26/2022 HISTORY: An 82-year-old gentleman with problems with dysphagia. He had a colectomy. He had some ostomy relocations performed by Dr. Limon in the past. He had partial obstruction. The emergency room physician called me the other night but did not inform me of significant renal problems or that he followed with Dr. Cerda. He elected to keep him at [facility]. However the patient yesterday morning had some stool coming out of the ostomy bag. He had reducible abdominal wall hernia that did not need emergent surgery. He had NG in position. I was tied up with an emergency earlier this morning at another hospital. They called at 5 a.m. The nursing staff said the patient had requested to be transferred to [facility] to see Dr. Cerda his agent. He said that the hospitalist did not want to transfer him at that time. I suggested they work the patient in at the earliest so he could be seen by his agent given his renal failure that I was not informed of. He is followed with a agent in [place] as well as his urologist and was recommended suprapubic catheter. I informed the nurse that it is fine not to transfer in the middle of the night but to start working on the transfer early in the morning. I will be tied up all day at [facility]. It was Thursday night when I was called up doing multiple cases at another hospital. I called to check to see if the patient had been transferred to [place]. Nursing staff informed that they did not transfer the patient. Unclear why not. Incidentally on evaluation of the patient his white count was 4, blood pressure was stable. He was nontoxic. His abdomen was soft. His ventral hernia was reducible. He had a chronic parastomal hernia. He did have some liquid stool in the bag. He does not need any emergent surgery. If he fails to improve by the morning, he could get small bowel follow through discussed at length with the patient. He is concerned and would like to see Dr. Cerda for potential suprapubic catheter as recommended in the past as well as follow up with agent. The small bowel follow through could be done in [place] on Thursday. It was felt best the patient would be better off transferring to [facility] so he could be followed by his specialists. Therefore it was recommended and the patient agreed to be transferred there where he could be seen by Dr. Cerda and his agent. Small bowel follow through could be done at [facility] if he does not dramatically improve. Otherwise, as Dr. Limon has operated on this patient then possibly Dr. Gerry Limon could evaluate the patient as I will be tied up elsewhere and unavailable to see the patient. The patient understood and agreed with the plan. Again, the patient himself requested transfer during the night for in the morning. At this point no emergent surgery necessary this evening and the patient have transfer should he need possible surgical intervention if necessary, kidney dialysis and allow for access to see his specialist.
== END 2022-10-26 23:35 | disposition short-term general hospital (02) ==
LOC: ED 20:44 → MED SURG 23:53
PROVIDERS: ADMIT Internal Medicine; ATTEND Internal Medicine
DX: K56.609 Unspecified intestinal obstruction, unspecified as to partial versus complete obstruction (principal); N18.4 Chronic kidney disease, stage 4 (severe); E87.20 Acidosis, unspecified; K51.90 Ulcerative colitis, unspecified, without complications; N40.0 Benign prostatic hyperplasia without lower urinary tract symptoms; K85.90 Acute pancreatitis without necrosis or infection, unspecified; S51.011A Laceration without foreign body of right elbow, initial encounter; S51.012A Laceration without foreign body of left elbow, initial encounter; K43.9 Ventral hernia without obstruction or gangrene; Z79.899 Other long term (current) drug therapy; Z20.828 Contact with and (suspected) exposure to other viral communicable diseases; Z72.0 Tobacco use
CPT/HCPCS: 36000; 36415; 51702; 71045; 74176; 80048; 80053; 81001; 82947; 83036; 83605; 83690; 83880; 84134; 85025; 85027; 87086; 93268; 96374; 96375; 96376; 99285; G0378; Q3014; J1644; J2270; J2405; A9270-GY